=== PATIENT | female | born 1995 | race Caucasian/White ===

== ENCOUNTER → 2016-12-19 | Outpatient (CLI) | payer MEDICAID ==
[~2016-12-19] MED LIST: ADIPEX-P37.5 M2 PO; ESCITALOPRAM10 M1 PO; ROBAXIN-750750 MG PO; TORADOL10 MG PO
[2016-12-22 14:39] LABS: Neisseria gonorrhoeae, NAA Negative (Negative)
== END ==
LOC: LAB 16:54
PROVIDERS: Nurse Practitioner Obstetrics & Gynecology
DX: Z34.80 Encounter for supervision of other normal pregnancy, unspecified trimester (principal)

== ENCOUNTER 2017-04-23 21:09 | Emergency (ER) | payer MEDICAID ==
[~2017-04-23] VITALS: Ht 170.2 cm; Wt 138.8 kg
--- NOTE | 2017-04-23 21:24 | Emergency Room Report ---
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 N Clinical Suspician of Infection? Y Mental Status: 1 - Regular (Normal Baseline) Sepsis Risk:Low Sepsis Risk Have you (or family members/close friends) recently traveled outside the [place]? N If Yes, where/when: Have you had exposure to infectious disease within the past month? TB? Other? Specify: Source patient, RN notes reviewed, family, old records Exam Limitations no limitations Comment 36 weeks with nausea and back pain with no fever or vag bleeding or labor crampy pain - has not felt well for a few days Cardiac Chest Pain Chest pain indicative of cardiac No Timing/Duration this evening Severity moderate ALLERGIES Coded Allergies: No Known Allergies (03/15/17) History Medical History General CAD? No Angina: No HI: No Hypertension? No Hyperlipidemia? No CHF? No DVT? No PE? No COPD? No Asthma? No Anemia? No GERD? No Gastric ulcers? No GI Bleed? No Hernia? No Thyroid Problems? No Hypothyroidism? No CVA? No Seizures? No Diabetes? No Renal Insuffiency? No End Stage Renal Disease? No UTI? No Stones? No BPH? No GB Disease: No Nephritic Syndrome? No Asplenia? No Hepatitis? No Sickle Cell Disease? No Arthritis? No Migraines? No Cataracts? No Glaucoma? No MRSA? No HIV? No TB? No Anxiety? No Depression? No Cancer? No More? 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 Respiratory denies cough, denies shortness of breath, denies wheezing Cardiovascular denies chest pain, denies palpitations Gastrointestinal see HPI, denies abdominal pain, diarrhea, nausea, denies vomiting Genitourinary denies: abnormal vaginal bleeding, dysuria, frequency, hesitancy, hematuria. Musculoskeletal denies back pain, denies joint pain, denies joint swelling, denies neck pain Skin denies rash Psychiatric/Neurological see HPI, headache, denies seizure Physical Exam Vital Signs Vital Signs Date Time Temp Pulse Resp B/P Pulse O2 O2 Flow FiO2 Ox Delivery Rate 04/23 2250 82 18 112/61 97 04/23 215 91 18 129/68 97 04/23 2114 98.0 86 14 120/70 97 - WBC >12,000 or <4,000 or 10% bands? 2 or more SIRS Criteria Met? B/P:112/ MAP:86 Creatinine >2.0? UA output<0.5ml/kg/hr for 2 hrs? Platelet count >100,000? Lactate >2.0mmol/1? INR >1.2 or PTT > than 60 sec? Evidence of Organ Dysfunction? Provider documented clinical suspician of infection? Y Sepsis Criteria Count: 1 Sepsis Risk: Low Sepsis Risk General Appearance no apparent distress Eye Exam - bilateral eye PERRL, bilateral eye EOMI Ear, Nose, Throat normal ENT inspection Neck non-tender Respiratory Status No: respiratory distress. 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 No Results/Orders Laboratory Tests 04/23/172157: Urine Color YELLOW, Urine Appearance CLEAR, Urine pH 6.5, Ur Specific [place] 1.020, Urine Protein NEGATIVE, Urine Ketones NEGATIVE, Urine Blood NEGATIVE, Urine Nitrate NEGATIVE, Urine Bilirubin NEGATIVE, Urine Urobilinogen 0.2, Ur Leukocyte Esterase 2+ H, Urine RBC 3-5, Urine WBC 20-50, Ur Squamous Epith Cells TNTC, Amorphous Sediment 3+, Urine Bacteria 3+, Urine Glucose NEGATIVE 04/23/172139: Sodium 137, Potassium 3.7, Chloride 104, Carbon Dioxide 24, BUN 6 L, Creatinine 0.7, Estimated Creat Clear 279 H, Estimated GFR (MDRD) 106, Glucose 93, Calcium 9.1, Total Bilirubin 0.2, AST 9 L, ALT 14, Alkaline Phosphatase 147 H, Total Protein 6.6, Albumin 2.4 L, Globulin 4.2 H, Albumin/Globulin Ratio 0.6 L, Amylase 27, Lipase 86, WBC 11.1 H, RBC 3.80 L, Hgb 11.0 L, Hct 33.0 L, MCV 86.9, RDW 14.2, Plt Count 215, MPV 8.8, Gran % 69.7, Gran # 7.7, Lymphocytes % 21.7, Monocytes % 6.2, Eosinophils % 2.2, Basophils % 0.2, Lymphocytes # 2.4, Monocytes # 0.7, Eosinophils # 0.2, Basophils # 0.0, PUBS MCHC 33.5, MCH 29.1 Current Medication Orders Sig/Ck Start time Last Medication Dose Route Stop Time Status Admin Ampicillin Sodium 2 GM ONCE ONE 04/230 AC Sodium Chloride 50 ML IV 04/23 2314 Ampicillin Sodium 0 .STK-MED ONE 04/23 2259 DC IV Sodium Chloride 250 ML .STK-MED ONE 04/23 2259 DC IV Sodium Chloride 1,000 ML .STK-MED ONE 04/23 2144 DC IV Sodium Chloride 1,000 ML .Q1H1M 04/23 2130 DC 04/23 IV 04/23 Sodium Chloride 10 ML PRN PRN 04/23 2130 AC IV 04/24 2123 Sodium Chloride 10 ML PRN PRN 04/23 2130 AC IV 04/24 2124 Sodium Chloride 1,000 ML .Q1H1M 04/23 2130 DC 04/23 IV 04/23 Sodium Chloride 10 ML PRN PRN 04/23 2130 AC IV 04/24 2129 Orders Procedure Date/time Status CULTURE, URINE 04/23 2158 Active IV SALINE LOCK 04/23 2126 Active URINALYSIS/COMPLETE 04/23 2123 Complete LIPASE 04/23 2123 Complete CBC WITH AUTO DIFF 04/23 2123 Complete CHEM 12 PROFILE 04/23 2123 Complete AMYLASE 04/23 2123 Complete Departure Departure Time of Disposition 2248 Disposition DC Home or Self Care(routine) Clinical Impression Primary Impression: UTI (urinary tract infection) Qualifiers: Urinary tract infection type: acute cystitis Hematuria presence: without hematuria Qualified Code: N30.00 - Acute cystitis without hematuria Secondary Impressions: Qualifiers: Weeks of gestation: 36 weeks Qualified Code: Z3A.36 - 36 weeks gestation of Condition STABLE Referrals AHMET MOSS (Family) discussed with dr rojas Patient Instructions DI for Vomiting -- Adult Additional Instructions will go to ob for nst and call ob for follow up Discharge Counseling Counseled pt/family regarding diagnosis, test results, follow up needs ED Critical Care Critical Care No at 2301
[2017-04-23 21:55] LABS: LYMPH # 2.4 K/mm3 (0.7-4.5); LYMPH % 21.7 % (10-50.0)
[2017-04-23 22:09] LABS: URINE BILIRUBIN - DIPSTICK NEGATIVE (NEG); URINE BLOOD NEGATIVE (NEG)
[2017-04-23 22:31] LABS: URINE SQUAMOUS CELLS TNTC #/hpf (0-5)
[2017-04-24 00:04] VITALS: BP 112/61
== END 2017-04-23 23:52 | disposition home or self-care (01) ==
LOC: ER 21:09
PROVIDERS: Emergency Medicine
DX: O23.13 Infections of bladder in pregnancy, third trimester (principal); Z3A.36 36 weeks gestation of pregnancy; Z87.891 Personal history of nicotine dependence

== ENCOUNTER 2017-04-23 23:00 | Outpatient (CLI) | payer MEDICAID ==
[~2017-04-23] VITALS: Ht 170.2 cm; Wt 140.2 kg
[2017-04-23 23:59] VITALS: BP 139/78
== END 2017-04-24 00:40 | disposition home or self-care (01) ==
LOC: OB 23:00 → OBOUT 23:00 → OB 23:01 → OBOUT 04-24 00:40
DX: O26.93 Pregnancy related conditions, unspecified, third trimester (principal); Z3A.36 36 weeks gestation of pregnancy; R51 Headache; R53.1 Weakness; R11.0 Nausea

== ENCOUNTER 2017-05-06 21:50 | Outpatient (CLI) | payer MEDICAID ==
[~2017-05-06] VITALS: Ht 170.2 cm; Wt 138.8 kg
[2017-05-06 22:25] VITALS: BP 138/80
[2017-05-06 22:46] LABS: AMPHETAMINES/METAMPHETAMINES NEGATIVE ng/mL (<1000)
== END 2017-05-06 23:20 | disposition home or self-care (01) ==
LOC: OBOUT 21:50 → OB 21:53 → OBOUT 23:20
PROVIDERS: Nurse Practitioner Obstetrics & Gynecology
DX: O36.8130 Decreased fetal movements, third trimester, not applicable or unspecified (principal); Z3A.38 38 weeks gestation of pregnancy; R10.2 Pelvic and perineal pain

== ENCOUNTER 2017-05-15 01:55 | Inpatient (IN) | payer MEDICAID ==
[~2017-05-15] VITALS: Ht 170.2 cm; Wt 137.4 kg
[2017-05-15 05:48] LABS: HEMOGLOBIN 11.6 g/dL (12.2-16.2); LYMPH # 2.2 K/mm3 (0.7-4.5); LYMPH % 20.8 % (10-50.0)
[2017-05-15 05:50] VITALS: BP 114/55
[2017-05-15] MEDS ORDERED: PRENATAL PLUS1 TA1 PO (05:55)
[2017-05-15] MEDS ORDERED: PHENERGAN25 M3 PO (05:56)
[2017-05-15 06:09] LABS: ABO BLOOD TYPE O
[2017-05-15 06:10] LABS: RH BLOOD TYPE POSITIVE
[2017-05-15 07:15] VITALS: BP 103/68
--- NOTE | 2017-05-15 07:48 | LABOR NOTE ---
Laboring Subjective Subjective Date 05/15/17 Time 0746 Subjective: Pt is having regular contractions Laboring Objective Objective NST: Reactive Contractions: q 2-3 minutes Cervical dilation: 2 Effacement: 75% Station: -2 Membranes are: Artificially ruptured (with clear fluid) Fetus monitoring? Yes Type: Internal Comment: I inserted an IUPC and clip Laboring Assessment Assessment Progressing? Yes Cephalopelvic disproportion? No Problem List: 1. Normal delivery Laboring Plan Plan Anethesia for epidural? No Continue to labor down? Yes Plan for ? No Continue to monitor? Yes Start pushing? No at 0747
[2017-05-15 10:39] LABS: URINE BILIRUBIN - DIPSTICK NEGATIVE (NEG); URINE BLOOD NEGATIVE (NEG)
[2017-05-15 10:56] LABS: AMPHETAMINES/METAMPHETAMINES NEGATIVE ng/mL (<1000)
--- NOTE | 2017-05-15 11:16 | LABOR NOTE ---
Laboring Subjective Subjective Date 05/15/17 Time 1114 Subjective: Pt is having regular contractions Laboring Objective Objective NST: Reactive Contractions: q 2-3 minutes Cervical dilation: 3-4 Effacement: 90% Station: -1 Membranes are: Artificially ruptured Fetus monitoring? Yes Type: Internal Laboring Assessment Assessment Progressing? Yes Cephalopelvic disproportion? No Problem List: 1. Normal delivery Laboring Plan Plan Anethesia for epidural? Yes Continue to labor down? Yes Plan for ? No Continue to monitor? Yes Start pushing? No at 1115
--- NOTE | 2017-05-15 13:39 | LABOR NOTE ---
Laboring Subjective Subjective Date 05/15/17 Time 1338 Subjective: Pt is having regular contractions Laboring Objective Objective NST: Reactive Contractions: q 2-3 minutes Cervical dilation: 4 Effacement: 90% Station: -1 Membranes are: Artificially ruptured Fetus monitoring? Yes Type: Internal Laboring Assessment Assessment Progressing? Yes Cephalopelvic disproportion? No Problem List: 1. Normal delivery Laboring Plan Plan Anethesia for epidural? Yes Continue to labor down? Yes Plan for ? No Continue to monitor? Yes Start pushing? No at 1336
--- NOTE | 2017-05-15 15:14 | LABOR NOTE ---
Laboring Subjective Subjective Date 05/15/17 Time 1513 Subjective: Pt is having urge to push, Pt is having regular contractions Laboring Objective Objective NST: Reactive Contractions: q 2-3 minutes Cervical dilation: 4 Effacement: 100% Station: -1 Membranes are: Artificially ruptured Fetus monitoring? Yes Type: Internal Laboring Assessment Assessment Progressing? Yes Cephalopelvic disproportion? No Problem List: 1. Normal delivery Laboring Plan Plan Anethesia for epidural? Yes Continue to labor down? Yes Plan for ? No Continue to monitor? Yes Start pushing? No at 1514
--- NOTE | 2017-05-15 17:22 | ACUTE CARE PROGRESS NOTE (QUA) ---
Progress Notes Subjective Date 05/15/17 Time 1719 Note She has had regular contractions all day and really has not progressed beyond 4 cm. The head has significant molding but is still high. The cervix is 90 percent effaced. Given this lack of progression we will go ahead with a . I discussed the risks of surgery that includes bleeding, infection, injuries to the bowel and bladder. We discussed the rare risk of DVT. All questions were answered and consents were signed. Patient/family reports: no complaints Objective Findings Last VS-Temp:98.2 B/P:103/68 Pulse:70 Resp:17 SaO2: Last weight lbs:303 oz:0 K.440 Method:Stated Exam General appearance: normal appearance, alert, awake, no acute distress Reviewed: vital signs, lab results Assessment/Plan Problem List 1. pelvic disproportion antepartum 2. delivery delivered Patient condition Stable Plan: continue current care, section This inpt stay is expected to cross 2 MNs from start of care Yes Comments: Given the fact that she has not progressed all day despite regular contractions we will go ahead with a section. Since her last baby she has gained a significant amount of weight. I think that her pelvis is obstructed by her additional weight gain. at 1727
--- NOTE | 2017-05-15 18:47 | Operative Note ---
Procedure/Operative Record Procedure Date of procedure: 05/15/17 Pre-Op Dx: Term , mild -induced hypertension, pelvic disproportion, maternal obesity Post-Op Dx: Term , mild induce hypertension, fetopelvic disproportion, maternal obesity Procedure performed: Primary lower segment transverse section Surgeon: Dr. Lars Frank Accounts Receivable Clerk(s): Dr. La Anesthesia: Will Finley, epidural EBL (ml): 600 Clinical note: She is a 22-year-old 2 para 1 who was 39 weeks gestational age. She had a slight increase in her blood pressure in my office in the 140s over 90s range and as result of that we elected to bring her in at term for induction of labor. She's had a previous 7 lbs. 10 oz. baby. She has however gained over 100 pounds since her last baby was born 3 years ago. She was started on IV oxytocin had her membranes ruptured. She really failed to progress beyond 4 cm. She had been at 4 cm for about 5 or 6 hours. After having discussed the risks and benefits we elected to go ahead with a primary lower segment transverse section. Operative findings: She delivered a live-born female child at 6:15 PM in the evening of May 15, 2017. The baby had Apgars of 9 at 1 minute and 9 at 5 minutes. PH was 7.25. The baby's head was not really engaged in the pelvis at all. Operative note: She was taken to the operating room where epidural anesthesia was found be adequate. She was prepped and draped in normal sterile fashion in the supine position with a leftward tilt. A Crockett catheter was in the bladder. A Pfannenstiel skin incision was made with knife then carried through to the underlying layer of fascia with cautery. The fascia was opened in the midline with cautery and extended laterally using Hart scissors. [place] clamps were applied to the superior aspect of the fascial incision which was tented up and the underlying rectus muscles dissected off using cautery. The Trent clamps were then applied to the inferior aspect of the fascial incision which in a similar fashion was tented up and the underlying rectus muscles dissected off using cautery. The rectus muscles were then in the midline, the peritoneum identified, and entered sharply with Metzenbaum scissors. This incision was then extended superiorly and inferiorly with cautery. We had good visualization of the bladder inferiorly. The bladder peritoneum was then opened in the midline and extended laterally using Metzenbaum scissors. A bladder flap was created digitally. The lower blade of the Digna was inserted so as to push the bladder out of the way. Transverse incision was made through the uterine muscle to the amnion. This incision was then extended laterally using fingers traction. The amnion was entered sharply with knife. The infant's head was then delivered atraumatically. This was followed by the anterior shoulder and the rest of the 's body atraumatically. The oropharynx and nasopharynx were bulb suctioned. The infant was then handed off to Dr. Grimaldo who assigned Apgars of 9 at 1 minute and 9 at 5 minutes. We then obtained cord blood as well as cord pH. Using gentle traction on the cord and countertraction on the fundus I was able to easily deliver the placenta intact. It had a normal three-vessel cord. The uterus was then cleared of clots and debris and exteriorized from the abdominal cavity. The uterine incision was then closed using running 0 Vicryl suture in a locked fashion. A second layer of the same suture was used to imbricate the first layer. The bladder peritoneum was then closed using running 2-0 Vicryl suture in a locked fashion. The gutters and cul-de-sac were then cleared of clots and debris and the uterus was returned the abdominal cavity. Once again hemostasis was assured. The peritoneum was grasped with Jie clamps and closed using running 2-0 Vicryl suture. The rectus muscles were then reapproximated using running 0 Vicryl suture. The fascia was closed using running #1 Vicryl suture. The subcutaneous tissues were then irrigated with warm water followed by closure Sia's fascia using running 2-0 Monocryl suture. The skin was closed with jono. The skin was then doubly cleansed with Hibiclens. Sterile dressings were applied. She tolerated the procedure well and was taken to the recovery room in excellent condition. All sponges minute and needle counts were correct. Estimate a blood loss was approximately 600 mL. Conplications: None Specimens: Products of conception at 1846
--- NOTE | 2017-05-15 18:55 | Anesthesia Record ---
Anesthesia Record Part I Total IV fluids: 1200 EBL (ml): 600 Urine Output: 500 B/P: 119/57 % SaO2: 98 Pulse: 77 Resps: 18 Temp: 97.6 Patient is: Awake, Stable Stable to PACU at: 1854 at 1856
--- NOTE | 2017-05-15 18:57 | Anesthesia Record ---
Anesthesia Record Part II Discharge time: 1953 Destination: OB PACU nurse assessment review? Yes Patient is: Awake, Stable Anesthesia complications? No at 4305
[2017-05-15 22:00] VITALS: BP 141/64
[2017-05-16 06:26] LABS: HEMOGLOBIN 10.7 g/dL (12.2-16.2)
--- NOTE | 2017-05-16 08:41 | ACUTE CARE PROGRESS NOTE (QUA) ---
Progress Notes Subjective Date 05/16/17 Time 0839 Note She continues to do very well. She is eating and drinking and ambulating. She is breast-feeding. Her lochia is normal. Her pain is well controlled. Patient/family reports: feeling better, no complaints Objective Findings Last VS-Temp:97.8 B/P:141/64 Pulse:85 Resp:18 SaO2:100 ROOM AIR Last weight lbs:303 oz:0 K.440 Method:Stated Laboratory Tests 05/16/17 0600: Hgb 10.7 L, Hct 32.9 L 05/15/17 1827: Cord Blood pH 7.25 L 05/15/17 0940: Opiates Screen NEGATIVE, Urine Methadone Screen NEGATIVE, Barbiturates NEGATIVE, Phencyclidine Screen NEGATIVE, Amphetamines Screen NEGATIVE, Benzodiazepines Screen NEGATIVE, Cocaine Screen NEGATIVE, Marijuana (THC) Screen NEGATIVE, Urine Color YELLOW, Urine Appearance CLEAR, Urine pH 6.5, Ur Specific [place] 1.010, Urine Protein NEGATIVE, Urine Ketones NEGATIVE, Urine Blood NEGATIVE, Urine Nitrate NEGATIVE, Urine Bilirubin NEGATIVE, Urine Urobilinogen 0.2, Ur Leukocyte Esterase NEGATIVE, Urine RBC NONE, Urine WBC 3-5, Ur Squamous Epith Cells NONE, Urine Bacteria TRACE, Hyaline Casts OCC, Urine Glucose NEGATIVE Exam General appearance: normal appearance, alert, awake, no acute distress Reviewed: vital signs, lab results Assessment/Plan Problem List 1. pelvic disproportion antepartum 2. delivery delivered Patient condition Improving, Stable Plan: continue current care This inpt stay is expected to cross 2 MNs from start of care Yes Comments: She continues to do very well. We will plan to send her home in 48 hours. at 0840
--- NOTE | 2017-05-16 08:45 | Discharge Summary ---
Discharge Summary Admission date: 05/15/17 Discharge date: 05/18/17 Discharge diagnoses: Term , fetopelvic disproportion, maternal obesity, mild - induced hypertension Clinical note: She is a 22-year-old 2 para 2 who was 39 weeks gestational age. She seen in my office and had increased blood pressure. As result of that we brought her in for induction of labor. Course in hospital: She was started on IV oxytocin and had her membranes ruptured. She really did not progress beyond 4 cm and as result of that we elected to perform a primary lower segment transverse section. She has gained over 100 pounds since her last delivery. On May 15, 2017 she underwent a primary lower segment transverse section and delivered a live-born female child. She weighed 7 lbs. 10 oz. and was 19 inches long. She had Apgars of 9 at 1 minute and 9 at 5 minutes. She has done well and has remained afebrile throughout her hospitalization. She is eating and drinking and ambulating. She is breast- feeding. She has O+ blood, she is rubella immune and was group B Streptococcus negative. Her final assembly inspector is Dr. Medrano. Laboratory Tests 05/16/17 0600: Hgb 10.7 L, Hct 32.9 L 05/15/17 1827: Cord Blood pH 7.25 L 05/15/17 0940: Opiates Screen NEGATIVE, Urine Methadone Screen NEGATIVE, Barbiturates NEGATIVE, Phencyclidine Screen NEGATIVE, Amphetamines Screen NEGATIVE, Benzodiazepines Screen NEGATIVE, Cocaine Screen NEGATIVE, Marijuana (THC) Screen NEGATIVE, Urine Color YELLOW, Urine Appearance CLEAR, Urine pH 6.5, Ur Specific [place] 1.010, Urine Protein NEGATIVE, Urine Ketones NEGATIVE, Urine Blood NEGATIVE, Urine Nitrate NEGATIVE, Urine Bilirubin NEGATIVE, Urine Urobilinogen 0.2, Ur Leukocyte Esterase NEGATIVE, Urine RBC NONE, Urine WBC 3-5, Ur Squamous Epith Cells NONE, Urine Bacteria TRACE, Hyaline Casts OCC, Urine Glucose NEGATIVE Plans for ongoing care: She is discharged home to follow-up with me in approximately 2 weeks time per Discharge medications She will continue with her vitamins and iron. She is given a prescription for Percocet 5/325 #30 tablets. DC/follow-up instructions She was given the usual instructions with respect to limiting her activity, driving and sexual activity. She was given instructions with respect to wound care. Condition at discharge Stable and improved at 0844
[2017-05-16] MEDS ORDERED: PERCOCET 5/3251 EACH PO (08:54)
[2017-05-16 22:00] VITALS: BP 142/72
--- NOTE | 2017-05-17 06:52 | ACUTE CARE PROGRESS NOTE (QUA) ---
Progress Notes Subjective Date 05/17/17 Time 0651 Note This is and postop day number 2. The patient is afebrile. Vital signs stable. Wound clean. Abdomen soft. Uterine fundus involuting well. Lochia normal. Hemoglobin 10.7 g, but clinically stable. Breast-feeding well. Impression: Stable. Assessment/Plan Problem List 1. pelvic disproportion antepartum 2. delivery delivered This inpt stay is expected to cross 2 MNs from start of care Yes at 0651
--- NOTE | 2017-05-17 08:15 | PHARMACY CLINIC NOTE ---
Patient Demographics Patient Demographics Admission date: 05/15/17 Date: 05/17/17 Time: 08 Allergies Coded Allergies: No Known Drug Allergies (-- 05/15/17) HEIGHT- FT: 5 IN: 7.00 K.440 VTE General Information Disclaimer The following section includes nursing documentation that has been pulled in for pharmacy review. VTE prophylaxis NQF [id number] VTE prophylaxis ordered? Yes Type of prophylaxis/treatment: ICD at 0814
[2017-05-17 19:30] VITALS: BP 132/71
--- OUTSIDE RECORDS SUMMARY | 2017-05-18 07:50 | External Medical Summary Rpt | CCD ---
Author Author , JOANN Organization NAJMANITA Address Unknown Phone [email or web address] Team Providers Care Voice Systems Engineer Name Role Phone [facility], [facility] CORTEZ DURGA, CORTEZ DURGA Unavailable Unavailable CORTEZ DURGA, CORTEZ DURGA Unavailable Unavailable MARSHAL MCCORMACK YESIKA, Unavailable Unavailable MARSHAL ARAYA MD YESIKA, Unavailable Unavailable MARSHAL MCCORMACK YESIKA JONI KRI, Unavailable Unavailable JONI WALDRON BERNJOE DURGA, Unavailable Unavailable BERNJOE DURGA LAKE, LAKE Unavailable Unavailable PELON SUZIE, PELON SUZIE Unavailable Unavailable [facility] Unavailable Unavailable RISK O, [facility] RISK O TOMASZ TOLBERT Unavailable Unavailable [facility] Unavailable Unavailable OR[facility]EDIC CTR, [facility] Unavailable Unavailable PHYSICIANS, [facility] Unavailable Unavailable MEDICAL CE, [facility] JAYCEE CLEMENTS Unavailable Unavailable KAYLEEN DIAL VINAYAK, DIAL VINAYAK Unavailable Unavailable DIAL VINAYAK, DIAL VINAYAK Unavailable Unavailable LIZZY RUSSELL, Unavailable Unavailable LIZZY RUSSELL [facility], [facility] Unavailable [facility] Unavailable Unavailable ASSOCIATES, [facility] Unavailable Unavailable MEDICAL, [facility] GALEN NAPIER, Unavailable Unavailable GALEN NAPIER [facility] Unavailable Unavailable INC, [facility] COSTA AMA, CO[facility] AMA Unavailable Unavailable [facility], Unavailable Unavailable [facility] HORN MARIBEL, HORN MARIBEL Unavailable Unavailable JEROME DORIE, JEROME DORIE Unavailable Unavailable JEROME DURGA, JEROME DURGA Unavailable Unavailable MALVIN CHR, MALVIN Unavailable Unavailable CHR MALVIN LAR, MALVIN Unavailable Unavailable [facility] Unavailable Unavailable [facility], [facility]available Unavailable HOLDINGS, [facility], Unavailable Unavailable [facility] [employer] [employer] [facility] Un[facility], [facility] Unavailable [facility]available [facility], [facility] CARSON SUZIE, CARSON Unavailable Unavailable SUZIE CARSON SUZIE, CARSON Unavailable Unavailable SUZIE [facility] MARIA ALEJANDRA, Unavailable Unavailable [facility] MARIA ALEJANDRA [facility] MARIA ALEJANDRA, Unavailable Unavailable [facility] MARIA ALEJANDRA MULBERRY CAROLA, Unavailable Unavailable MULBERRY CAROLA [facility] Unavailable Unavailable PRACTICE, [facility], Unavailable Unavailable [facility] Unavailable Unavailable CARE CL, [facility] CARE CL DEYANIRA R H, Unavailable Unavailable DEYANIRA R Ly BOYD, Unavailable Unavailable DEYANIRA R ALBINO ORDMAN STA, ORDMAN Unavailable Unavailable STA ORDMAN STA, ORDMAN Unavailable Unavailable ST[facility] Unavailable Unavailable CENTER, [facility] Unavailable Unavailable CENTER, [facility] Unavailable Unavailable SQUAD, [facility] Unavailable Unavailable SQUAD, [facility] MERYL II KAYLEEN, MERYL Unavailable Unavailable II KAYLEEN BROWN YESIKA, Unavailable Unavailable BROWN YESIKA SADEK MOH, SADEK MOH Unavailable Unavailable EVAN ANG, EVAN Unavailable Unavailable ANG EVAN ANG, EVAN Unavailable Unavailable ANG [facility], Unavailable Unavailable [facility] SHEWMAKER ASTON, Unavailable Unavailable SHEWMAKER ASTON SMALARA BERNICE, SMALARA Unavailable Unavailable BERNICE SPENDAL, SPENDAL Unavailable Unavailable [facility] Unavailable Unavailable [facility] Unavailable Unavailable CENTER, [facility] Unavailable Unavailable PHYSICIANS, [facility] Unavailable Unavailable JOEY, [facility] CHRISTINE, JESSI Unavailable Unavailable EMMETT VERN LIS, Unavailable Unavailable VERN LIS TABELING JR GABE, Unavailable Unavailable TABELING JR GABE [facility] Unavailable Unavailable #5, [facility] Un[facility] Un[facility] -[facility], [facility], Unavailable Unavailable [facility], Unavailable Unavailable [facility] CARLITOS ANASTASIA, Unavailable Unavailable CARLITOS ANASTASIA CARLITOS ANASTASIA, Unavailable Unavailable CARLITOS ANASTASIA Purpose Continuity of Care Document - 08-15-2008 through 2016 Problems Code Diagnosis DOS Provider Status [id number] ENC 04-12-2017 [facility] SUPERVISION [facility] OTH NORMAL INC PREG UNS TRIMESTER [id number] DECREASED 03-15-2017 [facility] THIRD TRIMESTER NA/UNS Z3A30 30 WEEKS 03-15-2017 [facility] GESTATION [facility] OF INC S29182 OTHER SPEC 01-03-2017 [place] [facility] COND 3RD TRIMESTER Z36 ENCOUNTER 01-03-2017 [facility] FOR [facility] INC SCREENING OF MOTHER Z3A20 20 WEEKS 01-03-2017 [place] [facility]ICAL OF IMAGING ASS C22019 UTERINE 11-23-2016 [facility] SIZE-DATE [facility] DISCREPANCY INC FIRST TRIMESTER Z3492 ENC 11-23-2016 [facility] MEDICAL NORMAL IMAGING ASS UNS 2 TRIMESTER Z3A15 15 WEEKS 11-23-2016 [facility] MEDICAL OF IMAGING ASS E6601 MORBID 11-08-2016 [facility] SE[facility]ERE PHYSICIANS OBESITY DUE GROUP TO EXCESS CALORIES Z3201 ENCOUNTER 11-08-2016 [facility] FOR [facility]ANS GROUP TEST RESULT POSITIVE O209 HEMORRHAGE 10-24-2016 ST. IN EARLY JOVITA JOEY UNSPECIFIED O210 MILD 10-24-2016 ST. HYPEREMESIS JOVITA GRAVIDARUM JOEY Z3A09 9 WEEKS 10-24-2016 ST. GESTATION JOVITA OF JOEY [id number] PERSONAL 10-24-2016 ST. HISTORY OF JOVITA NICOTINE JOEY DEPENDENCE [id number] STRAIN 03-12-2016 [facility] H & TENDON ORTHOPAEDIC NECK LEVL CTR INIT ENC [id number] STRAIN 03-12-2016 [facility] MUSCLE H FASCIA & ORTHOPAEDIC TENDON LOW CTR BACK INITIAL [id number] SPRAIN OTH 03-08-2016 [facility] LUMBAR INC SPINE & PELVIS INIT ENC Z720 TOBACCO USE 03-08-2016 [facility] Z31374 OTHER LONG 02-21-2016 ST TERM JOVITA CURRENT MED CTR CMV DRIVER DRUG ST THERAPY H5203 HYPERMETROP 05-11-2015 [facility] IA AUBU[facility]ON BILATERAL MARIA ALEJANDRA H5213 MYOPIA 05-11-2015 CORTEZ DURGA BILATERAL 5920 CALCULUS OF 01-04-[address]A KIDNEY 7880 RENAL COLIC 01-03-2015 [facility] 06044 UNSPECIFIED 12-09-2014 NEW INFECTIVE [facility] OTITIS FAMILY EXTERNA PRACTICE 66363 OBESITY, 11-22-2014 NEW UNSPECIFIED [facility] FAMILY PRACTICE 06780 UNSPECIFIED 11-22-2014 [facility] VULVOVAGINI TIS V7231 ROUTINE 11-22-2014 [facility] FAM[facility] AL MEDICAL CE EXAMINATION 462 ACUTE 10-31-2014 NEW PHARYNGITIS [facility] 7862 COUGH 10-31-2014 [facility] 7867 ABNORMAL 10-31-2014 NEW CHEST [facility] SOUNDS MED CTR 63155 ACUTE 10-26-2014 NEW LARYNGITIS, [facility] WITHOUT FAMILY MENTION OF PRACTICE OBSTRUCTIO 4659 ACUTE URIS 10-26-2014 NEW OF [facility] UNSPECIFIED FAMILY SITE PRACTICE 15478 VOMITING 10-16-2014 [facility] 93700 DIARRHEA 10-16-2014 [facility] 74982 NAUSEA WITH 10-02-2014 [facility] 85174 DYSHIDROSIS 08-12-2014 NEW [facility] FAMILY PRACTICE 06582 NAUSEA 06-10-2014 [facility] ALONE RADI[facility] PC 61407 ABDOMINAL 06-10-2014 F&S PAIN RIGHT RADIOLOGY UPPER PC QUADRANT 60079 ABDOMINAL 06-10-2014 NEW PAIN OTHER [facility] SPECIFIED MED CTR SITE 5990 URINARY 06-08-2014 NEW TRACT [facility] INFECTION FAMILY SITE NOT PRACTICE SPECIFIED 7048 OTHER 05-06-2014 NEW SPECIFIED [facility] DISEASE OF FAMILY HAIR&HAIR PRACTICE FOLLICLES V2689 OTHER 05-04-2014 [facility] MANAGEMENT V7241 05-04-2014 [facility] OR TEST CENTER NEGATIVE RESULT 1179 OTHER AND 04-02-2014 NEW UNSPECIFIED [facility] MYCOSES FAMILY PRACTICE 35670 OTHER 02-15-2014 NEW MALAISE AND [facility] FATIGUE MED CTR 7831 ABNORMAL 02-15-2014 NEW WEIGHT GAIN [facility] MED [facility] 6989 UNSPECIFIED 02-02-2014 NEW [place]IT[place] [facility] [place] [address] UNSPECIFIED 10-12-2013 NEW SITE OF [facility] ANKLE PRIMARY SPRAIN AND CARE CL STRAIN 49036 MATERNAL 10-06-2013 CARL[facility]OS MENTAL D/O ANASTASIA COND/COMPLI CATION 3670 HYPERMETROP 09-21-2013 [place] SUZIE [place] 4556 UNSPEC 08-26-2013 DIAL VINAYAK HEMORRHOIDS WITHOUT MENTION COMPLICATIO N 6235 LEUKORRHEA 08-26-2013 DIAL V[facility]AK NOT SPECIFIED INFECTIVE V242 ROUTINE 08-26-2013 DIAL VINAYAK FOLLOW-UP V2501 GENERAL 08-26-2013 DIAL VINAYAK COUNSELING PRESCRIPTIO N ORAL CONTRACEPTS 650 NORMAL 08-18-2013 [facility] DELIVERY MAR V270 OUTCOME OF 08-18-2013 [facility] DELIVERY MAR SINGLE LIVEBORN 2859 UNSPECIFIED 08-16-2013 [facility] MEDICAL 54921 POST TERM 08-16-2013 [facility] PG DELIV REGIONAL W/WO MEDICAL MENTION ANTPRTM COND 53129 MATERNAL 08-16-2013 [facility]ICAL [facility]IV[facility] 09943 TOBACCO USE 08-16-2013 [facility] D/O COMP REGIONAL PG MEDICAL CHILDBIRTH/ PP DELIVERED 24044 SECOND-DEGR 08-16-2013 [facility] EE PERINEAL REGIONAL LACERATION MEDICAL WITH DELIVERY 50078 POST TERM 08-14-2013 EVAN ANG ANTEPARTUM COND/COMPLI CATION V220 SUPERVISION 08-11-2013 [facility] OF NORMAL MAR FIRST 2449 UNSPECIFIED 07-17-2013 [facility] HYPOTHYROID PRIMARY ISM CARE CL 4619 ACUTE 07-17-2013 NEW SINUSITIS, [facility] [place] [address] OTHER 07-06-2013 ACUTE CARE SPECIFED [place]ILLING [place] [facility] N ANTEPARTUM V222 07-06-2013 [facility] INCIDENTAL MED CTR 27309 TOB USE D/O 06-11-2013 [facility] COMP PG [place] /PP HIGH RISK O ANTEPARTM COND/COMP 46862 OBES COMP 06-11-2013 [facility] PG [place] /THE HIGH RISK O PP ANTEPARTUM COND/COMP 82164 UNS 06-11-2013 [facility] ABNORM MGMT [place] MOTH HIGH RISK O ANTPRTM COND/COMP V283 ENCOUNTER 06-11-2013 [facility] ROUTINE [place] SCREEN HIGH RISK O MALFORMATIO N ULTRASONIC 17656 THREATENED 02-12-2013 [facility] , MATERNAL ANTEPARTUM -MED 06768 UNSPEC 02-12-2013 [facility] MEDICAL [facility]ENTER ANTEPARTUM 01969 OTH SPEC 01-14-2013 [facility] CARE/INTRVN PHYSICIANS REL L&D UNS EOC 1330 SCABIES 12-17-2012 [facility] ([facility] PRIMARY CARE CL V7242 12-16-2012 [facility] OR TEST CENTER POSITIVE RESULT 1101 DERMATOPHYT 04-17-2012 NEW [facility] NAIL PRIMARY CARE CL V5869 LONG-TERM 04-17-2012 NEW (CURRENT) [facility] USE OF MED CTR OTHER MEDICATIONS V5883 ENCOUNTER 04-17-2012 NEW FOR [facility] THERAPEUTIC MED CTR DRUG MONITORING 7881 DYSURIA 01-21-2012 NEW [facility] [place] [address] HEMATURIA 01-07-2012 NEW UNSPECIFIED [facility] PRIMARY CARE CL 8820 OPEN WOUND 12-07-2011 NEW HAND NO [facility] FINGER MED CTR ALONE W/O MENTION COMP 8821 OPEN WOUND 12-07-2011 [facility] HAND EXCEPT LIFE SQUAD FINGER ALONE COMPLICATED 8910 OPEN WOUND 12-07-2011 [facility] KNEE LIFE SQUAD LEG&ANK WITHOUT MENTION COMP 9160 HIP THI 12-07-2011 NEW LEG&ANK [facility] ABRASION/FR MED CTR ICION BURN W/O INF 25808 MORBID 09-17-2011 NEW OBESITY [facility] PRIMARY CARE CL 6264 IRREGULAR 09-01-2011 NEW MENSTRUAL [facility] CYCLE MED CTR 4660 ACUTE 08-31-2011 MARSHAL MCCORMACK BRONCHITIS YESIKA 91197 OVERWEIGHT 03-26-2011 [facility] 460 ACUTE 03-26-2011 [facility]OPHARY[facility] ITIS 6269 UNS D/O 03-26-2011 [facility] MENSTRUATIO [facility] N&OTH ABN BLEED FE GNT TRACT 6929 CONTACT 11-08-2010 [facility] DERMATITIS[facility] OTHER ECZ[place] DUE UNSPEC CAUSE 7245 UNSPECIFIED 11-08-2010 [facility] BACKACHE [facility] 9165 HIP THIGH 03-02-2010 [facility] LEG&ANK [facility] INSECT BITE NONVENOMOUS INF 9199 OTH&UNSPEC 12-12-2009 [facility] SUP INJURY MIDDLE OT SCHOOL MX&UNSPEC SITES INF 9194 OTH MX&UNS 12-08-2009 [facility] SITE INSECT MIDDLE BITE SCHOOL NONVENOMOUS W/O INF 62804 UNSPECIFIED 12-07-2009 [facility] CELLULITIS [facility] AND ABSCESS OF FINGER 7295 PAIN IN 12-07-2009 [facility] SOFT MIDDLE TISSUES OF SCHOOL LIMB V8289 SPECIAL 10-24-2009 [facility] SCREENING [facility] FOR OTHER SCHOOL SPECIFIED CONDITIONS 5368 DYSPEPSIA&O 08-25-2009 [facility] THER SPEC MIDDLE DISORDERS SCHOOL FUNCTION STOMACH 7840 HEADACHE 08-25-2009 [facility] 8900 OPEN WOUND 08-15-2008 [facility] HIP&THIGH NATIONAL WITHOUT CORPORATION MENTION COMP 9596 INJURY 08-15-2008 [facility] OTHER AND NATIONAL UNSPECIFIED CORPORATION HIP AND THIGH O46.91 Antepartum hemorrhage, unspecified , first trimester R10.2 Pelvic and perineal pain Z3A.38 38 weeks gestation of Medications Na ND Rx Da Fi Fi Am Da Di Ph RX Ph St me C No te ll ll ou ys ag ar # ys at rm s nt no ma ic us Or Da si cy ia de te s n re d TE 51 08 09 20 3 00 TO Ac RC 67 -1 -0 .0 00 TA ti ON 21 1- 8- 00 00 L ve AZ 30 20 20 95 CA OL 20 17 17 86 RE E 0 98 0. PH 8% AR MA CR CY EA M #5 ON 00 03 04 10 3 00 TO Ac DA 78 -2 -2 .0 00 TA ti NS 15 4- 1- 00 00 L ve ET 23 20 20 94 CA RO 86 17 17 56 RE N 4 71 OD PH T AR 4 MA MG CY TA #5 BL ET 00 08 08 3 28 28 77 KE Ac 06 -2 -2 .0 17 AG ti 21 2- 2- 00 85 LE ve 25 20 20 11 11 11 RI 5 TA K AZ 00 08 08 0 6. 5 77 KE Ac IT 78 -2 -2 00 17 AG ti HR 11 2- 2- 0 88 LE ve OM 49 20 20 YC 66 11 11 RI IN 8 TA K 25 0 MG TA BL ET TR 51 04 04 0 60 15 76 MU Ac IA 67 -0 -0 .0 06 LB ti MC 21 6- 6- 00 25 ER ve IN 28 20 20 RY OL 20 11 11 ON 2 BR E IA 0. N 1% T CR EA M 00 01 01 0 21 6 75 NO Ac 55 -0 -0 .0 23 RF ti 50 6- 6- 00 04 LE ve 30 20 20 ET 13 11 11 R 8 HE NR Y TR 45 01 01 1 60 10 75 NO Ac IA 80 -0 -0 .0 23 RF ti MC 20 6- 6- 00 05 LE ve IN 06 20 20 ET OL 43 11 11 R ON 5 E HE 0. NR 1% Y CR EA M DO 00 07 07 0 14 7 73 NO Ac XY 14 -2 -2 .0 87 RF ti CY 32 9- 9- 00 56 LE ve CL 11 20 20 ET IN 20 10 10 R E 5 HY HE CL NR AT Y E 10 0 MG TA B MONTEJO 50 05 05 0 40 10 73 NO Ac LF 38 -0 -0 0. 19 RF ti AM 30 5- 5- 00 54 LE ve ET 82 20 20 0 ET HO 31 10 10 R XA 6 ZO HE LE NR -T Y MP MONTEJO SP 00 02 02 00 21 6 TO 72 NO Ac 55 -1 -2 .0 TA 53 RF ti 50 8- 6- 00 L 77 LE ve 30 20 20 CA ET 13 10 10 RE R 8 PH HE AR NR MA Y CY #5 Results Labs Lab Lab Date Result Refere Interp Status Commen Order Detail nces retati t Range on Drugs identified in Urine by Screen method (05-06-2017 22:20) Ampheta NEGATIV <1000 complet mine 017 E ed [Presen 22:20 ce] in Urine by Screen method 11-Hydr NEGATIV <50 complet oxy 017 E ed delta-9 22:20 tetrahy drocann abinol [Presen ce] in Unspeci fied specime n Urinalysis dipstick W Reflex Microscopic panel in Urine (04-23-2017 21:58) Amorpho 3+ NONE complet us 017 ed sedimen 21:58 t [Presen ce] in Urine sedimen t by Light microsc opy Bacteri 3+ O complet a 017 ed [Presen 21:58 ce] in Urine sedimen t by Light microsc opy Erythro 3-5 0 complet cytes 017 ed [Presen 21:58 ce] in Urine sedimen t by Light microsc opy Epithel TNTC 0#/hp complet ial 017 f - ed cells.s 21:58 5#/hp quamous f [Presen ce] in Urine sedimen t by Microsc opy high power field Leukocy 20-50 O complet karen 017 wbc/hpf ed [#/volu 21:58 me] in Urine Urinalysis dipstick W Reflex Microscopic panel in Urine (04-23-2017 21:58) Appeara CLEAR CLEAR complet nce of 017 ed Urine 21:58 Bilirub NEGATIV NEG complet in 017 E ed [Presen 21:58 ce] in Urine by Test strip Erythro NEGATIV NEG complet cytes 017 E ed [Presen 21:58 ce] in Urine Color YELLOW YELLOW complet of 017 ed Urine 21:58 Ketones NEGATIV NEG complet 017 E ed [Presen 21:58 ce] in Urine by Automat ed test strip Mucus 2+ NEG Abnorma complet [Presen 017 l ed ce] in 21:58 Urine sedimen t by Light microsc opy Nitrite NEGATIV NEG complet 017 E ed [Presen 21:58 ce] in Urine by Test strip Urobili 0.2 NEG complet nogen 017 ed [Presen 21:58 ce] in Urine by Test strip Procedures Procedure DOS Code Location Performer Comment PARTICLE 44513 [facility] AGGLUTINA 7 [facility] TION INC INC SCREEN EACH ANTIBODY 22564 [facility] MEDICAL AL IMAGING PROFILE [place] [address] [facility] 7 [facility] UTERUS INC INC LIMITED 1/> FETUSES CULTURE 54464 [facility] BACTERIAL 7 [facility] INC INC QUANTTATI VE COLONY COUNT URINE URNLS DIP 96450 [facility] 7 [facility] STICK/TAB INC INC LET REAGENT AUTO MICROSCOP Y DOPPLER 61508 [facility] 7 [place]ICAL [place] [address] [facility] HU[facility]RE[facility] INFUSION 7 [facility]OS[facility] HYDRATION INC INC INITIAL 31 MIN-1 HOUR US PREG 35434 PETR PETR UTERUS 7 [facility]OS[facility] W/DETAIL INC INC SURY 1ST [place] 36501 [place] ALEKSANDRA UTERUS 7 MEDICAL AFTER 1ST IMAGING TRIMEST ASS 1 [place] P[place] 82932 [facility] MERCADOON UTERUS 7 [facility] HOS[facility]OS[facility] AFTER 1ST INC [place] TRIMEST 1/ [place] [address] [place] ALEKSANDRA 7 MEDICAL UTERUS IMAGING LIMITED ASS 1/> FETUSES DRUG TEST 40357 [facility] TOLBERT PRSMV 7 PHYSICIAN QUAL DIR S GROUP OPTICAL OBS PER DAY URINE 04967 [facility] TOMASZ 7 PHYSICIAN TEST S GROUP VISUAL COLOR CMPRSN METHS IADNA [address] NEISSERIA 7 [facility] COOK GONORRHOE AE AMPLIFIED PROBE TQ IADNA [address] CHLAMYDIA 7 [facility] JOEY COOK TRACHOMAT IS AMPLIFIED PROBE TQ RADEX 72673 [facility] SPINE 6 LTH LTH CERVICAL ORTHOPAED ORTHOPAED 2 OR 3 IC CTR IC CTR VIEWS RADEX 78919 [facility] SPINE 6 LTH LTH LUMBOSACR ORTHOPAED ORTHOPAED AL 2/3 IC CTR IC CTR VIEWS THERAPEUT 32313 [facility] HU[facility]REYS IC 6 [facility] PROPHYLAC INC INC TIC/DX INJECTION SUBQ/IM DRUG TEST G0480 [facility] ST DEFINITV [address] ID MED CTR MED CTR METH P CMV DRIVER ST CMV DRIVER ST DAY 1-7 DRUG CL DRUG TEST G0479 ST ST 6 JOVITA HUSSEIN PRESUMP;I MED CTR MED CTR NSTRUMENT CMV DRIVER [facility] CMV [facility]IVER ST ED CHEMISTRY ANLYZER FITTING 00032 Spot formerly PlacePopGER SPECTACLE 5 AUBU[facility]ON AUBUCHON S XCPT Feb APHAKIA MONOFOCAL SPHERE V2100 [employer] DURGA SINGLE 5 VISION PLANO +/- 4.00 PER LENS FRAMES V2020 [employer] DURGA PURCHASES 5 SCRATCH V2760 [employer] DURGA RESISTANT 5 COATING PER LENS LENS V2784 [employer] DURGA POLYCARBO 5 FALLON OR EQUAL ANY INDEX PER LENS OPHTH 21292 TABELING TABELING MEDICAL 5 JR GABE JR GABE XM&EVAL COMPRE NEW PT 1/> [place] [address] [place] [facility] ABDOMEN & 5 STA STA PELVIS W/CONTRAS T MATERIAL URINALYSI 41456 NEW NEW S 5 [facility] MICROSCOP MED CTR MED CTR IC ONLY GONADOTRO 82571 NEW NEW PIN 5 [facility] CHORIONIC MED CTR MED CTR QUALITATI VE THERAPEUT 46895 NEW NEW IC 5 [facility] INJECTION MED CTR MED CTR IV PUSH EACH NEW DRUG BLOOD 47599 NEW NEW COUNT 5 [facility] COMPLETE MED CTR MED CTR AUTO&AUTO DIFRNTL WBC CULTURE 90473 NEW NEW BACTERIAL 5 [facility] MED CTR MED CTR QUANTTATI VE COLONY COUNT URINE BASIC 68687 NEW NEW METABOLIC 5 [facility] PANEL MED CTR MED CTR CALCIUM TOTAL UNCLASSIF J3490 NEW NEW IED DRUGS 5 [facility] MED CTR MED CTR THER 90516 NEW NEW PROPH/DX 5 [facility] NJX IV MED CTR MED CTR PUSH SINGLE/1S T SBST/DRUG COLLECTIO 93570 NEW NEW N VENOUS 5 [facility] BLOOD MED CTR MED CTR VENIPUNCT URE URNLS DIP 93405 NEW NEW 5 [facility] STICK/TAB MED CTR MED CTR LET RGNT AUTO W/O MICROSCOP Y INJECTION J2405 NEW NEW 5 [facility]IZONS ONDANSETR MED CTR MED CTR ON HCL PER 1 MG IADNA NOS 77673 MEDICAL MEDICAL 5 DIAGNOSTI DIAGNOSTI AMPLIFIED C [facility] C LAB LLC PROBE TQ EACH ORGANISM IADNA 73737 MEDICAL MEDICAL CHLAMYDIA 5 [facility]AGNOSTI DIAGNOSTI [facility] LAB LLC TRACHOMAT IS AMPLIFIED PROBE TQ IADNA 96420 MEDICAL MEDICAL TRICHOMON 5 [facility] DIAGNOSTI [facility] VAGINALIS AMPLIFIED PROBE TECH IADNA 88129 MEDICAL MEDICAL NEISSERIA 5 DIAGNOSTI DIAGNOSTI C [facility] C LAB LLC GONORRHOE AE AMPLIFIED PROBE TQ IADNA 00980 MEDICAL MEDICAL JAZMINE 5 DIAGNOSTI DIAGNOSTI SPECIES C LAB LLC C LAB LLC AMPLIFIED PROBE TQ IADNA 51815 MEDICAL MEDICAL GARDNEREL 5 DIAGNOSTI DIAGNOSTI LA C LAB LLC C LAB LLC VAGINALIS AMPLIFIED PROBE TQ THERAPEUT 92641 NEW NEW IC 5 [facility] PROPHYLAC MED CTR MED CTR TIC/[place] INJECTION SUBQ/[place] [address] NEW NEW ABDOMINAL 4 [facility] REAL MED CTR MED CTR TIME W/IMAGE LIMITED URNLS DIP 56757 NEW MALVIN 4 [facility] LAR STICK/TAB FAMILY LET RGNT PRACTICE NON-AUTO W/O MICRSCP URINE 42163 TONNY DONATOEN [address] [place] [address] [place] [address] NEW NEW THYROXINE 4 [facility] TOTAL MED CTR MED CTR COMPREHEN 24092 NEW NEW SIVE 4 [facility] METABOLIC MED CTR MED CTR PANEL BLOOD 31214 NEW NEW COUNT 4 [facility] COMPLETE MED CTR MED CTR AUTO&[place] [address] NEW NEW INSULIN 4 [facility] TOTAL MED CTR MED CTR COLLECTIO 91958 NEW NEW N VENOUS 4 [facility]ONS BLOOD [place] [address] NEW NEW THYROID 4 [facility] HOR[facility] STIMULATI MED CTR MED CTR NG HORMONE TSH OPHTH 19656 [facility] 4 SUZIE SUZIE XM&EVAL COMPRE NEW PT 1/> [place] [address] LAB MANDY LAB MANDY THYROID 4 [facility] STIMULATI HOLDINGS HOLDINGS NG HORMONE TSH BLOOD 24016 LAB MANDY LAB MANDY COUNT 4 [facility] COMPLETE HOLDINGS HOLDINGS AUTO&AUTO DIFRNTL [facility] 77543 HORN MARIBEL HORN MARIBEL DISCHARGE 4 DAY MANAGEMEN T 30 MIN/< SBSQ [id number] [facility] 4 T MAR T MAR CARE/DAY 15 MINUTES NEURAXIAL 87423 [facility] JAYCEE LABOR 4 KAYLEEN ANALG/ANE ANESTHESI S PLND ASERVICES VAGINAL DELIVERY VAGINAL 06876 HORN MARIBEL HORN MARIBEL DELIVERY 4 ONLY W/POSTPAR [facility] IN[facility] 4 [facility] ARTIFICIA MEDICAL MEDICAL L RUPTURE MEMBRANES OTHER 7[facility] 4 [facility]AL [facility]IONAL ASSISTED MEDICAL MEDICAL DELIVERY MEDICAL 734 [facility] INDUCTION 4 REGIONAL REGIONAL OF LABOR MEDICAL MEDICAL REPAIR OF [address] [facility] OTHER 4 REGIONAL REGIONAL CURRENT [place]ICAL [place] [address] [facility] 4 ANG ANG AL PROFILE W/O NON-STRES S TESTING CUL 07587 LAB MANDY LAB MANDY PRSMPTV 3 KAR KAR PTHGNC [facility] ORGANISM SCRN W/COLONY ESTIMJ CULTURE 34217 LAB MANDY LAB MANDY TYPING 3 K[facility] KAR NUCLEIC [facility] ACID PROBE DIR EA ORGANSM US PREG 11847 [facility] VERN UTERUS 3 [place] LIS W/DETAIL HIGH RISK O SURY 1ST GESTATION URINE 69274 AMY COSTA AMA 3 D FAMILY TEST MEDICAL V[place] [address] [facility] SUZIE 3 MATERNAL UTERUS 14 WK -MED [place]ANSABDL [place] [address] UTERUS 3 [facility] AFTER 1ST [facility] [place] [place] [address] UTERUS 3 [facility] REAL TIME [facility] MEDICAL W/IMAGE CENTER CENTER DCMTN TRANSVAG IADNA [address] GARDNEREL 3 [facility] VAGINALIS CENTER CENTER DIRECT PROBE TQ IADNA [address] CHLAMYDIA 3 [facility] TRACHOMAT CENTER CENTER IS AMPLIFIED PROBE TQ IADNA [address] NEISSERIA 3 [facility] GONORRHOE CENTER CENTER AE AMPLIFIED PROBE TQ IADNA [address] JAZMINE 3 [facility] SPECIES MEDICAL MEDICAL DIRECT CENTER CENTER PROBE TQ IADNA [address] TRICHOMON 3 [facility] VAG[facility]ALIS CENTER CENTER DIRECT PROBE TQ URINE 88724 TONNY DONATOEN 3 [facility] VISUAL CENTER CENTER COLOR CMPRSN METHS TRANSFERA 75467 NEW NEW SE 2 [facility] ASPARTATE MED CTR MED CTR AMINO AST SGOT TRANSFERA 05477 NEW NEW SE 2 [facility] HORIZONS ALANINE MED CTR MED CTR AMINO ALT SGPT COLLECTIO 66026 NEW NEW N VENOUS 2 [facility]IZONS BLOOD MED CTR MED CTR VENIPUNCT URE OPHTH 24899 JEROME CALIXTO JEROME DURGA MEDICAL 2 XM&EVAL COMPRE NEW PT 1/> VST FRAMES V2020 VISION SHEWMAKER PURCHASES 2 ONE ASTON LENS V2784 VISION SHEWMAKER POLYCARBO 2 ONE ASTON FALLON OR EQUAL ANY INDEX PER LENS FITTING 03479 VISION SHEWMAKER SPECTACLE 2 ONE ASTON S XCPT APHAKIA MONOFOCAL SPHERE V2100 VISION SHEWMAKER SINGLE 2 ONE ASTON VISION PLANO +/- 4.00 PER LENS DETERMINA 60084 JEROME DURGA JEROME DURGA TION 2 REFRACTIV E STATE GROUND A0425 TONNY LANCASTER MILEAGE [address] [place] [address] PER LIFE LIFE STATUTE SQUAD SQUAD MILE AMB A0427 TONNY LANCASTER SERVICE [address] [place] [address] ALS LIFE LIFE EMERGENCY SQUAD SQUAD TRANSPORT LEVEL 1 GONADOTRO 86248 NEW NEW PIN 2 [facility]IZONS FOLLICLE MED CTR MED CTR STIMULATI NG HORMONE COMPREHEN 56857 NEW NEW SIVE 2 [facility]IZONS METABOLIC MED CTR MED CTR PANEL LIPID 37874 NEW NEW PANEL 2 [facility] [place] [address] NEW NEW THYROID 2 [facility] HORIZONS STIMULATI MED CTR MED CTR NG HORMONE TSH GONADOTRO 73875 NEW NEW PIN 2 [facility] HORIZONS LUTEINIZI [place] [address] NEW NEW INSULIN 2 [facility] HORIZONS TOTAL MED CTR MED CTR COLLECTIO 45511 NEW NEW N VENOUS 2 [facility] HORIZONS BLOOD MED CTR MED CTR VENIPUNCT URE BLOOD 78885 FAMILY FAMILY COUNT 1 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 AUTO&AUTO S S DIFRNTL WBC DETERMINA 82989 YVONNE RUSSELL, TION 0 LIZZY Aaron REFRACTIV E STATE SPHERE V2100 YVONNE RUSSELL, SINGLE 0 LIZZY Aaron VISION PLANO +/- 4.00 PER LENS FITTING 01071 YVONNE RUSSELL, SPECTACLE 0 LIZZY Aaron S XCPT APHAKIA MONOFOCAL OPHTH 12893 YVONNE RUSSELL, MEDICAL 0 LIZZY M LIZZY M XM&EVAL COMPRHNSV ESTAB PT 1/> FRAMES V2020 YVONNE RUSSELL, PURCHASES 0 LIZZY Aaron SMR PRIM 55820 [facility] 0 [employer] GRAM/GIEM SA STAIN BCT FUNGI/ANASTASIA L CUL BACT 72001 [facility] XCPT 0 [place] [employer] [facility] [employer] URINE BLOOD/STO OL AEROBIC ISOL CULTURE 22702 [facility] BACTERIAL 0 [employer] ANY SOURCE ANAEROBIC ISO&ID DETERMINA 63351 YVONNE RUSSELL, TION 9 LIZZY Aaron REFRACTIV E STATE FITTING 23770 YVONNE RUSSELL, SPECTACLE 9 LIZZY Aaron S XCPT APHAKIA MONOFOCAL SPHERE V2100 YVONNE RUSSELL, SINGLE 9 LIZZY Aaron VISION PLANO +/- 4.00 PER LENS FRAMES V2020 YVONNE RUSSELL, PURCHASES 9 LIZZY Aaron OPHTH 67983 YVONNE RUSSELL, MEDICAL 9 LIZZY Aaron XM&EVAL COMPRE NEW PT 1/> VST SMPL 02240 DAMIAN KARTHIKEYAN, REPAIR 9 [facility] CORPORATI K/AX/MADDIE ON T/TRUNK 2.6-7.5CM CLOSURE 8659 PETR HUMPHREYS SKIN&SUBC 9 [facility] UTANEOUS INC INC TISSUE OTHER SITES Encounters Encounter Start End Date Code Location Performer Type Date [facility] PETR - 7 7 [facility]R Saavedra 7 [facility] T OFFICE 19123 [facility] KIMEN 7 7 PHYSICIAN T VISIT S GROUP 15 MINUTES HOSPITAL PETR Saavedra 7 [facility] INC T OFFICE 08892 [facility] T[facility] BARROSPATIEN 7 7 PHYSICIAN T VISIT S GROUP 15 MINUTES HOSPITAL PETR Saavedra 7 [facility] OUTPATIEN INC T OFFICE 89680 [facility] [place] OUTPATIEN 7 7 PHYSICIAN T NEW 45 S GROUP MINUTES EMERGENCY 68126 [facility] SPENDAL 7 7 EMERGENCY DEPARTMEN T VISIT PHYSICIAN HIGH/URGE S NT SEVERITY EMERGENCY [address]7076 ST. 7 7 [facility] DEPARTMEN JOEY T VISIT MODERATE SEVERITY [facility]PITAL ST[facility] - 7 7 [facility] OUTPATIEN JOEY T OFFICE 92546 [facility] OUT[facility] 6 6 LTH T NEW 30 ORTHOPAED MINUTES IC CTR HOSPITAL PETR - 6 6 [facility] OUTPATIEN INC T EMERGENCY 56993 [facility] 6 6 PHYSICIAN DEPARTMEN S, PLLC T VISIT MODERATE SEVERITY HOSPITAL ST - OTHER 6 6 [facility] EMERGENCY 89101 NEW 5 5 [facility] DEPARTMEN MED CTR T VISIT HIGH/URGE NT SEVERITY HOSPITAL NEW - 5 5 [facility] OUTPATIEN MED CTR T OFFICE 52578 [facility] COOMBS OUTPATIEN 5 5 [facility] LAR T VISIT FAMILY 10 PRACTICE MINUTES OFFICE 68838 NEW MALVIN OUTPATIEN 5 5 [facility] LAR T VISIT FAMILY 10 PRACTICE MINUTES PERIODIC 19180 [facility] DIAL V[facility]AY[facility] PREVENTIV 5 5 D FAMILY E MED EST MEDICAL PATIENT CE 18-39 YRS HOSPITAL NEW - 5 5 [facility] OUTPAT[facility] MED CTR T OFFICE 30452 NEW MALVIN OUTPATIEN 5 5 [facility] LAR T VISIT FAMILY 10 PRACTICE MINUTES EMERGENCY 22887 MICHAEL DEL CASTILLOARDON 5 5 EMERGENCY DURGA DEPARTMEN T VISIT PHYSICIAN HIGH/URGE S NT SEVERITY OFFICE 56335 NEW MALVIN OUTPATIEN 5 5 [facility] LAR T VISIT FAMILY 10 PRACTICE MINUTES EMERGENCY 53590 [facility] RICHARDSO 5 5 EMERGENCY N YEISKA DEPARTMEN T VISIT PHYSICIAN HIGH/URGE S NT SEVERITY OFFICE 98730 NEW SMALARA OUTPATIEN 5 5 [facility] BERNICE T VISIT FAMILY 10 PRACTICE MINUTES HOSPITAL NEW - 4 4 [facility] OUT[facility]EN MED CTR T OFFICE 41781 NEW MALVIN OUTPATIEN 4 4 [facility] LAR T VISIT FAMILY 15 PRACTICE MINUTES OFFICE 27196 NEW MARSHAL OUTPATIEN 4 4 H[facility]IZONS MD YESIKA T VISIT FAMILY 15 PRACTICE MINUTES OFFICE 92217 TONNY LANCASTER OUTPATIEN 4 4 [facility] T VISIT [address] CENTER MINUTES OFFICE 42919 NEW SMALARA OUTPATIEN 4 4 [facility] BERNICE T VISIT FAMILY 10 PRACTICE MINUTES HOSPITAL NEW - 4 4 [facility] OUTPAT[facility]EN MED CTR T OFFICE 05075 NEW SMALARA OUTPATIEN 4 4 [facility] BERNICE T VISIT PRIMARY 15 CARE CL MINUTES OFFICE 05413 NEW SMALARA OUTPATIEN 4 4 [facility] BERNICE T VISIT PRIMARY 10 CARE CL MINUTES OFFICE 06129 CARLITOS URBINA OUTPATIEN 4 4 ANASTASIA ANASTAISA T VISIT 10 MINUTES OFFICE 47088 CARLITOS URBINA OUTPATIEN 4 4 ANASTASIA ANASTASIA T VISIT 15 MINUTES OFFICE 74914 DIAL VINAYAK DIAL VINAYAK OUTPATIEN 4 4 T VISIT 15 MINUTES OFFICE 19819 DIAL VINAYAK DIAL VINAYAK OUTPATIEN 4 4 T VISIT 15 MINUTES HOSPITAL [facility]ORT - 4 4 [facility] INPATIENT MEDICAL OFFICE 49000 EVAN EVAN OUTPATIEN 4 4 ANG ANG T VISIT 15 MINUTES OFFICE 84101 WAINWRIGH WAINWRIGH OUTPATIEN 4 4 T MAR T MAR T VISIT 15 MINUTES OFFICE 46350 CUMBERLAN COSTA AMA OUTPATIEN 3 3 D FAMILY T VISIT MEDICAL 15 CE MINUTES OFFICE 72756 AMY LEE OUTPATIEN 3 3 D FAMILY T MAR T VISIT MEDICAL 15 CE MINUTES OFFICE 90195 AMY LEE OUTPATIEN 3 3 D FAMILY T MAR T VISIT MEDICAL 15 CE MINUTES OFFICE 89098 NEW [place] OUTPATIEN 3 3 [facility]IZONS BERNICE T VISIT PRIMARY 15 CARE CL MINUTES OFFICE 11886 AMY LEE OUTPATIEN 3 3 D FAMILY T MAR T VISIT MEDICAL 15 CE MINUTES OFFICE 89477 AMY NELSON OUTPATIEN 3 3 D FAMILY T VISIT MEDICAL 15 CE MINUTES EMERGENCY 20255 NEW 3 3 [facility] DEPARTMEN MED CTR T VISIT LOW/MODER SEVERITY EMERGENCY 81655 ACUTE MALVIN 3 3 [facility] MODERATE SEVERITY HOSPITAL NEW - 3 3 [facility] OUTPATIEN MED CTR T OFFICE 29659 AMY OSHEA OUTPATIEN 3 3 D FAMILY T VISIT MEDICAL 15 CE MINUTES OFFICE 71245 AMY GORDON OUTPATIEN 3 3 D FAMILY ANG T VISIT MEDICAL 15 CE MINUTES OFFICE 26634 AMY NELSON OUTPATIEN 3 3 D FAMILY T NEW 45 MEDICAL MINUTES CE OFFICE [address] ST MERYL II OUTPATIEN 3 3 JOVITA KAYLEEN T VISIT 15 PHYSICIAN MINUTES [facility] ST - 3 3 JOVITA OUTPATIEN MEDICAL T CENTER EMERGENCY 98088 ST JONI 3 3 JOVITA KRI DEPARTMEN MED CTR T VISIT HIGH/URGE NT SEVERITY HOSPITAL ST - 3 3 JOVITA OUTPATIEN MEDICAL T CENTER OFFICE [address] ST MERYL II OUTPATIEN 3 3 JOVIAT BEYER T VISIT 25 PHYSICIAN MINUTES S OFFICE 10186 [place] OUTPATIEN 3 3 [facility]IZ[facility] BERNICE T VISIT PRIMARY 15 CARE CL MINUTES OFFICE 45389 TONNY LANCASTER OUTPATIEN 3 3 [facility] T [address] MINUTES CENTER CENTER OFFICE 91101 [place] OUTPATIEN 2 2 [facility] BERNICE T VISIT PRIMARY 15 CARE CL MINUTES HOSPITAL NEW - 2 2 [facility] OUTPATIEN MED CTR T OFFICE 80250 NEW JESSI OUTPATIEN 2 2 H[facility]IZONS EMMETT T VISIT PRIMARY 25 CARE CL MINUTES OFFICE 02922 NEW JESSI OUTPATIEN 2 2 [facility] EMMETT T VISIT PRIMARY 15 CARE CL MINUTES HOSPITAL NEW - 2 2 [facility] OUTPATIEN MED CTR T EMERGENCY 42453 NEW 2 2 [facility] DEPARTMEN MED CTR T VISIT LOW/MODER SEVERITY OFFICE 40548 FORREST ARAYA OUTPATIEN 2 2 CARMEN MCCORMACK YESIKA T VISIT PRIMARY 15 CARE CL MINUTES HOSPITAL NEW - 2 2 [facility] OUTPATIEN MED CTR T OFFICE 68764 MARSHAL ARAYA OUTPATIEN 2 2 YESIKANelia MCCORMACK YESIKA T VISIT 15 MINUTES OFFICE 68623 FAMILY DEYANIRA OUTPATIEN 1 1 CARE R H T VISIT ASSOCIATE 25 S MINUTES OFFICE 23858 FAMILY MULBERRY OUTPATIEN 1 1 CARE CAROLA T VISIT ASSOCIATE 15 S MINUTES OFFICE 73930 FAMILY DEYANIRA OUTPATIEN 1 1 CARE R H T VISIT ASSOCIATE 15 S MINUTES OFFICE 07502 FAMILY DEYANIRA, OUTPATIEN 0 0 CARE R ALBINO T VISIT ASSOCIATE 15 S MINUTES OFFICE 92867 [facility] 0 0 MIDDLE MIDDLE T VISIT [facility] OFF[facility] 64743 [facility] OUT[facility] 0 0 MIDDLE MIDDLE T VISIT 5 [facility] MIN[facility] OFFICE 53810 FAMILY DEYANIRA, OUTPATIEN 0 0 CARE R ALBINO T VISIT ASSOCIATE 15 S MINUTES OFFICE 35761 [facility] 0 0 MIDDLE MIDDLE T VISIT 5 [facility] OFFICE 27606 [facility] OUTPATIEN 0 0 MIDDLE MIDDLE T VISIT 5 [facility]ES OFFICE 05631 [facility] OUTPATIEN 0 0 MIDDLE MIDDLE T VISIT 5 [facility] OFFICE 12746 [facility] OUTPATIEN 0 0 MIDDLE MIDDLE T VISIT 5 [facility] MINUT[facility] OFFICE 98356 FAMILY DEYANIRA, OUTPATIEN 0 0 CARE R ALBINO T VISIT ASSOCIATE 25 S MINUTES OFFICE 16833 [facility] 0 0 MIDDLE MIDDLE T VISIT 5 [facility] MIN[facility] OFFICE 45468 [facility] OUTPATI[facility] 9 9 MIDDLE MIDDLE T VISIT 5 [facility] MIN[facility]ES OFFICE 36542 [facility] OUTPATI[facility] 9 9 MIDDLE MIDDLE T VISIT 5 [facility] MIN[facility]ES OFFICE 01996 [facility] 9 9 MIDDLE MIDDLE T NEW 10 [facility] MINUTES HOSPITAL PETR - 9 9 [facility] OUTPATIEN INC T EMERGENCY 35167 DAMIAN NAPIER [address] [facility] CORPOR[facility] T VISIT ON LOW/MODER SEVERITY EMERGENCY 59605 PETR 9 9 [facility] DEPARTMEN INC T VISIT MODERATE SEVERITY
--- OUTSIDE RECORDS SUMMARY | 2017-05-18 07:50 | External Medical Summary Rpt | CCD ---
Author Author , JOANN Organization NAJMANITA Address Unknown Phone [email or web address] Providers Care Hand Loom Weaver Name Role Phone [facility] Unavailable [facility], [facility] CORTEZ DURGA, CORTEZ DURGA Unavailable Unavailable CORTEZ DURGA, CORTEZ DURGA Unavailable Unavailable MARSHAL MCCORMACK YESIKA, Unavailable Unavailable MARSHAL ARAYA MD YESIKA, Unavailable Unavailable MARSHAL MCCORMACK YESIKA JONI KRI, Unavailable Unavailable JONI WALDRON BERNJOE DURGA, Unavailable Unavailable BERNJOE DURGA LAKE, LAKE Unavailable Unavailable PELON SUZIE, PELON SUZIE Unavailable Unavailable [facility] Unavailable Unavailable RISK O, [facility] R[facility]K [facility] TOMASZ TOLBERT Unavailable Unavailable [facility] Unavailable Unavailable [facility], [facility] Unavailable Unavailable PHYSICIANS, [facility] Unavailable Unavailable MEDICAL CE, [facility] JAYCEE CLEMENTS Unavailable Unavailable KAYLEEN DIAL VINAYAK, DIAL VINAYAK Unavailable Unavailable DIAL VINAYAK, DIAL VINAYAK Unavailable Unavailable LIZZY RUSSELL, Unavailable Unavailable LIZZY RUSSELL [facility], [facility] Un[facility]available [facility] Unavailable Unavailable ASSOCIATES, [facility] Unavailable Unavailable MEDICAL, [facility] GALEN NAPIER, Unavailable Unavailable GALEN NAPIER [facility] Unavailable Unavailable INC, [facility] COSTA AMA, COSTA AMA Unavailable Unavailable [facility], Unavailable Unavailable [facility] HORN MARIBEL, HORN MARIBEL Unavailable Unavailable JEROME DORIE, JEROME DORIE Unavailable Unavailable JEROME DURGA, JEROME DURGA Unavailable Unavailable MALVIN CHR, MALVIN Unavailable Unavailable CHR MALVIN LAR, MALVIN Unavailable Unavailable LAR [facility] Unavailable Unavailable IMAGING [facility], [facility] Unavailable Unavailable HOLDINGS, [facility], Unavailable [facility]available [facility] Unavailable [facility]available [facility], [facility] Unavailable [facility]available [facility], [facility] CARSON SUZIE, CARSON Unavailable Unavailable SUZIE CRASON SUZIE, CARSON Unavailable Unavailable SUZIE CARSON AUBUCHON MARIA ALEJANDRA, Unavailable Unavailable CARSON [facility] MARIA ALEJANDRA [facility]SON [facility] MARIA ALEJANDRA, Unavailable Unavailable CARSON [facility] MARIA ALEJANDRA MULBERRY CAROLA, Unavailable Unavailable MULBERRY CAROLA [facility] Unavailable Unavailable PRACTICE, [facility], Unavailable Unavailable [facility] Unavailable Unavailable CARE CL, [facility] CARE CL DEYANIRA R H, Unavailable Unavailable DEYANIRA R Ly BOYD, Unavailable Unavailable DEYANIRA R ALBINO ORDMAN STA, ORDMAN Unavailable Unavailable STA ORDMAN STA, ORDMAN Unavailable Unavailable STA [facility] Unavailable Unavailable CENTER, [facility] Unavailable Unavailable CENTER, [facility] Unavailable Unavailable SQUAD, [facility] Unavailable Unavailable SQUAD, [facility] MERYL II KAYLEEN, MERYL Unavailable Unavailable II KAYLEEN BROWN YESIKA, Unavailable Unavailable BROWN EYSIKA SADEK MOH, SADEK MOH Unavailable Unavailable EVAN ANG, EVAN Unavailable Unavailable ANG EVAN ANG, EVAN Unavailable Unavailable ANG [facility], Unavailable Unavailable [facility] SHEWMAKER ASTON, Unavailable Unavailable SHEWMAKER ASTON SMALARA BERNICE, SMALARA Unavailable Unavailable BERNICE SPENDAL, SPENDAL Unavailable Unavailable [facility] Unavailable Unavailable [facility], [facility] Unavailable Unavailable CENTER, [facility] Unavailable Unavailable PHYSICIANS, [facility] Unavailable Unavailable JOEY, [facility] JOEY CHRISTINE, JESSI Unavailable Unavailable EMMETT VERN LIS, Unavailable Unavailable VERN LIS TABELING JR GABE, Unavailable Unavailable TABELING JR GABE [facility] Unavailable Unavailable #5, [facility] Unavailable Unavailable -[facility], [facility] NATIVE MAR, Unavailable Unavailable NATIVE MAR NATIVE MAR, Unavailable Unavailable NATIVE MAR CARLITOS ANASTASIA, Unavailable Unavailable CARLITOS ANASTASIA CARLITOS ANASTASIA, Unavailable Unavailable CRALITOS ANASTASIA Purpose Continuity of Care Document - 08-15-2008 through 2016 Problems Code Diagnosis DOS Provider Status [id number] ENC 04-12-2017 [facility] OTH NORMAL INC PREG UNS TRIMESTER [id number] DECREASED 03-15-2017 [facility] THIRD TRIMESTER NA/UNS Z3A30 30 WEEKS 03-15-2017 [facility]ATION [facility] [id number] OTHER SPEC 01-03-2017 [facility] COND 3RD TRIMESTER Z36 ENCOUNTER 01-03-2017 [facility] FOR [facility] SCREENING OF MOTHER Z3A20 20 WEEKS 01-03-2017 [facility] OF IMAGING ASS X39037 UTERINE 11-23-2016 [facility] SIZE-DATE [facility] DISCREPANCY INC FIRST TRIMESTER Z3492 ENC 11-23-2016 [facility] MEDICAL NORMAL IMAGING ASS UNS 2 TRIMESTER Z3A15 15 WEEKS 11-23-2016 [facility] MEDICAL OF IMAGING ASS E6601 MORBID 11-08-2016 [facility] OBESITY DUE GROUP TO EXCESS CALORIES Z3201 ENCOUNTER 11-08-2016 [facility] GROUP TEST RESULT POSITIVE O209 HEMORRHAGE 10-24-2016 ST. IN EARLY JOVTIA JOEY UNSPECIFIED O210 MILD 10-24-2016 ST. HYPEREMESIS JOVITA GRAVIDARUM JOEY Z3A09 9 WEEKS 10-24-2016 ST. 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 [id number] STRAIN 03-12-2016 [facility] & TENDON [facility]TH[facility] NECK LEVL CTR INIT ENC [id number] STRAIN 03-12-2016 [facility] MUSCLE H FASCIA & ORTHOPAEDIC TENDON LOW CTR BACK INITIAL [id number] SPRAIN OTH 03-08-2016 [facility] LUMBAR INC SPINE & PELVIS INIT ENC Z720 TOBACCO USE 03-08-2016 [facility] F05312 OTHER LONG 02-21-2016 ST TERM JOVITA CURRENT MED CTR PLEATER HAND DRUG ST THERAPY H5203 HYPERMETROP 05-11-2015 CARSON [place] AUBUCHON BILATERAL MARIA ALEJANDRA H5213 MYOPIA 05-11-2015 CORTEZ DURGA BILATERAL 5920 CALCULUS OF 01-04-[address]A KIDNEY 7880 RENAL COLIC 01-03-2015 [facility] 03893 UNSPECIFIED 12-09-2014 NEW INFECTIVE [facility] OTITIS FAMILY EXTERNA PRACTICE 52090 OBESITY, 11-22-2014 NEW UNSPECIFIED [facility] FAMILY PRACTICE 68590 UNSPECIFIED 11-22-2014 [facility] VULVOVAGINI TIS V7231 ROUTINE 11-22-2014 [facility] MEDICAL CE EXAMINATION 462 ACUTE 10-31-2014 NEW PHARYNGITIS [facility] 7862 COUGH 10-31-2014 [facility] 7867 ABNORMAL 10-31-2014 NEW CHEST [facility] SOUNDS MED CTR 13499 ACUTE 10-26-2014 NEW LARYNGITIS, [facility] WITHOUT FAMILY MENTION OF PRACTICE OBSTRUCTIO 4659 ACUTE URIS 10-26-2014 NEW OF [facility] UNSPECIFIED FAMILY SITE PRACTICE 54090 VOMITING 10-16-2014 [facility] 43768 DIARRHEA 10-16-2014 [facility] 30500 NAUSEA WITH 10-02-2014 [facility] 12768 DYSHIDROSIS 08-12-2014 NEW [facility] FAMILY PRACTICE 10475 NAUSEA 06-10-2014 [facility]ONE [facility] PC 29741 ABDOMINAL 06-10-2014 F&[facility] PAIN RIGHT RADIOLOGY UPPER PC QUADRANT 77620 ABDOMINAL 06-10-2014 NEW PAIN OTHER [facility] SPECIFIED MED CTR SITE 5990 URINARY 06-08-2014 NEW TRACT [facility] INFECTION FAMILY SITE NOT PRACTICE SPECIFIED 7048 OTHER 05-06-2014 NEW SPECIFIED [facility] DISEASE OF FAMILY HAIR&HAIR PRACTICE FOLLICLES V2689 OTHER 05-04-2014 [facility] MANA[facility]EMENT V7241 05-04-2014 [facility] OR TEST CENTER NEGATIVE RESULT 1179 OTHER AND 04-02-2014 NEW UNSPECIFIED [facility] MYCOSES FAMILY PRACTICE 18684 OTHER 02-15-2014 NEW MALAISE AND [facility] FATIGUE MED CTR 7831 ABNORMAL 02-15-2014 NEW WEIGHT GAIN [facility] MED [facility] 6989 UNSPECIFIED 02-02-2014 NEW PRURITIC [facility] DISORDER PRIMARY CARE CL 43013 UNSPECIFIED 10-12-2013 NEW SITE OF [facility] ANKLE PRIMARY SPRAIN AND CARE CL STRAIN 95659 MATERNAL 10-06-2013 CARLITOS MENTAL D/O ANASTASIA COND/COMPLI CATION 3670 HYPERMETROP 09-21-2013 CARSON SUZIE [place] 4556 UNSPEC 08-26-2013 DIAL VINAYAK HEMORRHOIDS WITHOUT MENTION COMPLICATIO N 6235 LEUKORRHEA 08-26-2013 DIAL VINAYAK NOT SPECIFIED INFECTIVE V242 ROUTINE 08-26-2013 DIAL VINAYAK FOLLOW-UP V2501 GENERAL 08-26-2013 DIAL VINAYAK COUNSELING PRESCRIPTIO N ORAL CONTRACEPTS 650 NORMAL 08-18-2013 NATIVE DELIVERY MAR V270 OUTCOME OF 08-18-2013 NATIVE DELIVERY MAR SINGLE LIVEBORN 2859 UNSPECIFIED 08-16-2013 [place] [facility] MEDICAL 18694 POST TERM 08-16-2013 [place] PG DELIV REGIONAL W/WO MEDICAL MENTION ANTPRTM COND 90407 MATERNAL 08-16-2013 [facility] WITH MEDICAL DELIVERY 60332 TOBACCO USE 08-16-2013 [place] D/O COMP REGIONAL PG MEDICAL CHILDBIRTH/ PP DELIVERED 37183 SECOND-DEGR 08-16-2013 [place] EE PERINEAL REGIONAL LACERATION MEDICAL WITH DELIVERY 37856 POST TERM 08-14-2013 EVAN ANG ANTEPARTUM COND/COMPLI CATION V220 SUPERVISION 08-11-2013 NATIVE OF NORMAL MAR FIRST 2449 UNSPECIFIED 07-17-2013 NEW [facility] HYPOTHYROID PRIMARY ISM CARE CL 4619 ACUTE 07-17-2013 NEW SINUSITIS, [facility] UNSPECIFIED [place] 91333 OTHER 07-06-2013 ACUTE CARE SPECIFED [facility]ILLING [place] [facility] N ANTEPARTUM V222 07-06-2013 [facility], [facility] INCIDENTAL MED CTR 27635 TOB USE D/O 06-11-2013 [facility] COMP PG [facility] /PP HIGH RISK O ANTEPARTM COND/COMP 91567 OBES COMP 06-11-2013 [facility] PG [place] /THE HIGH RISK O PP ANTEPARTUM COND/COMP 21088 UNS 06-11-2013 [facility] ABNORM MGMT [facility] MOTH HIGH RISK O ANTPRTM COND/COMP V283 ENCOUNTER 06-11-2013 [facility] ROUTINE [facility] SCREEN HIGH RISK O MALFORMATIO N ULTRASONIC 19871 THREATENED 02-12-2013 [facility] , MATERNAL ANTEPARTUM -MED 90332 UNSPEC 02-12-2013 [facility]LY MEDICAL CENTER ANTEPARTUM 80425 OTH SPEC 01-14-2013 [facility] CARE[facility]INTR[facility] PHYSICIANS REL L&D UNS EOC 1330 SCABIES 12-17-2012 [facility] PRIMARY CARE CL V7242 12-16-2012 [facility] OR TEST CENTER POSITIVE RESULT 1101 DERMATOPHYT 04-17-2012 NEW [facility] NAIL PRIMARY CARE CL V5869 LONG-TERM 04-17-2012 NEW (CURRENT) [facility] USE OF MED CTR OTHER MEDICATIONS V5883 ENCOUNTER 04-17-2012 NEW FOR [facility] THERAPEUTIC MED CTR DRUG MONITORING 7881 DYSURIA 01-21-2012 [place] [facility] [place] 33229 HEMATURIA 01-07-2012 NEW UNSPECIFIED [facility] PRIMARY CARE CL 8820 OPEN WOUND 12-07-2011 NEW HAND NO [facility] FINGER MED CTR ALONE W/O MENTION COMP 8821 OPEN WOUND 12-07-2011 [facility] HAND EXCEPT LIFE [facility]QU[facility] FINGER ALONE COMPLICATED 8910 OPEN WOUND 12-07-2011 [facility] KNEE LIFE SQUAD LEG&ANK WITHOUT MENTION COMP 9160 HIP THI 12-07-2011 NEW LEG&ANK [facility] ABRASION/FR MED CTR ICION BURN W/O INF 57902 MORBID 09-17-2011 NEW OBESITY [facility] PRIMARY CARE CL 6264 IRREGULAR 09-01-2011 NEW MENSTRUAL [facility] CYCLE MED CTR 4660 ACUTE 08-31-2011 MARSHAL MCCORMACK BRONCHITIS YESIKA 94544 OVERWEIGHT 03-26-2011 [facility] 460 ACUTE [...] INSECT [employer] NONVENOMOUS W/O INF 66417 UNSPECIFIED 12-07-2009 [facility] AND ABSCESS OF FINGER 7295 PAIN IN 12-07-2009 [facility] SO[facility] MIDDLE TISSUES OF SCHOOL LIMB V8289 SPECIAL 10-24-2009 [facility]CRE[facility] OTHER S[facility] SPECIFIED CONDITIONS 5368 DYSPEPSIA&O 08-25-2009 [facility] THER SPEC MIDDLE DISORDERS SCHOOL FUNCTION STOMACH 7840 HEADACHE 08-25-2009 [facility] 8900 OPEN WOUND 08-15-2008 SALGADO [...] Procedure DOS Code Location Performer Comment PARTICLE 33975 [facility] AGGLUTINA 7 MEM H[facility]OS[facility] TION INC INC SCREEN EACH ANTIBODY 59876 [facility] MEDICAL AL IMAGING PROFILE [place] [address] [facility] 7 MEM HOS[facility] MEM HOSP UTERUS INC INC LIMITED 1/> FETUSES CULTURE 62821 [facility] BACTERIAL 7 MEM HOSP MEM HOS[facility] INC INC QUANTTATI VE COLONY COUNT URINE URNLS DIP 46908 [facility] 7 [facility]OS[facility] MEM HOSP STICK/TAB INC INC LET REAGENT AUTO MICROSCOP Y DOPPLER 40429 [facility] 7 [place]ICAL [place] [address] [facility] INFUSION 7 MEM HOSP MEM HOSP HYDRATION INC INC INITIAL 31 MIN-1 HOUR US PREG 57339 PETR [facility]R UTERUS 7 MEM HOSP MEM HOSP W/DETAIL INC INC SUR[place] 1[place] P[place] 22297 [facility] ALEKSANDRA UTERUS 7 MEDICAL AFTER 1ST IMAGING TRIMEST ASS 1 [place] PREG 52887 [facility] MERCADOON UTERUS 7 MEM HOSP MEM HOSP AFTER 1ST INC INC TRIMEST 1/ [place] [address] [facility] ALEKSANDRA 7 MEDICAL UTERUS IMAGING LIMITED ASS 1/> FETUSES DRUG TEST 30085 [facility] TOLBERT PRSMV 7 PHYSICIAN QUAL DIR S GROUP OPTICAL OBS PER DAY URINE 56977 [facility] TOMASZ 7 PHYSICIAN TEST S GROUP VISUAL COLOR CMPRSN METHS IADNA [address] NEISSERIA 7 J[facility] COOK GONORRHOE AE AMPLIFIED PROBE TQ IADNA [address] CHLAMYDIA 7 [facility] JOEY COOK TRACHOMAT IS AMPLIFIED PROBE TQ RADEX 43848 [facility] SPINE 6 LTH LTH CERVICAL ORTHOPAED ORTHOPAED 2 OR 3 IC CTR IC CTR VIEWS RADEX 97629 [facility] SPINE 6 LTH LTH LUMBOSACR ORTHOPAED ORTHOPAED AL 2/3 IC CTR IC CTR VIEWS THERAPEUT 60802 [facility] IC 6 MEM HOSP MEM HOSP PROPHYLAC INC INC TIC/DX INJECTION SUBQ/IM DRUG TEST G0480 ST ST DEFINITV [address] ID MED CTR MED CTR METH P PLEATER HAND ST PLEATER HAND ST DAY 1-7 DRUG CL DRUG TEST G0479 ST ST 6 [facility] HUSSEIN PRESUMP;I MED CTR MED CTR NSTRUMENT PLEATER HAND ST PLEATER HAND ST ED CHEMISTRY ANLYZER FITTING 99510 HairdressrGER SPECTACLE 5 AUBUCHON AUBUCHON S XCPT Feb APHAKIA MONOFOCAL SPHERE V2100 Tencent DURGA SINGLE 5 VISION PLANO +/- 4.00 PER LENS FRAMES V2020 Tencent DURGA PURCHASES 5 SCRATCH V2760 Tencent DURGA RESISTANT 5 COATING PER LENS LENS V2784 Tencent DURGA POLYCARBO 5 [place] OR EQUAL ANY INDEX PER LENS OPHTH 96799 TABELING TABELING MEDICAL 5 JR GABE JR GABE XM&EVAL COMPRE NEW PT 1/> [place] [address] ORDKIM ORDKIM ABDOMEN & 5 STA STA PELVIS W/CONTRAS T MATERIAL URINALYSI 84799 NEW NEW S 5 [facility] MICROSCOP MED CTR MED CTR IC ONLY GONADOTRO 57084 NEW NEW PIN 5 [facility] CHORIONIC MED CTR MED CTR QUALITATI VE THERAPEUT 20493 NEW NEW IC 5 [facility] INJECTION MED CTR MED CTR IV PUSH EACH NEW DRUG BLOOD 70639 NEW NEW COUNT 5 [facility] COMPLETE MED CTR MED CTR AUTO&AUTO DIFRNTL WBC CULTURE 42417 NEW NEW BACTERIAL 5 [facility]OR[facility]ONS MED CTR MED CTR QUANTTATI VE COLONY COUNT URINE BASIC 23408 NEW NEW METABOLIC 5 [facility] PANEL MED CTR MED CTR CALCIUM TOTAL UNCLASSIF J3490 NEW NEW IED DRUGS 5 [facility] MED CTR MED CTR THER 72800 NEW NEW PROPH/DX 5 [facility] NJX IV MED CTR MED CTR PUSH SINGLE/1S T SBST/DRUG COLLECTIO 10391 NEW NEW N VENOUS 5 [facility] HORIZONS BLOOD MED CTR MED CTR VENIPUNCT URE URNLS DIP 98831 NEW NEW 5 [facility] STICK/TAB MED CTR MED CTR LET RGNT AUTO W/O MICROSCOP Y INJECTION J2405 NEW NEW 5 [facility] HORIZONS ONDANSETR MED CTR MED CTR ON HCL PER 1 MG IADNA NOS 24278 MEDICAL MEDICAL 5 DIAGNOSTI DIAGNOSTI AMPLIFIED C LAB LLC C LAB LLC PROBE TQ EACH ORGANISM IADNA 67268 MEDICAL MEDICAL CHLAMYDIA 5 DIAGNOSTI DIAGNOSTI C LAB LLC C LAB LLC TRACHOMAT IS AMPLIFIED PROBE TQ IADNA 77846 MEDICAL MEDICAL TRICHOMON 5 DIAGNOSTI DIAGNOSTI C LAB LLC C LAB LLC VAGINALIS AMPLIFIED PROBE TECH IADNA 74549 MEDICAL MEDICAL NEISSERIA 5 DIAGNOSTI DIAGNOSTI C LAB LLC C LAB LLC GONORRHOE AE AMPLIFIED PROBE TQ IADNA 35426 MEDICAL MEDICAL JAZMINE 5 DIAGNOSTI DIAGNOSTI SPECIES C LAB LLC C LAB LLC AMPLIFIED PROBE TQ IADNA 70404 MEDICAL MEDICAL GARDNEREL 5 DIAGNOSTI DIAGNOSTI LA C LAB LLC C LAB LLC VAGINALIS AMPLIFIED PROBE TQ THERAPEUT 68740 NEW NEW IC 5 [facility] PROPHYLAC MED CTR MED CTR TIC/[place] INJECTION SUBQ/[place] [address] NEW NEW ABDOMINAL 4 [facility] REAL MED CTR MED CTR TIME W/IMAGE LIMITED URNLS DIP 94111 NEW MALVIN 4 [facility] LAR STICK/TAB FAMILY LET RGNT PRACTICE NON-AUTO W/O MICRSCP URINE 37648 TONNY DONATOEN [address] [place] [address] [place] [address] NEW NEW THYROXINE 4 [facility] TOTAL MED CTR MED CTR COMPREHEN 62563 NEW NEW SIVE 4 [facility] METABOLIC MED CTR MED CTR PANEL BLOOD 71264 NEW NEW COUNT 4 [facility] COMPLETE MED CTR MED CTR AUTO&[place] [address] NEW NEW INSULIN 4 [facility] TOTAL MED CTR MED CTR COLLECTIO 15435 NEW NEW N VENOUS 4 [facility]ONS BLOOD [place] [address] NEW NEW THYROID 4 [facility] H[facility]ONS STIMULATI MED CTR MED CTR NG HORMONE TSH OPHTH 72261 [facility] 4 SUZIE SUZIE XM&EVAL COMPRE NEW PT 1/> [place] [address] LAB MANDY LAB MANDY THYROID 4 [facility] STIMULATI HOLDINGS HOLDINGS NG HORMONE TSH BLOOD 81881 LAB MANDY LAB MANDY COUNT 4 [facility] COMPLETE HOLDINGS HOLDINGS AUTO&AUTO DIFRNTL [facility] 67253 HORN MARIBEL HORN MARIBEL DISCHARGE 4 DAY MANAGEMEN T 30 MIN/< SBSQ 71843 LOCATED WITHIN [facility] 4 T MAR T MAR CARE/DAY 15 MINUTES NEURAXIAL 71169 [facility] JAYCEE LABOR 4 KAYLEEN ANALG/ANE ANESTHESI S PLND ASERVICES VAGINAL DELIVERY VAGINAL 27875 HORN MARIBEL HORN MARIBEL DELIVERY 4 ONLY W/POSTPAR SHANELLE CARE INDUCTION 7301 [facility] 4 REGIONAL REGIONAL ARTIFICIA MEDICAL MEDICAL L RUPTURE MEMBRANES OTHER 7359 [facility] MANUALLY 4 REGIONAL REGIONAL ASSISTED MEDICAL MEDICAL DELIVERY MEDICAL 734 [facility] INDUCTION 4 REGIONAL REGIONAL OF LABOR MEDICAL MEDICAL REPAIR OF 7569 [facility] OTHER 4 REGIONAL REGIONAL CURRENT MEDICAL MEDICAL OBSTETRIC LACERATIO N 53470 [facility] 4 ANG ANG AL PROFILE W/O NON-STRES S TESTING CUL 83114 LAB MANDY LAB MANDY PRSMPTV 3 KAR KAR PTHGNC HOLDINGS HOLDINGS ORGANISM SCRN W/COLONY ESTIMJ CULTURE 87190 LAB MANDY LAB MANDY TYPING 3 KAR KAR NUCLEIC HOLDINGS HOLDINGS ACID PROBE DIR [place]GANSM [place] PREG 03176 [facility] VERN UTERUS 3 [place] LIS W/DETAIL HIGH RISK O SURY 1ST GESTATION URINE 24192 AMY COSTA AMA 3 D FAMILY TEST MEDICAL [place] [address] [facility] PELON SUZIE 3 MATERNAL UTERUS 14 WK -MED TRANSABDL [place] [address] UTERUS 3 [facility] [place] [address] UTERUS 3 [facility] REAL TIME [facility] W/IMAGE CENTER CENTER DCMTN TRANSVAG IADNA [address] GARDNEREL 3 [facility] VAGINALIS CENTER CENTER DIRECT PROBE TQ IADNA [address] CHLAMYDIA 3 [facility] TRACHOMAT CENTER CENTER IS AMPLIFIED PROBE TQ IADNA [address] NEISSERIA 3 [facility] GONORRHOE CENTER CENTER AE AMPLIFIED PROBE TQ IADNA [address] JAZMINE 3 [facility] SPECIES MEDICAL MEDICAL DIRECT CENTER CENTER PROBE TQ IADNA [address] TRICHOMON 3 [facility] VAGINALIS CENTER CENTER DIRECT PROBE TQ URINE 75272 TONNY DONATOEN 3 [facility] VISUAL CENTER CENTER COLOR CMPRSN METHS TRANSFERA 69280 NEW NEW SE 2 [facility] ASPARTATE MED CTR MED CTR AMINO AST SGOT TRANSFERA 04091 NEW NEW SE 2 [facility]IZ[facility] ALANINE MED CTR MED CTR AMINO ALT SGPT COLLECTIO 94784 NEW NEW N VENOUS 2 [facility] BLOOD MED CTR MED CTR VENIPUNCT URE OPHTH 93770 JEROME CALIXTO JEROME DURGA MEDICAL 2 XM&EVAL COMPRE NEW PT 1/> VST FRAMES V2020 VISION SHEWMAKER PURCHASES 2 ONE ASTON LENS V2784 VISION SHEWMAKER POLYCARBO 2 ONE ASTON [place]ALLON OR EQUAL ANY INDEX PER LENS FITTING 05190 VISION SHEWMAKER SPECTACLE 2 ONE ASTON S XCPT APHAKIA MONOFOCAL SPHERE V2100 VISION SHEWMAKER SINGLE 2 ONE ASTON VISION PLANO +/- 4.00 PER LENS DETERMINA 42780 JEROME DURGA JEROME DURGA TION 2 REFRACTIV E STATE GROUND A0425 TONNY LANCASTER MILEAGE [address] [place] [address] PER LIFE LIFE STATUTE SQUAD SQUAD MILE AMB A0427 TONNY LANCASTER SERVICE [address] [place] [address] ALS LIFE LIFE EMERGENCY SQUAD SQUAD TRANSPORT LEVEL 1 GONADOTRO 33772 NEW NEW PIN 2 [facility] FOLLICLE MED CTR MED CTR STIMULATI NG HORMONE COMPREHEN 49160 NEW NEW SIVE 2 [facility] METABOLIC MED CTR MED CTR PANEL LIPID 06518 NEW NEW PANEL 2 [facility] [place] [address] NEW NEW THYROID 2 [facility]IZONS STIMULATI MED CTR MED CTR NG HORMONE TSH GONADOTRO 50509 NEW NEW PIN 2 HOR[facility] HORIZONS LUTEINIZI [place] [address] NEW NEW INSULIN 2 [facility] TOTAL MED CTR MED CTR COLLECTIO 51697 NEW NEW N VENOUS 2 [facility]IZONS BLOOD MED CTR MED CTR VENIPUNCT URE BLOOD 05862 FAMILY FAMILY COUNT 1 CARE 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 AUTO&AUTO S S DIFRNTL WBC DETERMINA 29148 YVONNE RUSSELL, TION 0 LIZZY Aaron REFRACTIV E STATE SPHERE V2100 YVONNE RUSSELL, SINGLE 0 LIZZY Aaron VISION PLANO +/- 4.00 PER LENS FITTING 00994 YVONNE RUSSELL, SPECTACLE 0 LIZZY Aaron S XCPT APHAKIA MONOFOCAL OPHTH 22567 YVONNE RUSSELL, MEDICAL 0 LIZZY M LIZZY M XM&EVAL COMPRHNSV ESTAB PT 1/> FRAMES V2020 YVONNE RUSSELL, PURCHASES 0 LIZZY Aaron SMR PRIM 55901 [facility] [place] [facility] GRAM/GIEM SA STAIN BCT FUNGI/ANASTASIA L CUL BACT 91853 [facility] XCPT [facility] URINE BLOOD/STO OL AEROBIC ISOL CULTURE 19318 [facility] BACTERIAL 0 [place] [facility] ANY SOURCE ANAEROBIC ISO&ID DETERMINA 29601 YVONNE RUSSELL, TION 9 LIZZY Aaron REFRACTIV E STATE FITTING 05593 YVONNE RUSSELL, SPECTACLE 9 LIZZY Aaron S XCPT APHAKIA MONOFOCAL SPHERE V2100 YVONNE RUSSELL, SINGLE 9 LIZZY Aaron VISION PLANO +/- 4.00 PER LENS FRAMES V2020 YVONNE RUSSELL, PURCHASES 9 LIZZY Aaron OPHTH 56717 YVONNE RUSSELL, MEDICAL 9 LIZZY Aaron XM&EVAL COMPRE NEW PT 1/> VST SMPL 89398 DAMIAN KARTHIKEYAN, REPAIR 9 [place] SCALP/NEC CORPORATI K/AX/MADDIE ON T/TRUNK 2.6-7.5CM CLOSURE 8659 [facility]R [facility] SKIN&SUBC 9 [facility] UT[facility] INC TISSUE OTHER SITES Encounters Encounter Start End Date Code [facility] T OFFICE 49090 [facility] KIMEN 7 7 PHYSICIAN T VISIT S GROUP 15 MINUTES [facility]OSPITAL PETR [facility] T OFFICE 30870 [facility] BARROSPATIEN 7 7 PHYSICIAN T VISIT S GROUP 15 MINUTES HOSPITAL PETR [facility] 7 [facility] INC T OFFICE 48940 [facility] [place] OUTPATIEN 7 7 PHYSICIAN T NEW 45 S GROUP MINUTES EMERGENCY 26448 [facility] 7 7 EMERGENCY DEPARTMEN T VISIT PHYSICIAN HIGH/URGE S NT SEVERITY EMERGENCY [address] ST[address] 7 7 [facility] DEPARTMEN JOEY T VISIT MODERATE SEVERITY [facility]PITAL [facility] - 7 7 [facility] OUTPATIEN JOEY T OFFICE 12564 [facility] 6 6 LTH T NEW 30 ORTHOPAED MINUTES IC [facility] PETR - 6 6 [facility] INC T EMERGENCY 37285 [facility] 6 PHYSICIAN DEPARTMEN S, PLLC T VISIT MODERATE SEVERITY HOSPITAL ST - OTHER 6 6 [facility] EMERGENCY [id number] NEW 5 5 [facility] T VISIT HIGH/URGE NT SEVERITY [facility] NEW - 5 [facility] T OFFICE 38552 FORREST COOMBS OUTPATIEN 5 5 [facility] LAR T VISIT FAMILY 10 PRACTICE MINUTES OFFICE 97408 NEW MALVIN OUTPATIEN 5 5 [facility] LAR T VISIT FAMILY 10 PRACTICE MINUTES PERIODIC 62648 [place] DIAL VINAYAK PREVENTIV 5 5 D FAMILY E MED EST MEDICAL PATIENT CE 18-39 YRS HOSPITAL NEW - 5 5 [facility] T OFFICE 02891 NEW MAL[facility] OUTPATIEN 5 5 [facility] LAR T VISIT FAMILY 10 PRACTICE MINUTES EMERGENCY 48913 MICHAEL DEL CASTILLOARDON 5 5 EMERGENCY DURGA DEPARTMEN T VISIT PHYSICIAN HIGH/URGE S NT SEVERITY OFFICE 85863 NEW MALVIN OUTPATIEN 5 5 [facility] LAR T VISIT FAMILY 10 PRACTICE MINUTES EMERGENCY 46207 COMPASS RICHARDSO 5 5 EMERGENCY N YESIKA DEPARTMEN T VISIT PHYSICIAN HIGH/URGE S NT SEVERITY OFFICE 24869 NEW SMALARA OUTPATIEN 5 5 [facility] BERNICE T VISIT FAMILY 10 PRACTICE MINUTES HOSPITAL NEW - 4 4 [facility] T OFFICE 11725 NEW MALVIN OUTPATIEN 4 4 [facility] LAR T VISIT FAMILY 15 PRACTICE MINUTES OFFICE 78051 NEW MARSHAL OUTPATIEN 4 4 [facility] MD YESIKA T VISIT FAMILY 15 PRACTICE MINUTES OFFICE 84100 T[place]NY LANCASTER OUTPATIEN 4 4 [facility] T VISIT [address] CENTER MINUTES OFFICE 08923 NEW SMALARA OUTPATIEN 4 4 [facility] BERNICE T VISIT FAMILY 10 PRACTICE MINUTES [facility]OSPITAL NEW - 4 [facility] T OFFICE 41036 NEW SMALARA OUTPATIEN 4 4 [facility] B[facility] T VISIT PRIMARY 15 CARE CL MINUTES OFFICE 71493 NEW SMALARA OUTPATIEN 4 4 [facility] BERNICE T VISIT PRIMARY 10 CARE CL MINUTES OFFICE 58965 CARLITOS URBINA OUTPATIEN 4 4 ANASTASIA ANASTASIA T VISIT 10 MINUTES OFFICE 26734 CARLITOS URBINA OUTPATIEN 4 4 ANASTASIA ANASTASIA T VISIT 15 MINUTES OFFICE 67643 DIAL VINAYAK DIAL VINAYAK OUTPATIEN 4 4 T VISIT 15 MINUTES OFFICE 62036 DIAL VINAYAK DIAL VINAYAK OUTPATIEN 4 4 T VISIT 15 MINUTES HOSPITAL [facility]ORT - 4 4 [facility] INPATIENT MEDICAL OFFICE 17481 EVAN EVAN OUTPATIEN 4 4 ANG ANG T VISIT 15 MINUTES OFFICE 94297 [facility] WAINWRIGH OUTPATIEN 4 4 T MAR T MAR T VISIT 15 MINUTES OFFICE 88619 CUMBERLAN COSTA AMA OUTPATIEN 3 3 D FAMILY T VISIT MEDICAL 15 CE MINUTES OFFICE 88035 AMY LEE OUTPATIEN 3 3 D FAMILY T MAR T VISIT MEDICAL 15 CE MINUTES OFFICE 95094 AMY LEE OUTPATIEN 3 3 D FAMILY T MAR T VISIT MEDICAL 15 CE MINUTES OFFICE 04018 NEW [place]OU OUTPATIEN 3 3 [facility] BERNICE T VISIT PRIMARY 15 CARE CL MINUTES OFFICE 07471 AMY LEE OUTPATIEN 3 3 D FAMILY T MAR T VISIT MEDICAL 15 CE MINUTES OFFICE 21845 AMY NELSON OUTPATIEN 3 3 D FAMILY T VISIT MEDICAL 15 CE MINUTES EMERGENCY 12885 NEW 3 3 [facility] T VISIT LOW/MODER SEVERITY EMERGENCY 75752 ACUTE MALVIN 3 3 [facility] MODERATE SEVERITY [facility] NEW - 3 3 [facility] T OFFICE 35654 AYM OSHEA OUTPATIEN 3 3 D FAMILY T VISIT MEDICAL 15 CE MINUTES OFFICE 14809 AMY GORDON OUTPATIEN 3 3 D FAMILY ANG T VISIT MEDICAL 15 CE MINUTES OFFICE 04318 AMY NELSON OUTPATIEN 3 3 D FAMILY T NEW 45 MEDICAL MINUTES CE OFFICE 649[address] ST MERYL II OUTPATIEN 3 3 JOVITA KAYLEEN T VISIT 15 PHYSICIAN MINUTES [facility] - 3 3 [facility] EMERGENCY [address] ST JONI 3 3 [facility] KRI DEPARTMEN MED CTR T VISIT HIGH/URGE NT SEVERITY [facility] ST - 3 3 [facility] OFFICE [address] ST MERYL II OUTPATIEN 3 3 JOVITA BEYER T VISIT 25 PHYSICIAN MINUTES S OFFICE 82520 [place] OUTPATIEN 3 3 [facility] BERN[facility] T VISIT PRIMARY 15 CARE CL MINUTES OFFICE 73978 [facility] LANCASTER OUTPATIEN 3 3 [facility] T [address] MINUTES CENTER CENTER OFFICE 43118 [place] OUTPATIEN 2 2 [facility] BERN[facility] T VISIT PRIMARY 15 CARE CL MINUTES HOSPITAL NEW - 2 2 [facility] T OFFICE 47977 NEW JESSI OUTPATIEN 2 2 [facility] EMMETT T VISIT PRIMARY 25 CARE CL MINUTES OFFICE 58030 NEW JESSI OUTPATIEN 2 2 [facility] EMMETT T VISIT PRIMARY 15 CARE CL MINUTES HOSPITAL NEW - 2 2 [facility] T EMERGENCY 26275 NEW 2 2 [facility] T VISIT LOW/MODER SEVERITY OFFICE 56373 FORREST ARAYA OUTPATIEN 2 2 CARMEN MCCORMACK YESIKA T VISIT PRIMARY 15 CARE CL MINUTES HOSPITAL NEW - 2 2 [facility] T OFFICE 44557 MARSHAL ARAYA OUTPATIEN 2 2 YESIKANelia MCCORMACK YESIKA T VISIT 15 MINUTES OFFICE 20078 FAMILY DEYANIRA OUTPATIEN 1 1 CARE R H T VISIT ASSOCIATE 25 S MINUTES OFFICE 42759 FAMILY MULBERRY OUTPATIEN 1 1 CARE CAROLA T VISIT ASSOCIATE 15 S MINUTES OFFICE 37313 FAMILY DEYANIRA OUTPATIEN 1 1 CARE R H T VISIT ASSOCIATE 15 S MINUTES OFFICE 31000 FAMILY DEYANIRA, OUTPATIEN 0 0 CARE R ALBINO T VISIT ASSOCIATE 15 S MINUTES OFFICE 04079 [facility] 0 [facility] T [facility] 54139 [facility] 0 0 [facility] V[facility] MIN[facility] OFFICE 19025 FAMILY DEYANIRA, OUTPATIEN 0 0 CARE R ALBINO T VISIT ASSOCIATE 15 S MINUTES OFFICE 72205 [facility] 0 0 [facility]LE [facility] T VISIT [facility] OFFICE 91778 [facility] 0 0 [facility]LE MIDDLE T VISIT [facility]ES OFFICE 24887 [facility] 0 0 [facility]LE MID[facility]LE T VISIT [facility]ES OFFICE 34271 [facility] OUTPATI[facility] 0 0 MIDDLE MIDDLE T VISIT 5 [facility] MINUT[facility] OFFICE 77052 FAMILY EDYANIRA, OUTPATIEN 0 0 CARE R ALBINO T VISIT ASSOCIATE 25 S MINUTES OFFICE 89010 [facility] 0 0 [facility]DLE MID[facility] T VISIT 5 [facility] OFFICE 13696 [facility] OUT[facility] 9 9 [facility]LE [facility]LE T VISIT 5 [facility]ES OFFICE 17600 [facility] 9 9 [facility] T VISIT 5 [facility]ES OFFICE 87777 [facility] 9 9 [facility] T NEW 10 [facility] MINUTES [facility] - 9 9 [facility] T EMERGENCY 31126 DAMIAN NAPIER 9 9 [facility] T VISIT ON LOW/MODER SEVERITY EMERGENCY 09588 PETR 9 9 [facility] DEPARTMEN INC T VISIT MODERATE SEVERITY
--- OUTSIDE RECORDS SUMMARY | 2017-05-18 07:54 | External Medical Summary Rpt | CCD ---
Author Author , NAJMANITA Organization JOANN Address Unknown Phone Care Team Providers Care Government Program Manager Name Role Phone [facility] Un[facility] Unavailable [facility], [facility] CORTEZ DURGA, CORTEZ DURGA Unavailable Unavailable CORTEZ DURGA, CORTEZ DURGA Unavailable Unavailable MARSHAL MCCORMACK YESIKA, Unavailable Unavailable MARSHAL MCCORMACK YESIKA MARSHAL MCCORMACK YESIKA, Unavailable Unavailable MARSHAL MCCORMACK YESIKA JONI KRI, Unavailable Unavailable JONI KRI BERNJOE DURGA, Unavailable Unavailable BERNARDON DURGA LAKE, LAKE Unavailable Unavailable PELON SUZIE, PELON SUZIE Unavailable Unavailable [facility] Unavailable Unavailable RISK O, [facility] RISK O TOMASZ TOLBERT [facility]available Unavailable [facility]available [facility] Unavailable Unavailable PHYSICIANS, [facility] Unavailable Unavailable MEDICAL CE, [facility] JAYCEE CLEMENTS Unavailable Unavailable KAYLEEN DIAL VINAYAK, DIAL VINAYAK Unavailable Unavailable DIAL VINAYAK, DIAL VINAYAK Unavailable Unavailable LIZZY RUSSELL, Unavailable Unavailable LIZZY RUSSELL [facility], [facility] Un[facility] Unavailable Unavailable ASSOCIATES, [facility] Unavailable Unavailable MEDICAL, [facility] GALEN NAPIER, Unavailable Unavailable [facility] Un[facility], [facility] COSTA AMA, COSTA AMA Unavailable Unavailable [facility], Unavailable Unavailable [facility] HORN MARIBEL, HORN MARIBEL Unavailable Unavailable JEROME DORIE, JEROME DORIE Unavailable Unavailable JEROME DURGA, JEROME DURGA Unavailable Unavailable MALVIN CHR, MALVIN Unavailable Unavailable CHR MALVIN LAR, MALVIN Unavailable Unavailable [facility], [facility] Unavailable Unavailable HOLDINGS, [facility], Unavailable Unavailable [facility] Unavailable [facility]available [facility], [facility] Unavailable [facility]available [facility], [facility] CARSON SUZIE, CARSON Unavailable Unavailable SUZIE CARSON SUZIE, CARSON Unavailable Unavailable SUZIE CARSON AUBUCHON MARIA ALEJANDRA, Unavailable Unavailable CARSON AUBUCHON MARIA ALEJANDRA CARSON AUBUCHON MARIA ALEJANDRA, Unavailable Unavailable CARSON LOPEZCHON MARIA ALEJANDRA MULBERRY CAROLA, Unavailable Unavailable MULBERRY CAROLA [facility] Unavailable Unavailable PRACTICE, [facility], Unavailable Unavailable [facility] Unavailable Unavailable CARE CL, [facility] DEYANIRA R H, Unavailable Unavailable DEYANIRA R Ly BOYD, Unavailable Unavailable DEYANIRA R ALBINO ORDMAN STA, ORDMAN Unavailable Unavailable STA ORDMAN STA, ORDMAN Unavailable Unavailable STA [facility] Unavailable Unavailable CENTER, [facility] Unavailable Unavailable CENTER, [facility] Unavailable Unavailable SQUAD, [facility] Unavailable Unavailable SQUAD, [facility] MERYL II KAYLEEN, MERYL Unavailable Unavailable II KAYLEEN BROWN YESIKA, Unavailable Unavailable BROWN YESIKA SADEK MOH, SADEK MOH Unavailable Unavailable EVAN ANG, EVAN Unavailable Unavailable ANG EVAN ANG, EVAN Unavailable Unavailable ANG [facility], Unavailable Unavailable [facility] SHEWMAKER ASTON, Unavailable Unavailable SHEWMAKER ASTON SMALARA BERNICE, SMALARA Unavailable Unavailable BERNICE SPENDAL, SPENDAL Unavailable Unavailable [facility] Unavailable Unavailable [facility], [facility] Unavailable Unavailable [place] Unavailable Unavailable PHYSICIANS, [facility] PHYSICIANS [facility] Unavailable Unavailable JOEY, [facility] CHRISTINE, JESSI Unavailable Unavailable EMMETT VERN LIS, Unavailable Unavailable VERN LIS TABELING JR GABE, Unavailable Unavailable TABELING JR GABE [facility] Unavailable Unavailable #5, [facility] Unavailable Unavailable -[facility], [facility] SELAWIK MAR, Unavailable Unavailable SELAWIK MAR SELAWIK MAR, Unavailable Unavailable SELAWIK MAR CARLITOS ANASTASIA, Unavailable Unavailable CARLITOS ANASTASIA CARLITOS ANASTASIA, Unavailable Unavailable CARLITOS ANASTASIA JR SUZIE GRAHAM, Unavailable Unavailable JR SUZIE GRAHAM Purpose Continuity of Care Document - 08-15-2008 through 2016 Problems Code Diagnosis DOS Provider Status Z3480 ENC 04-12-2017 [facility] NORMAL INC PREG UNS TRIMESTER [id number] DECREASED 03-15-2017 [facility] THIRD TRIMESTER NA/UNS Z3A30 30 WEEKS 03-15-2017 [facility]ATION [facility] OF INC [id number] OTHER SPEC 01-03-2017 [facility] COND 3RD TRIMESTER Z36 ENCOUNTER 01-03-2017 [facility] FOR [facility] SCREENING OF MOTHER Z3A20 20 WEEKS 01-03-2017 [facility]ICAL OF IMAGING ASS U19821 UTERINE 11-23-2016 [facility] SIZE-DATE [facility] DISCREPANCY INC FIRST TRIMESTER Z3492 ENC 11-23-2016 [facility] MEDICAL NORMAL IMAGING ASS UNS 2 TRIMESTER Z3A15 15 WEEKS 11-23-2016 [facility] GEST[facility]ICAL OF IMAGING ASS E6601 MORBID 11-08-2016 [facility] OBESITY DUE GROUP TO EXCESS CALORIES Z3201 ENCOUNTER 11-08-2016 [facility] TEST RESULT POSITIVE O209 HEMORRHAGE 10-24-2016 ST. IN EARLY JOVITA JOEY UNSPECIFIED O210 MILD 10-24-2016 ST. HYPEREMESIS JOVITA GRAVIDARUM JOEY Z3A09 9 WEEKS 10-24-2016 ST. GESTATION JOVITA OF JOEY T51587 PERSONAL 10-24-2016 ST. HISTORY OF [facility] NICOTINE JOEY DEPENDENCE [id number] STRAIN 03-12-2016 [facility] & TENDON [facility] NECK LEVL CTR INIT ENC [id number] STRAIN 03-12-2016 [facility] MUSCLE H FASCIA & ORTHOPAEDIC TENDON LOW CTR BACK INITIAL [id number] SPRAIN OTH 03-08-2016 [facility] LUMBAR INC SPINE & PELVIS INIT ENC Z720 TOBACCO USE 03-08-2016 [facility] H77392 OTHER LONG 02-21-2016 ST TERM [facility] CURRENT MED CTR DIORAMIST DRUG ST THERAPY H5203 HYPERMETROP 05-11-2015 CARSON IA AUBUCHON BILATERAL MARIA ALEJANDRA H5213 MYOPIA 05-11-2015 CORTEZ DURGA BILATERAL 5920 CALCULUS OF 01-04-[address] ORDMAN STA KIDNEY 7880 RENAL COLIC 01-03-2015 [facility] 95774 UNSPECIFIED 12-09-2014 NEW INFECTIVE [facility] OTITIS FAMILY EXTERNA PRACTICE 65814 OBESITY, 11-22-2014 NEW UNSPECIFIED [facility] FAMILY PRACTICE 14972 UNSPECIFIED 11-22-2014 [facility] VULVOVAGINI TIS V7231 ROUTINE 11-22-2014 [facility] AL MEDICAL CE EXAMINATION 462 ACUTE 10-31-2014 NEW PHARYNGITIS [facility] MED CTR 7862 COUGH 10-31-2014 NEW [facility] MED [facility] 7867 ABNORMAL 10-31-2014 NEW CHEST [facility] SOUNDS MED CTR 50103 ACUTE 10-26-2014 NEW LARYNGITIS, [facility] WITHOUT FAMILY MENTION OF PRACTICE OBSTRUCTIO 4659 ACUTE URIS 10-26-2014 NEW OF [facility] UNSPECIFIED FAMILY SITE PRACTICE 68537 VOMITING 10-16-2014 [facility] 43678 DIARRHEA 10-16-2014 [facility] 40455 NAUSEA WITH 10-02-2014 [facility] 84031 DYSHIDROSIS 08-12-2014 NEW [facility] FAMILY PRACTICE 61815 NAUSEA 06-10-2014 [facility] PC 81389 ABDOMINAL 06-10-2014 F&[facility] PAIN RIGHT RADIOLOGY UPPER PC QUADRANT 01439 ABDOMINAL 06-10-2014 NEW PAIN OTHER [facility] SPECIFIED MED CTR SITE 5990 URINARY 06-08-2014 NEW TRACT [facility] INFECTION FAMILY SITE NOT PRACTICE SPECIFIED 7048 OTHER 05-06-2014 NEW SPECIFIED [facility] DISEASE OF FAMILY HAIR&HAIR PRACTICE FOLLICLES V2689 OTHER 05-04-2014 [facility] MANAGEMENT V7241 05-04-2014 [facility] OR TEST CENTER NEGATIVE RESULT 1179 OTHER AND 04-02-2014 NEW UNSPECIFIED [facility] MYCOSES FAMILY PRACTICE 11540 OTHER 02-15-2014 NEW MALAISE AND [facility] FATIGUE MED CTR 7831 ABNORMAL 02-15-2014 NEW WEIGHT GAIN [facility] MED CTR 6989 UNSPECIFIED 02-02-2014 NEW PRURITIC [facility] [place] 80273 UNSPECIFIED 10-12-2013 NEW SITE OF [facility] ANKLE PRIMARY SPRAIN AND CARE CL STRAIN 01702 MATERNAL 10-06-2013 CARLITOS MENTAL D/O ANASTASIA COND/COMPLI CATION 3670 HYPERMETROP 09-21-2013 CARSON SUZIE [place] 4556 UNSPEC 08-26-2013 DIAL VINAYAK HEMORRHOIDS WITHOUT MENTION COMPLICATIO N 6235 LEUKORRHEA 08-26-2013 DIAL VINAYAK NOT SPECIFIED INFECTIVE V242 ROUTINE 08-26-2013 DIAL V[facility]AYAK FOLLOW-UP V2501 GENERAL 08-26-2013 DIAL VINAYAK COUNSELING PRESCRIPTIO N ORAL CONTRACEPTS 650 NORMAL 08-18-2013 [facility] DELIVERY MAR V270 OUTCOME OF 08-18-2013 [facility] DELIVERY MAR SINGLE LIVEBORN 2859 UNSPECIFIED 08-16-2013 [place] MEDICAL 87997 POST TERM 08-16-2013 [place] PG DELIV REGIONAL W/WO MEDICAL MENTION ANTPRTM COND 59403 MATERNAL 08-16-2013 [place] [facility], REGIONAL WITH MEDICAL DELIVERY 82255 TOBACCO USE 08-16-2013 [place] D/O COMP REGIONAL PG MEDICAL CHILDBIRTH/ PP DELIVERED 71419 SECOND-DEGR 08-16-2013 [place] EE PERINEAL REGIONAL LACERATION MEDICAL WITH DELIVERY 41815 POST TERM 08-14-2013 EVAN ANG ANTEPARTUM COND/COMPLI CATION V220 SUPERVISION 08-11-2013 [place] OF NORMAL MAR FIRST 2449 UNSPECIFIED 07-17-2013 [facility] HYPOTHYROID PRIMARY ISM CARE CL 4619 ACUTE 07-17-2013 NEW SINUSITIS, [facility] UNSPECIFIED PRIMARY CARE CL 40050 OTHER 07-06-2013 ACUTE CARE SPECIFED [facility]ILLING [place] [facility] N ANTEPARTUM V222 07-06-2013 [facility] INCIDENTAL MED CTR 21765 TOB USE D/O 06-11-2013 [facility] COMP PG [place] /PP HIGH RISK O ANTEPARTM COND/COMP 88983 OBES COMP 06-11-2013 [facility] PG [place] /THE HIGH RISK O PP ANTEPARTUM COND/COMP 59835 UNS 06-11-2013 [facility] ABNORM MGMT [place] MOTH HIGH RISK O ANTPRTM COND/COMP V283 ENCOUNTER 06-11-2013 [facility] ROUTINE [place] SCREEN HIGH RISK O MALFORMATIO N ULTRASONIC 42243 THREATENED 02-12-2013 [facility] , MATERNAL ANTEPARTUM -MED 31915 UNSPEC 02-12-2013 [facility] MEDICAL CENTER ANTEPARTUM 68450 OTH SPEC 01-14-2013 [facility] CARE/INTRVN PHYSICIANS REL L&D UNS EOC 1330 SCABIES 12-17-2012 [facility] PRIMARY CARE CL V7242 12-16-2012 [facility] OR TEST CENTER POSITIVE RESULT 1101 DERMATOPHYT 04-17-2012 [facility] NAIL PRIMARY CARE CL V5869 LONG-TERM 04-17-2012 NEW (CURRENT) [facility] USE OF MED CTR OTHER MEDICATIONS V5883 ENCOUNTER 04-17-2012 [facility] THERAPEUTIC MED CTR DRUG MONITORING 7881 DYSURIA 01-21-2012 [facility] PRIMARY CARE CL 47655 HEMATURIA 01-07-2012 NEW UNSPECIFIED [facility] PRIMARY CARE CL 8820 OPEN WOUND 12-07-2011 NEW HAND NO [facility] FINGER MED CTR ALONE W/O MENTION COMP 8821 OPEN WOUND 12-07-2011 [facility] HAND EXCEPT LIFE SQUAD FINGER ALONE COMPLICATED 8910 OPEN WOUND 12-07-2011 [facility] KNEE LIFE SQUAD LEG&ANK WITHOUT MENTION COMP 9160 HIP THI 12-07-2011 NEW LEG&ANK [facility] ABRASION/FR MED CTR ICION BURN W/O INF 96898 MORBID 09-17-2011 NEW OBESITY [facility] PRIMARY CARE CL 6264 IRREGULAR 09-01-2011 NEW MENSTRUAL [facility] CYCLE MED CTR 4660 ACUTE 08-31-2011 MARSHAL MCCORMACK BRONCHITIS YESIKA 04965 OVERWEIGHT 03-26-2011 [facility] 460 ACUTE [...] INSECT [employer] NONVENOMOUS W/O INF 68239 UNSPECIFIED 12-07-2009 [facility] ABSCESS OF FINGER 7295 PAIN IN 12-07-2009 [facility]LE [employer]IS[employer] [facility] S[employer]OL LIMB V8289 SPECIAL 10-24-2009 [facility] SPECIFIED CONDITIONS 5368 DYSPEPSIA&O 08-25-2009 [facility] THER SPEC [employer]DLE DISORDERS SCHOOL FUNCTION STOMACH 7840 HEADACHE 08-25-2009 [facility] 8900 OPEN WOUND 08-15-2008 [facility] HIP&THIGH NATIONAL WITHOUT CORPORATION MENTION COMP 9596 INJURY 08-15-2008 [place] OTHER AND NATIONAL UNSPECIFIED CORPORATION HIP AND THIGH Medications Na ND Rx Da Fi Fi [...] HE AR NR MA Y CY #5 Procedures Procedure DOS Code Location Performer Comment PARTICLE 92167 [facility] AGGLUTINA 7 [facility] TION INC INC SCREEN EACH ANTIBODY DOPPLER 90300 [facility] [place] VELOCIMET 7 MEDICAL RY IMAGING UMBILICAL ASS ARTERY CULTURE 16026 [facility] BACTERIAL 7 [facility]OS[facility] INC [place] [address] [facility] 7 [facility]OS[facility] UTERUS INC INC LIMITED 1/> FETUSES URNLS DIP 29199 [facility] 7 [facility]OS[facility] STICK/TAB INC INC LET REAGENT AUTO MICROSCOP Y 57270 [facility] 7 MEDICAL AL IMAGING PROFILE ASS W/[place] [address] [facility] INFUSION 7 [facility]OS[facility]OS[facility] HYDRATION INC INC INITIAL 31 MIN-1 HOUR US PREG 67225 [facility] UTERUS 7 [facility] HOS[facility] HOS[facility] W/DETAIL INC INC SURY 1ST [place]ST[place] PREG 86695 [facility] [place] UTERUS 7 MEDICAL AFTER 1ST IMAGING TRIMEST ASS 1/ [place] 41741 [facility] UTERUS 7 [facility] HOS[facility]OS[facility] AFTER 1ST INC INC TRIMEST 1/ [place] [address] [facility] [place] 7 MEDICAL UTERUS IMAGING LIMITED ASS 1/> FETUSES URINE 59813 [facility] TOM[facility]Z 7 PHYSICIAN TEST S GROUP VISUAL COLOR CMPRSN METHS DRUG TEST 57064 [facility] T[facility] PRSMV 7 PHYSICIAN QUAL DIR S GROUP OPTICAL OBS PER DAY IADNA [address] CHLAMYDIA 7 [place] [facility] TRACHOMAT IS AMPLIFIED PROBE TQ IADNA [address] NEISSERIA 7 JOVITA [facility]ITA [facility] GONORRHOE AE AMPLIFIED PROBE TQ RADEX 47694 [facility] SPINE 6 LTH LTH LUMBOSACR ORTHOPAED ORTHOPAED AL 2/3 IC CTR IC CTR VIEWS RADEX 30987 [facility] SPINE 6 LTH LTH CERVICAL ORTHOPAED ORTHOPAED 2 OR 3 IC CTR IC CTR VIEWS THERAPEUT 01502 [facility] IC 6 MEM HOS[facility] HOS[facility] PROPHYLAC INC INC TIC/DX INJECTION SUBQ/IM DRUG TEST G0479 ST ST 6 JOVITA HUSSEIN PRESUMP;I MED CTR MED CTR NSTRUMENT DIORAMIST ST DIORAMIST ST ED CHEMISTRY ANLYZER DRUG TEST G0480 [address] DEFINITV [address] ID MED CTR MED CTR METH P DIORAMIST ST DIORAMIST ST DAY 1-7 DRUG CL FRAMES V2020 Restorando DURGA CORTEZ DURGA PURCHASES 5 SCRATCH V2760 Restorando DURGA CORTEZ DURGA RESISTANT 5 COATING PER LENS SPHERE V2100 Restorando DURGA CORTEZ DURGA SINGLE 5 VISION PLANO +/- 4.00 PER LENS FITTING 03171 SurplexZGER SPECTACLE 5 AUBUCHON AUBUCHON S XCPT Feb APHAKIA MONOFOCAL LENS V2784 [employer] DURGA POLYCARBO 5 [place] OR EQUAL ANY INDEX PER LENS OPHTH 97738 TABELING TABELING MEDICAL 5 JR GABE JR GABE XM&EVAL COMPRE NEW PT 1/> [place] [address] ORDMAN ORDMAN ABDOMEN & 5 STA STA PELVIS W/CONTRAS T MATERIAL THER 00784 NEW NEW PROPH/DX 5 [facility] NJX IV MED CTR MED CTR PUSH SINGLE/1S T SBST/DRUG BASIC 11701 NEW NEW METABOLIC 5 [facility] PANEL MED CTR MED CTR CALCIUM TOTAL COLLECTIO 38461 NEW NEW N VENOUS 5 [facility]ORIZONS BLOOD MED CTR MED CTR VENIPUNCT URE THERAPEUT 57755 NEW NEW IC 5 [facility]IZONS INJECTION MED CTR MED CTR IV PUSH EACH NEW DRUG BLOOD 85979 NEW NEW COUNT 5 [facility] COMPLETE MED CTR MED CTR AUTO&AUTO DIFRNTL WBC URINALYSI 07659 NEW NEW S 5 [facility]IZONS MICROSCOP MED CTR MED CTR IC ONLY GONADOTRO 31352 NEW NEW PIN 5 [facility] CHORIONIC MED CTR MED CTR QUALITATI VE INJECTION J2405 NEW NEW 5 [facility] HORIZONS ONDANSETR MED CTR MED CTR ON HCL PER 1 MG UNCLASSIF J3490 NEW NEW IED DRUGS 5 [facility]OR[facility]ONS MED CTR MED CTR CULTURE 71279 NEW NEW BACTERIAL 5 [facility]ORIZONS MED CTR MED CTR QUANTTATI VE COLONY COUNT URINE URNLS DIP 76626 NEW NEW 5 [facility] STICK/TAB MED CTR MED CTR LET RGNT AUTO W/O MICROSCOP Y IADNA 41644 MEDICAL MEDICAL CHLAMYDIA 5 DIAGNOSTI DIAGNOSTI C LAB LLC C LAB LLC TRACHOMAT IS AMPLIFIED PROBE TQ IADNA NOS 64152 MEDICAL MEDICAL 5 DIAGNOSTI DIAGNOSTI AMPLIFIED C LAB [facility] C LAB [facility] PROBE TQ EACH ORGANISM IADNA 88533 MEDICAL MEDICAL JAZMINE 5 DIAGNOSTI DIAGNOSTI SPECIES C LAB LLC C LAB LLC AMPLIFIED PROBE TQ IADNA 28042 MEDICAL MEDICAL GARDNEREL 5 DIAGNOSTI DIAGNOSTI LA C LAB LLC C LAB LLC VAGINALIS AMPLIFIED PROBE TQ IADNA 11485 MEDICAL MEDICAL NEISSERIA 5 DIAGNOSTI DIAGNOSTI C LAB LLC C LAB LLC GONORRHOE AE AMPLIFIED PROBE TQ IADNA 49219 MEDICAL MEDICAL TRICHOMON 5 DIAGNOSTI DIAGNOSTI C [facility] C [facility] VAGINALIS AMPLIFIED PROBE TECH THERAPEUT 92855 NEW NEW IC 5 [facility] H[facility]ONS PROPHYLAC MED CTR MED CTR TIC/DX INJECTION SUBQ/[place] [address] F&S GRAHAM, ABDOMINAL 4 RADIOLOGY [facility] REAL PC TIME W/IMAGE LIMITED URNLS DIP 03818 NEW MALVIN 4 [facility] LAR STICK/TAB FAMILY LET RGNT PRACTICE NON-AUTO W/O MICRSCP URINE 91052 TONNY DONATOEN [address] [place] [address] [place] [address] NEW NEW THYROXINE 4 [facility] TOTAL MED CTR MED CTR BLOOD 92121 NEW NEW COUNT 4 [facility] COMPLETE MED CTR MED CTR AUTO&[place] [address] NEW NEW INSULIN 4 [facility]IZONS [place] [address] NEW NEW THYROID 4 HORIZONS HORIZONS STIMULATI MED CTR MED CTR NG HORMONE TSH COMPREHEN 40685 NEW NEW SIVE 4 [facility] METABOLIC MED CTR MED CTR PANEL COLLECTIO 44899 NEW NEW N VENOUS 4 HORIZONS HORIZONS BLOOD MED CTR MED CTR VENIPUNCT URE OPHTH 57088 [facility] 4 SUZIE SUZIE XM&EVAL COMPRE NEW PT 1/> [place] [address] LAB MANDY LAB MANDY THYROID 4 [facility] STIMULATI HOLDINGS HOLDINGS NG HORMONE TSH BLOOD 14204 LAB MANDY LAB MANDY COUNT 4 [facility] COMPLETE HOLDINGS HOLDINGS AUTO&AUTO DIFRNTL [facility] 03349 HORN MARIBEL HORN MARIBEL DISCHARGE 4 DAY MANAGEMEN T 30 MIN/< SBSQ [address] [facility] 4 T MAR T MAR CARE/DAY 15 MINUTES VAGINAL 39834 HORN MARIBEL HORN MARIBEL DELIVERY 4 ONLY W/POSTPAR SHANELLE CARE NEURAXIAL 30369 [facility] JAYCEE LABOR 4 KAYLEEN ANALG/ANE ANESTHESI S PLND ASERVICES VAGINAL DELIVERY INDUCTION 7301 [facility] LABOR 4 REGIONAL REGIONAL ARTIFICIA MEDICAL MEDICAL L RUPTURE MEMBRANES MEDICAL 734 [facility] [facility] INDUCTION 4 REGIONAL REGIONAL OF LABOR MEDICAL MEDICAL REPAIR OF 7569 [facility] [facility] OTHER 4 REGIONAL REGIONAL CURRENT MEDICAL MEDICAL OBSTETRIC LACERATIO N OTHER 7359 [facility] [facility] MANUALLY 4 REGIONAL REGIONAL ASSISTED MEDICAL MEDICAL DELIVERY 26232 EVAN EVAN BIOPHYSIC 4 ANG ANG AL PROFILE W/O NON-STRES S TESTING CULTURE 37455 LAB MANDY LAB MANDY TYPING 3 KAR KAR NUCLEIC HOLDINGS HOLDINGS ACID PROBE DIR EA ORGANSM CUL 18127 LAB MANDY LAB MANDY PRSMPTV 3 KAR KAR PTHGNC HOLDINGS HOLDINGS ORGANISM SCRN W/[place] PREG 61699 [facility] VERN UTERUS 3 [place] LIS W/DETAIL HIGH RISK O SURY 1ST GESTATION URINE 93690 [facility] AMA 3 D FAMILY TEST MEDICAL VISUAL [place] P[place] 50362 [facility] PEL[facility] SUZIE UTERUS 3 MATERNAL REAL TIME W/[place] [address] [facility] PELON SUZIE 3 MATERNAL UTERUS 14 WK -[place] P[place] [address] UTERUS 3 [facility] AFTER [address] [place] [address] TRIMEST CENTER CENTER GESTATION IADNA [address] GARDNEREL 3 [facility] VAGINALIS CENTER CENTER DIRECT PROBE TQ IADNA [address] TRICHOMON 3 [facility]ENTER CENTER DIRECT PROBE TQ IADNA [address] JAZMINE 3 [facility] SPECIES [facility]ENTER CENTER PROBE TQ IADNA [address] ST NEISSERIA 3 [facility] GONORRHOE CENTER CENTER AE AMPLIFIED PROBE TQ IADNA 22941 [facility] CHLAMYDIA 3 [facility] TRACHOMAT CENTER CENTER IS AMPLIFIED PROBE T[place] URINE 59295 TON[facility] LANCASTER [address] [facility] VISUAL CENTER CENTER COLOR CMPRSN METHS TRANSFERA 11141 NEW NEW SE 2 [facility] H[facility]IZONS ASPARTATE MED CTR MED CTR AMINO AST SGOT TRANSFERA 50954 NEW NEW SE 2 [facility] HORIZONS ALANINE MED CTR MED CTR AMINO ALT SGPT COLLECTIO 49569 NEW NEW N VENOUS 2 [facility]IZONS BLOOD MED CTR MED CTR VENIPUNCT URE FITTING 94002 VISION SHEWMAKER SPECTACLE 2 ONE ASTON S XCPT APHAKIA MONOFOCAL OPHTH 89819 JEROME BASILIO DURGA MEDICAL 2 XM&EVAL COMPRE NEW PT 1/> VST DETERMINA 41144 JEROME BASILIO DURGA TION 2 REFRACTIV E STATE FRAMES V2020 VISION SHEWMAKER PURCHASES 2 ONE ASTON SPHERE V2100 VISION SHEWMAKER SINGLE 2 ONE ASTON VISION PLANO +/- 4.00 PER LENS LENS V2784 VISION SHEWMAKER POLYCARBO 2 ONE ASTON [place] OR EQUAL ANY INDEX PER LENS AMB A0427 [facility] SERVICE [address] [place] [address] ALS LIFE LIFE EMERGENCY SQUAD SQUAD TRANSPORT LEVEL 1 GROUND A0425 TONNY LANCASTER MILEAGE [address] [place] [address] PER LIFE LIFE STATUTE SQUAD SQUAD MILE GONADOTRO 66727 NEW NEW PIN 2 [facility] HORIZONS LUTEINIZI MED CTR MED CTR NG HORMONE GONADOTRO 84670 NEW NEW PIN 2 [facility] HORIZONS FOLLICLE MED CTR [place] [address] NEW NEW THYROID 2 [facility] HORIZONS STIMULATI [place] [address] NEW NEW INSULIN 2 [facility]ORIZONS TOTAL MED CTR MED CTR COLLECTIO 57350 NEW NEW N VENOUS 2 [facility] HORIZONS BLOOD MED CTR MED CTR VENIPUNCT URE LIPID 13589 NEW NEW PANEL 2 [facility] HORIZONS MED CTR MED CTR COMPREHEN 39639 NEW NEW SIVE 2 [facility] METABOLIC [facility] MED [facility] PANEL BLOOD 43614 FAMILY FAMILY COUNT 1 CARE 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 AUTO&AUTO S S DIFRNTL WBC SPHERE V2100 YVONNE RUSSELL, SINGLE 0 LIZZY Aaron VISION PLANO +/- 4.00 PER LENS FRAMES V2020 YVONNE RUSSELL, PURCHASES 0 LIZZY Aaron OPHTH 12109 YVONNE RUSSELL, MEDICAL 0 LIZZY Aaron XM&EVAL COMPRHNSV ESTAB PT 1/> FITTING 79416 YVONNE RUSSELL, SPECTACLE 0 LIZZY Aaron S XCPT APHAKIA MONOFOCAL DETERMINA 17989 YVONNE RUSSELL, TION 0 LIZZY Aaron REFRACTIV E STATE SMR PRIM 49894 [facility] SRC 0 [place] [employer] GRAM/GIEM SA STAIN BCT FUNGI/ANASTASIA L CUL BACT 09276 [facility] XCPT 0 [email or web address] URINE BLOOD/STO OL AEROBIC ISOL CULTURE 12067 [facility] BACTERIAL 0 [place] [facility] [employer] ANY SOURCE ANAEROBIC ISO&ID FRAMES V2020 YVONNE RUSSELL, PURCHASES 9 LIZZY Aaron SPHERE V2100 YVONNE RUSSELL, SINGLE 9 LIZZY Aaron VISION PLANO +/- 4.00 PER LENS OPHTH 17583 YVONNE RUSSELL, MEDICAL 9 LIZZY Aaron XM&EVAL COMPRE NEW PT 1/> VST DETERMINA 87190 YVONNE RUSSELL, TION 9 LIZZY Aaron REFRACTIV E STATE FITTING 77525 YVONNE RUSSELL, SPECTACLE 9 LIZZY Aaron S XCPT APHAKIA MONOFOCAL CLOSURE 8659 PETR [facility] SKIN&SUBC 9 [facility] UTANEOUS INC INC TISSUE OTHER SITES SMPL 47675 [place] KARTHIKEYAN, REPAIR 9 NATIONAL GALEN S SCALP/NEC CORPORATI K/AX/MADDIE ON T/TRUNK 2.6-7.5CM Encounters Encounter Start End Date Code Location Performer Type Date [facility]OSPITAL PETR - 7 7 [facility] PETR - 7 [facility] T OFFICE 54091 [facility] 7 7 PHYSICIAN T VISIT S GROUP 15 MINUTES [facility] PET[facility] - 7 7 [facility] T OFFICE 50523 [facility] 7 7 PHYSICIAN T VISIT S GROUP 15 MINUTES [facility]OSPITAL PETR - 7 7 [facility] T OFFICE 65079 [facility] 7 7 PHYSICIAN T NEW 45 S GROUP MINUTES EMERGENCY [address] [facility] 89874 [facility] 7 7 EMERGENCY DEPARTMEN T VISIT PHYSICIAN HIGH/URGE S NT SEVERITY OFFICE 23047 [facility] 6 6 LTH T NEW 30 ORTHOPAED MINUTES IC CTR EMERGENCY 49426 [facility] [place] [facility]PART[facility] S[facility] T VISIT MODERATE SEVERITY [facility] PETR - 6 6 [facility] OUTPATIEN [facility] 6 6 [facility]AMIST [facility] NEW - 5 5 [facility] T EMERGENCY 52415 NEW 5 5 [facility] DEPARTMEN [facility] T VISIT HIGH/URGE NT SEVERITY OFFICE 29537 FORREST BARROSPATIEN 5 5 [facility] LAR T VISIT FAMILY 10 PRACTICE MINUTES OFFICE 62247 FORREST BARROSPATIEN 5 5 [facility] LAR T VISIT FAMILY 10 PRACTICE MINUTES PERIODIC 84967 RICARDOBERLAN DIAL VINAYAK PREVENTIV 5 5 D FAMILY E MED EST MEDICAL PATIENT CE 18-39 YRS HOSPITAL NEW - 5 5 [facility] T OFFICE 68985 FORREST BARROSPATIEN 5 5 [facility] LAR T VISIT FAMILY 10 PRACTICE MINUTES EMERGENCY 07469 COMPASS BERNARDON 5 5 EMERGENCY DURGA DEPARTMEN T VISIT PHYSICIAN HIGH/URGE S NT SEVERITY OFFICE 94647 FORREST COOBMS OUTPATIEN 5 5 [facility] LAR T VISIT FAMILY 10 PRACTICE MINUTES EMERGENCY 76855 COMPASS RICHARDSO 5 5 EMERGENCY N YESIKA DEPARTMEN T VISIT PHYSICIAN HIGH/URGE S NT SEVERITY OFFICE 78655 FORREST BARROSPATIEN 5 5 [facility] BERNICE T VISIT FAMILY 10 PRACTICE MINUTES HOSPITAL NEW - 4 4 [facility] T OFFICE 99412 FORREST BARROSPATIEN 4 4 [facility] LAR T VISIT FAMILY 15 PRACTICE MINUTES OFFICE 26127 FORREST ARAYA OUTPATIEN 4 4 CARMEN MCCORMACK YESIKA T VISIT FAMILY 15 PRACTICE MINUTES OFFICE 85543 TONNY TONNY OUTPATIEN 4 4 [facility] T VISIT [address] CENTER MINUTES OFFICE 27020 [place] OUTPATIEN 4 4 [facility] BERNICE T VISIT FAMILY 10 PRACTICE MINUTES HOSPITAL NEW - 4 4 [facility] T OFFICE 12290 NEW SMALARA OUTPATIEN 4 4 [facility] BERNICE T VISIT PRIMARY 15 CARE CL MINUTES OFFICE 91560 NEW JOSE RRA OUTPATIEN 4 4 [facility] BERNICE T VISIT PRIMARY 10 CARE CL MINUTES OFFICE 87312 CARLITOS URBINA OUTPATIEN 4 4 ANASTASIA ANASTASIA T VISIT 15 MINUTES OFFICE 00992 CARLITOS URBINA OUTPATIEN 4 4 ANASTASIA ANASTASIA T VISIT 10 MINUTES OFFICE 38862 DIAL VINAYAK DIAL VINAYAK OUTPATIEN 4 4 T VISIT 15 MINUTES OFFICE 21852 DIAL VINAYAK DIAL VINAYAK OUTPATIEN 4 4 T VISIT 15 MINUTES HOSPITAL [facility] - 4 4 [facility] INPATIENT MEDICAL OFFICE 05969 [place] OUTPATIEN 4 4 ANG ANG T VISIT 15 MINUTES OFFICE 37426 ROSA LEE OUTPATIEN 4 4 T MAR T MAR T VISIT 15 MINUTES OFFICE 15268 AMY NELSON OUTPATIEN 3 3 D FAMILY T VISIT MEDICAL 15 CE MINUTES OFFICE 18493 AMY LEE OUTPATIEN 3 3 D FAMILY T MAR T VISIT MEDICAL 15 CE MINUTES OFFICE 96641 AMY LEE OUTPATIEN 3 3 D FAMILY T MAR T VISIT MEDICAL 15 CE MINUTES OFFICE 70466 NEW SMALARA OUTPATIEN 3 3 [facility] BERNICE T VISIT PRIMARY 15 CARE CL MINUTES OFFICE 67425 AMY LEE OUTPATIEN 3 3 D FAMILY T MAR T VISIT MEDICAL 15 CE MINUTES OFFICE 73728 AMY COSTA AMA OUTPATIEN 3 3 D FAMILY T VISIT MEDICAL 15 CE MINUTES EMERGENCY 73183 NEW 3 3 [facility] DEPARTMEN [facility] CTR T VISIT LOW/MODER SEVERITY EMERGENCY 37747 ACUTE MALVIN 3 3 CARE CHR DEPARTMEN BILLING T VISIT [facility] MODERATE SEVERITY HOSPITAL NEW - 3 3 [facility] T OFFICE 81080 AMY OSHEA OUTPATIEN 3 3 D FAMILY T VISIT MEDICAL 15 CE MINUTES OFFICE 29191 AMY GORDON OUTPATIEN 3 3 D FAMILY ANG T VISIT MEDICAL 15 CE MINUTES OFFICE 07909 AMY COSTA AMA OUTPATIEN 3 3 D FAMILY T NEW 45 MEDICAL MINUTES CE OFFICE [address]14 ST MERYL II OUTPATIEN 3 3 JOVITA KAYLEEN T VISIT [address] [facility] - 3 3 [facility]ENC[facility] [address] ST JONI 3 3 JOVITA KRI DEPARTMEN MED CTR T VISIT HIGH/URGE NT SEVERITY OFFICE [address] ST MERYL II OUTPATIEN 3 3 JOVITA KAYLEEN T VISIT [address] [facility] [address] - 3 3 [facility] OUTPATIEN MEDICAL T CENTER OFFICE 43774 NEW SMALARA OUTPATIEN 3 3 [facility] BERNICE T VISIT PRIMARY 15 CARE CL MINUTES OFFICE 46503 TONNY LANCASTER OUTPATIEN 3 3 [facility] T NEW [facility] CENTER OFFICE 68145 NEW [place]OU OUTPATIEN 2 2 [facility] BERNICE T VISIT PRIMARY 15 CARE CL MINUTES HOSPITAL NEW - 2 2 [facility] T OFFICE 40378 NEW JESSI OUTPATIEN 2 2 [facility] EMMETT T VISIT PRIMARY 25 CARE CL MINUTES OFFICE 02999 NEW JESSI OUTPATIEN 2 2 [facility] EMMETT T VISIT PRIMARY 15 CARE CL MINUTES HOSPITAL NEW - 2 2 [facility] T EMERGENCY 89189 NEW 2 2 [facility] DEPARTMEN MED CTR T VISIT LOW/MODER SEVERITY OFFICE 00899 FORREST ARAYA OUTPATIEN 2 2 HORIZONDiana MCCORMACK YESIKA T VISIT PRIMARY 15 CARE CL MINUTES HOSPITAL NEW - 2 2 [facility] T OFFICE 28720 MARSHAL ARAYA OUTPATIEN 2 2 YESIKA YESIKA T VISIT 15 MINUTES OFFICE 26107 FAMILY DEYANIRA OUTPATIEN 1 1 CARE R H T VISIT ASSOCIATE 25 S MINUTES OFFICE 88247 FAMILY MULBERRY OUTPATIEN 1 1 CARE CAROLA T VISIT ASSOCIATE 15 S MINUTES OFFICE 04944 FAMILY DEYANIRA OUTPATIEN 1 1 CARE R H T VISIT ASSOCIATE 15 S MINUTES OFFICE 95017 FAMILY DEYANIRA, OUTPATIEN 0 0 CARE R ALBINO T VISIT ASSOCIATE 15 S MINUTES OFFICE 74216 [facility] 0 0 MIDDLE [facility] T VISIT [facility] 62125 [facility] 0 0 MIDDLE MIDDLE T VISIT [facility] OFFICE 21660 FAMILY DEYANIRA, OUTPATIEN 0 0 CARE R ALBINO T VISIT ASSOCIATE 15 S MINUTES OFFICE 08260 [facility] 0 0 MIDDLE MIDDLE T VISIT [facility] OFFICE 84885 [facility] 0 0 MIDDLE MIDDLE T VISIT [facility]ES OFFICE 63802 [facility] 0 0 MIDDLE MIDDLE T VISIT 5 [facility]ES OFFICE 61534 [facility] 0 0 MIDDLE MIDDLE T VISIT 5 [facility] MIN[facility] OFFICE 55228 FAMILY DEYANIRA, OUTPATIEN 0 0 CARE R ALBINO T VISIT ASSOCIATE 25 S MINUTES OFFICE 99365 [facility] 0 0 MIDDLE MIDDLE T VISIT 5 [facility] OFFICE 06415 [facility] 9 9 MIDDLE MIDDLE T VISIT 5 [facility]ES OFFICE 26541 [facility] 9 9 MIDDLE MIDDLE T VISIT 5 [facility]ES OFFICE 39761 [facility] 9 9 MIDDLE MIDDLE T NEW 10 [facility] MINUTES [facility]OSP[facility] PETR - 9 9 [facility] OUT[facility] T EMERGENCY 44447 PETR 9 9 [facility] DEPARTMEN INC T VISIT MODERATE SEVERITY EMERGENCY 13771 DAMIAN NAPIER, 9 9 [facility] VISIT ON LOW/MODER SEVERITY
--- OUTSIDE RECORDS SUMMARY | 2017-05-18 07:54 | External Medical Summary Rpt | CCD ---
Author Author , NAJMANITA Organization JOANN Address Unknown Phone Care Team Providers Care Enterprise Account Executive Name Role Phone [facility] [place] Unavailable Unavailable LLC, [facility] CORTEZ DURGA, CORTEZ DURGA Unavailable Unavailable CORTEZ DURGA, CORTEZ DURGA Unavailable Unavailable MARSHAL MCCORMACK YESIKA, Unavailable Unavailable MARSHAL MCCORMACK YESIKA MARSHAL MCCORMACK YESIKA, Unavailable Unavailable MARSHAL MCCORMACK YESIKA JONI KRI, Unavailable Unavailable JONI KRI BERNJOE DURGA, Unavailable Unavailable BERNARDON DURGA LAKE, LAKE Unavailable Unavailable PELON SUZIE, PELON SUZIE Unavailable Unavailable [facility] Unavailable Unavailable RISK O, [facility] RISK O TOMASZ TOLBERT Unavailable Un[facility], [facility] Unavailable Unavailable PHYSICIANS, [facility] Unavailable Unavailable MEDICAL CE, [facility] JAYCEE CLEMENTS Unavailable Unavailable KAYLEEN DIAL VINAYAK, DIAL VINAYAK Unavailable Unavailable DIAL VINAYAK, DIAL VINAYAK Unavailable Unavailable LIZZY RUSSELL, Unavailable Unavailable LIZZY RUSSELL [facility], [facility] Un[facility] Unavailable Unavailable [facility]OC[facility]ATES[facility] Unavailable Unavailable MEDICAL, [facility] MEDICAL GALEN NAPIER, Unavailable Unavailable [facility] Unavailable Un[facility], [facility] COSTA AMA, COSTA AMA Unavailable Unavailable [facility], Unavailable Unavailable [facility] HORN MARIBEL, HORN MARIBEL Unavailable Unavailable JEROME DORIE, JEROME DORIE Unavailable Unavailable JEROME DURGA, JEROME DURGA Unavailable Unavailable MALVIN CHR, MALVIN Unavailable Unavailable CHR MALVIN LAR, MALVIN Unavailable Unavailable [facility], [facility] Unavailable Unavailable HOLDINGS, [facility], Unavailable Unavailable [facility] Un[facility], [facility] Unavailable [facility]available [facility], [facility] CARSON SUZIE, CARSON Unavailable Unavailable SUZIE CARSON SUZIE, CARSON Unavailable Unavailable SUZIE CARSON AUBUCHON MARIA ALEJANDRA, Unavailable Unavailable [facility]SON AUBUCHON MARIA ALEJANDRA [facility] AUBUCHON MARIA ALEJANDRA, Unavailable Unavailable CARSON LOPEZCHON MARIA ALEJANDRA MULBERRY CAROLA, Unavailable Unavailable MULBERRY CAROLA [facility] Unavailable Unavailable PRACTICE, [facility], [facility]available Unavailable [facility] PRIMARY Unavailable Unavailable CARE CL, [facility] CL DEYANIRA R H, Unavailable Unavailable DEYANIRA R Ly BOYD, Unavailable Unavailable DEYANIRA R ALBINO ORDMAN STA, ORDMAN Unavailable Unavailable STA ORDMAN STA, ORDMAN Unavailable Unavailable STA [facility] Unavailable Unavailable CENTER, [facility] Unavailable Unavailable CENTER, [facility] Unavailable Unavailable [facility], [facility] Unavailable Unavailable [facility], [facility] MERYL II KAYLEEN, MERYL Unavailable Unavailable II KAYLEEN BROWN YESIKA, Unavailable Unavailable BROWN YESIKA SADEK MOH, SADEK MOH Unavailable Unavailable EVAN ANG, EVAN Unavailable Unavailable ANG EVAN ANG, EVAN Unavailable Unavailable ANG [facility], Unavailable Unavailable [facility] SHEWMAKER ASTON, Unavailable Unavailable SHEWMAKER ASTON SMALARA BERNICE, SMALARA Unavailable Unavailable BERNICE SPENDAL, SPENDAL Unavailable Unavailable [facility] Unavailable Unavailable [facility], [facility] Unavailable Unavailable [facility], [facility] Unavailable Unavailable PHYSICIANS, [facility] Unavailable Unavailable JOEY, [facility] JOEY CHRISTINE, JESSI Unavailable Unavailable EMMETT VERN [...] Provider Status [id number] ENC 04-12-2017 [facility]ORMAL INC PREG UNS TRIMESTER [id number] DECREASED 03-15-2017 [place] [facility] THIRD TRIMESTER NA/UNS Z3A30 30 WEEKS 03-15-2017 [facility] INC [id number] OTHER SPEC 01-03-2017 [place] [facility] RELATED [facility] COND 3RD TRIMESTER Z36 ENCOUNTER 01-03-2017 [facility] FOR [facility] SCREENING OF MOTHER Z3A20 20 WEEKS 01-03-2017 [place] [facility]ATION MEDICAL OF IMAGING ASS [id number] UTERINE 11-23-2016 [facility] SIZE-DATE [facility] DISCREPANCY INC FIRST TRIMESTER Z3492 ENC 11-23-2016 [facility] MEDICAL NORMAL IMAGING ASS UNS 2 TRIMESTER Z3A15 15 WEEKS 11-23-2016 [place] GESTATION MEDICAL OF IMAGING ASS E6601 MORBID 11-08-2016 [facility] OBESITY DUE GROUP TO EXCESS CALORIES Z3201 ENCOUNTER 11-08-2016 [facility] TEST RESULT POSITIVE O209 HEMORRHAGE 10-24-2016 ST. IN EARLY JOVITA JOEY UNSPECIFIED O210 MILD 10-24-2016 ST. HYPEREMESIS JOVITA GRAVIDARUM JOEY Z3A09 9 WEEKS 10-24-2016 ST. GESTATION JOVITA OF JOEY [id number] PERSONAL 10-24-2016 [facility]. HISTORY OF JOVITA NICOTINE JOEY DEPENDENCE X847SOU STRAIN 03-12-2016 [facility] H & TENDON [facility]TH[facility] NECK LEVL CTR INIT ENC [id number] STRAIN 03-12-2016 [facility] MUSCLE H FASCIA & ORTHOPAEDIC TENDON LOW CTR BACK INITIAL [id number] SPRAIN OTH 03-08-2016 [facility] LUMBAR INC SPINE & PELVIS INIT ENC Z720 TOBACCO USE 03-08-2016 [facility] [id number] OTHER LONG 02-21-2016 ST TERM JOVITA CURRENT MED CTR EQUIPMENT VALIDATION ENGINEER DRUG ST THERAPY H5203 HYPERMETROP 05-11-2015 CARSON IA AUBUCHON BILATERAL MARIA ALEJANDRA H5213 MYOPIA 05-11-2015 CORTEZ DURGA BILATERAL 5920 CALCULUS OF 01-04-[address]A KIDNEY 7880 RENAL COLIC 01-03-2015 [facility] 19090 UNSPECIFIED 12-09-2014 NEW INFECTIVE [facility] OTITIS FAMILY EXTERNA PRACTICE 90354 OBESITY, 11-22-2014 NEW UNSPECIFIED [facility] FAMILY PRACTICE 02134 UNSPECIFIED 11-22-2014 [facility] VULVOVAGINI TIS V7231 ROUTINE 11-22-2014 [facility] AL MEDICAL CE EXAMINATION 462 ACUTE 10-31-2014 NEW PHARYNGITIS [facility] 7862 COUGH 10-31-2014 [facility] 7867 ABNORMAL 10-31-2014 NEW CHEST [facility] SOUNDS MED CTR 34177 ACUTE 10-26-2014 NEW LARYNGITIS, [facility] WITHOUT FAMILY MENTION OF PRACTICE OBSTRUCTIO 4659 ACUTE URIS 10-26-2014 NEW OF [facility] UNSPECIFIED FAMILY SITE PRACTICE 50569 VOMITING 10-16-2014 [facility] 83326 DIARRHEA 10-16-2014 [facility] 93639 NAUSEA WITH 10-02-2014 [facility] 99125 DYSHIDROSIS 08-12-2014 NEW [facility] FAMILY PRACTICE 84077 NAUSEA 06-10-2014 [facility] ALONE RADI[facility]Y PC 52594 ABDOMINAL 06-10-2014 F&S PAIN RIGHT RADIOLOGY UPPER PC QUADRANT 37454 ABDOMINAL 06-10-2014 NEW PAIN OTHER [facility] SPECIFIED MED CTR SITE 5990 URINARY 06-08-2014 NEW TRACT [facility] INFECTION FAMILY SITE NOT PRACTICE SPECIFIED 7048 OTHER 05-06-2014 NEW SPECIFIED [facility] DISEASE OF FAMILY HAIR&HAIR PRACTICE FOLLICLES V2689 OTHER 05-04-2014 [facility] HEALTH PROCREATIVE CENTER MANAGEMENT V7241 05-04-2014 [facility] OR TEST CENTER NEGATIVE RESULT 1179 OTHER AND 04-02-2014 NEW UNSPECIFIED [facility] MYCOSES FAMILY PRACTICE 42291 OTHER 02-15-2014 NEW MALAISE AND [facility] FATIGUE MED CTR 7831 ABNORMAL 02-15-2014 NEW WEIGHT GAIN [facility] MED [facility] 6989 UNSPECIFIED 02-02-2014 NEW [place]URITIC [facility] [place] [address] UNSPECIFIED 10-12-2013 NEW SITE OF [facility] ANKLE PRIMARY SPRAIN AND CARE CL STRAIN 23788 MATERNAL 10-06-2013 [facility] MENTAL D/O ANASTASIA COND/COMPLI [...] 2859 UNSPECIFIED 08-16-2013 [facility] MEDICAL 04720 POST TERM 08-16-2013 [place] PG DELIV REGIONAL W/WO MEDICAL MENTION ANTPRTM COND 91097 MATERNAL 08-16-2013 [place] [facility], REGIONAL WITH MEDICAL DELIVERY 12559 TOBACCO USE 08-16-2013 [place] D/O COMP REGIONAL PG MEDICAL CHILDBIRTH/ PP DELIVERED 01446 SECOND-DEGR 08-16-2013 [place] EE PERINEAL REGIONAL LACERATION MEDICAL WITH DELIVERY 48048 POST TERM 08-14-2013 EVAN ANG ANTEPARTUM COND/COMPLI CATION V220 SUPERVISION 08-11-2013 [place] OF NORMAL MAR FIRST 2449 UNSPECIFIED 07-17-2013 [facility] HYPOTHYROID PRIMARY ISM CARE CL 4619 ACUTE 07-17-2013 NEW SINUSITIS, [facility] UNSPECIFIED PRIMARY CARE CL 01562 OTHER 07-06-2013 ACUTE CARE SPECIFED [facility]ILL[facility] [place] [facility] N ANTEPARTUM V222 07-06-2013 [facility] INCIDENTAL MED CTR 63132 TOB USE D/O 06-11-2013 [facility] COMP PG [place] /PP HIGH RISK O ANTEPARTM COND/COMP 72335 OBES COMP 06-11-2013 [facility] PG [place] /THE HIGH RISK O PP ANTEPARTUM COND/COMP 11957 UNS 06-11-2013 [facility] ABNORM MGMT [place] MOTH HIGH RISK O ANTPRTM COND/COMP V283 ENCOUNTER 06-11-2013 [facility] ROUTINE [place] SCREEN HIGH RISK O MALFORMATIO N ULTRASONIC 55203 THREATENED 02-12-2013 [facility] , MATERNAL ANTEPARTUM -MED 93668 UNSPEC 02-12-2013 [facility] ANTEPARTUM 15318 OTH SPEC 01-14-2013 [facility] CARE/INTRVN PHYSICIANS REL L&D UNS EOC 1330 SCABIES 12-17-2012 NEW [facility] PRIMARY CARE CL V7242 12-16-2012 [facility] OR TEST CENTER POSITIVE RESULT 1101 DERMATOPHYT 04-17-2012 NEW [facility] NAIL PRIMARY CARE CL V5869 LONG-TERM 04-17-2012 NEW (CURRENT) [facility] USE OF MED CTR OTHER MEDICATIONS V5883 ENCOUNTER 04-17-2012 NEW FOR [facility] THERAPEUTIC MED CTR DRUG MONITORING 7881 DYSURIA 01-21-2012 NEW [facility] PRIMARY CARE CL 37622 HEMATURIA 01-07-2012 NEW UNSPECIFIED [facility] PRIMARY CARE CL 8820 OPEN WOUND 12-07-2011 NEW HAND NO [facility] FINGER MED CTR ALONE W/O MENTION COMP 8821 OPEN WOUND 12-07-2011 [facility] HAND EXCEPT LIFE [facility] FINGER ALONE COMPLICATED 8910 OPEN WOUND 12-07-2011 [facility] KNEE LIFE [facility] LEG&ANK WITHOUT MENTION COMP 9160 HIP THI 12-07-2011 NEW LEG&ANK [facility] ABRASION/FR MED CTR ICION BURN W/O INF 34126 MORBID 09-17-2011 NEW OBESITY [facility] PRIMARY CARE CL 6264 IRREGULAR 09-01-2011 NEW MENSTRUAL [facility] CYCLE MED CTR 4660 ACUTE 08-31-2011 MARSHAL MCCORMACK BRONCHITIS YESIKA 24996 OVERWEIGHT 03-26-2011 [facility] 460 ACUTE [...] INSECT [employer] NONVENOMOUS W/O INF 48121 UNSPECIFIED 12-07-2009 [facility] CELLULITIS [facility] AND ABSCESS OF FINGER 7295 PAIN IN 12-07-2009 [facility] SO[facility] [employer]IS[employer] [facility] S[employer] LIMB V8289 SPECIAL 10-24-2009 [facility]CRE[facility] SPECIFIED CONDITIONS 5368 DYSPEPSIA&O 08-25-2009 [facility] THER SPEC [employer] DISORDERS S[employer]OL FUNCTION STOMACH 7840 HEADACHE 08-25-2009 [facility] 8900 OPEN WOUND 08-15-2008 SALGADO [...] Procedure DOS Code Location Performer Comment PARTICLE 06475 [facility] AGGLUTINA 7 [facility] TION INC INC SCREEN EACH ANTIBODY DOPPLER 80806 [facility] [place] VELOCIMET 7 MEDICAL RY IMAGING UMBILICAL ASS ARTERY CULTURE 19829 [facility] BACTERIAL 7 [facility]OS[facility] INC [place] [address] [facility] 7 [facility] MEM HOS[facility] UTERUS INC INC LIMITED 1/> FETUSES URNLS DIP 19572 [facility] 7 [facility] STICK/TAB INC INC LET REAGENT AUTO MICROSCOP Y 74368 [facility] [place] 7 MEDICAL AL IMAGING PROFILE ASS W/[place] [address] [facility] INFUSION 7 [facility]OS[facility] HYDRATION INC INC INITIAL 31 MIN-1 HOUR US PREG 56910 [facility] UTERUS 7 [facility] W/DETAIL INC INC SURY 1ST [place] PREG 92465 [facility] [place] UTERUS 7 MEDICAL AFTER 1ST IMAGING TRIMEST ASS 1/ [place] P[place] 82646 [facility] UTERUS 7 [facility] HOS[facility] AFTER 1ST INC INC TRIMEST 1/ [place] [address] [facility] [place] 7 MEDICAL UTERUS IMAGING LIMITED ASS 1/> FETUSES URINE 24283 [facility] TOMASZ 7 PHYSICIAN TEST S GROUP VISUAL COLOR CMPRSN METHS DRUG TEST 61335 [facility] TOLBERT PRSMV 7 PHYSICIAN QUAL DIR S GROUP OPTICAL OBS PER DAY IADNA [address] CHLAMYDIA 7 [place] JOVITA [facility] TRACHOMAT IS AMPLIFIED PROBE TQ IADNA [address] NEISSERIA 7 JOVITA JOVITA [facility] GONORRHOE AE AMPLIFIED PROBE TQ RADEX 72468 [facility] SPINE 6 LTH LTH LUMBOSACR ORTHOPAED ORTHOPAED AL 2/3 IC CTR IC CTR VIEWS RADEX 16525 [facility] SPINE 6 LTH LTH CERVICAL ORTHOPAED ORTHOPAED 2 OR 3 IC CTR IC CTR VIEWS THERAPEUT 33389 [facility] IC 6 MEM HOS[facility]OS[facility] PROPHYLAC INC INC TIC/DX INJECTION SUBQ/IM DRUG TEST G0479 ST ST 6 JOVITA HUSSEIN PRESUMP;I MED CTR MED CTR NSTRUMENT EQUIPMENT VALIDATION ENGINEER ST EQUIPMENT VALIDATION ENGINEER ST ED CHEMISTRY ANLYZER DRUG TEST G0480 ST ST DEFINITV [address] ID MED CTR MED CTR METH P EQUIPMENT VALIDATION ENGINEER ST EQUIPMENT VALIDATION ENGINEER ST DAY 1-7 DRUG CL FRAMES V2020 [facility] DURGA CORTEZ DURGA PURCHASES 5 SCRATCH V2760 [facility] DURGA CORTEZ DURGA RESISTANT 5 COATING PER LENS SPHERE V2100 [facility] DURGA CORTEZ DURGA SINGLE 5 VISION PLANO +/- 4.00 PER LENS FITTING 61691 PettaZGER SPECTACLE 5 AUBUCHON AUBUCHON S XCPT Feb APHAKIA MONOFOCAL LENS V2784 iLink DURGA POLYCARBO 5 [place] OR EQUAL ANY INDEX PER LENS OPHTH 56526 TABELING TABELING MEDICAL 5 JR GABE JR GABE XM&EVAL COMPRE NEW PT 1/> [place] [address] ORDMAN ORDMAN ABDOMEN & 5 STA STA PELVIS W/CONTRAS T MATERIAL THER 04937 NEW NEW PROPH/DX 5 [facility] NJX IV MED CTR MED CTR PUSH SINGLE/1S T SBST/DRUG BASIC 50453 NEW NEW METABOLIC 5 [facility] PANEL MED CTR MED CTR CALCIUM TOTAL COLLECTIO 89144 NEW NEW N VENOUS 5 [facility]ONS BLOOD MED CTR MED CTR VENIPUNCT URE THERAPEUT 71960 NEW NEW IC 5 [facility] INJECTION MED CTR MED CTR IV PUSH EACH NEW DRUG BLOOD 99725 NEW NEW COUNT 5 [facility] COMPLETE MED CTR MED CTR AUTO&AUTO DIFRNTL WBC URINALYSI 77973 NEW NEW S 5 [facility]ONS MICROSCOP MED CTR MED CTR IC ONLY GONADOTRO 26221 NEW NEW PIN 5 [facility] CHORIONIC MED CTR MED CTR QUALITATI VE INJECTION J2405 NEW NEW 5 [facility] HORIZONS ONDANSETR MED CTR MED CTR ON HCL PER 1 MG UNCLASSIF J3490 NEW NEW IED DRUGS 5 [facility]ONS MED CTR MED CTR CULTURE 76237 NEW NEW BACTERIAL 5 [facility]ONS MED CTR MED CTR QUANTTATI VE COLONY COUNT URINE URNLS DIP 97266 NEW NEW 5 [facility] STICK/TAB MED CTR MED CTR LET RGNT AUTO W/O MICROSCOP Y IADNA 99063 MEDICAL MEDICAL CHLAMYDIA 5 DIAGNOSTI DIAGNOSTI C LAB LLC C LAB LLC TRACHOMAT IS AMPLIFIED PROBE TQ [place]ADNA N[place] 40446 MEDICAL MEDICAL 5 DIAGNOSTI DIAGNOSTI AMPLIFIED C LAB [facility] C LAB LLC PROBE TQ EACH ORGANISM IADNA 00862 MEDICAL MEDICAL JAZMINE 5 DIAGNOSTI DIAGNOSTI SPECIES C LAB LLC C LAB LLC AMPLIFIED PROBE TQ IADNA 82052 MEDICAL MEDICAL GARDNEREL 5 DIAGNOSTI DIAGNOSTI LA C LAB LLC C LAB LLC VAGINALIS AMPLIFIED PROBE TQ IADNA 79949 MEDICAL MEDICAL NEISSERIA 5 DIAGNOSTI DIAGNOSTI C LAB LLC C LAB LLC GONORRHOE AE AMPLIFIED PROBE TQ IADNA 24592 MEDICAL MEDICAL TRICHOMON 5 DIAGNOSTI DIAGNOSTI C [facility] C [facility] LLC VAGINALIS AMPLIFIED PROBE TECH THERAPEUT 59004 NEW NEW IC 5 [facility] PROPHYLAC MED CTR MED CTR TIC/DX INJECTION SUBQ/[place] [address] F&S GRAHAM, ABDOMINAL 4 RADIOLOGY [facility] REAL PC TIME W/IMAGE LIMITED URNLS DIP 65037 NEW MALVIN 4 [facility] LAR STICK/TAB FAMILY LET RGNT PRACTICE NON-AUTO W/O MICRSCP URINE 29867 TONNY DONATOEN [address] [place] [address] [place] [address] NEW NEW THYROXINE 4 [facility] TOTAL MED CTR MED CTR BLOOD 12577 NEW NEW COUNT 4 [facility] COMPLETE MED CTR MED CTR AUTO&[place] [address] NEW NEW INSULIN 4 [facility]ONS [place] [address] NEW NEW THYROID 4 HORIZONS HORIZONS STIMULATI MED CTR MED CTR NG HORMONE TSH COMPREHEN 86740 NEW NEW SIVE 4 [facility] METABOLIC MED CTR MED CTR PANEL COLLECTIO 81176 NEW NEW N VENOUS 4 HOR[facility]ONS HORIZONS BLOOD MED CTR MED CTR VENIPUNCT URE OPHTH [address] [facility] 4 SUZIE SUZIE XM&EVAL COMPRE NEW PT 1/> [place] [address] LAB MANDY LAB MANDY THYROID 4 [facility] STIMULATI HOLDINGS HOLDINGS NG HORMONE TSH BLOOD 00302 LAB MANDY LAB MANDY COUNT 4 [facility] COMPLETE HOLDINGS HOLDINGS AUTO&AUTO DIFRNTL [facility] 07040 HORN MARIBEL HORN MARIBEL DISCHARGE 4 DAY MANAGEMEN T 30 MIN/< SBSQ 65340 [facility] 4 T MAR T MAR CARE/DAY 15 MINUTES VAGINAL 01374 HORN MARIBEL HORN MARIBEL DELIVERY 4 ONLY W/POSTPAR SHANELLE CARE NEURAXIAL 47237 [facility] JAYCEE LABOR 4 KAYLEEN ANALG/ANE ANESTHESI [...] 4 REGIONAL REGIONAL ASSISTED MEDICAL MEDICAL DELIVERY 89481 [facility] EV[facility] 4 ANG ANG AL PROFILE W/O NON-STRES S TESTING CULTURE 73935 LAB MANDY LAB MANDY TYPING 3 KAR KAR NUCLEIC HOLDINGS HOLDINGS ACID PROBE DIR EA ORGANSM CUL 91920 LAB MANDY LAB MANDY PRSMPTV 3 KAR KAR PTHGNC HOLDINGS HOLDINGS ORGANISM SCRN W/[place]IMJ [place] PREG 68189 [facility] VERN UTERUS 3 [place] LIS W/DETAIL HIGH RISK O SURY 1ST GESTATION URINE 82997 [facility] AMA 3 D FAMILY TEST MEDICAL VISUAL CE COLOR CMPRSN [place]HS [place] P[place] 86674 [facility] PELON SUZIE UTERUS 3 MATERNAL REAL TIME W/[place] [address] [facility] PELON SUZIE 3 MATERNAL UTERUS 14 WK -[place] P[place] [address] UTERUS 3 [facility] AFTER [address] [place] [address] TRIMEST CENTER CENTER GESTATION IADNA [address] GARDNEREL 3 [facility] VAGINALIS CENTER CENTER DIRECT PROBE TQ IADNA [address] TRICHOMON 3 [facility] VAGINALIS CENTER CENTER DIRECT PROBE TQ IADNA [address] JAZMINE 3 [facility] SPECIES [facility] DIRECT CENTER CENTER PROBE TQ IADNA [address] ST NEISSERIA 3 [facility] GONORRHOE CENTER CENTER AE AMPLIFIED PROBE TQ IADNA 75839 [facility] CHLAMYDIA 3 [facility] TRACHOMAT CENTER CENTER IS AMPLIFIED PROBE TQ URINE 12483 TONNY LANCASTER 3 [facility] VISUAL CENTER CENTER COLOR CMPRSN METHS TRANSFERA 71904 NEW NEW SE 2 [facility]IZONS ASPARTATE MED CTR MED CTR AMINO AST SGOT TRANSFERA 55614 NEW NEW SE 2 [facility] HORIZONS ALANINE MED CTR MED CTR AMINO ALT SGPT COLLECTIO 80103 NEW NEW N VENOUS 2 [facility]IZONS BLOOD MED CTR MED CTR VENIPUNCT URE FITTING 31961 VISION SHEWMAKER SPECTACLE 2 ONE ASTON S XCPT APHAKIA MONOFOCAL OPHTH 99640 JEROME BASILIO DURGA MEDICAL 2 XM&EVAL COMPRE NEW PT 1/> VST DETERMINA 60842 JEROME BASILIO DURGA TION 2 REFRACTIV E STATE FRAMES V2020 VISION SHEWMAKER PURCHASES 2 ONE ASTON SPHERE V2100 VISION SHEWMAKER SINGLE 2 ONE ASTON VISION PLANO +/- 4.00 PER LENS LENS V2784 VISION SHEWMAKER POLYCARBO 2 ONE ASTON [place] OR EQUAL ANY INDEX PER LENS AMB A0427 TONNY LANCASTER SERVICE [address] [place] [address] ALS LIFE LIFE EMERGENCY SQUAD SQUAD TRANSPORT LEVEL 1 GROUND A0425 TONNY LANCASTER MILEAGE [address] [place] [address] PER LIFE LIFE STATUTE SQUAD SQUAD MILE GONADOTRO 23432 NEW NEW PIN 2 [facility] HORIZONS LUTEINIZI MED CTR MED CTR NG HORMONE GONADOTRO 42483 NEW NEW PIN 2 [facility] HORIZONS FOLLICLE MED CTR [place] [address] NEW NEW THYROID 2 [facility] HORIZONS STIMULATI MED [place] [address] NEW NEW INSULIN 2 [facility] HORIZONS TOTAL MED CTR MED CTR COLLECTIO 66269 NEW NEW N VENOUS 2 [facility] HORIZONS BLOOD MED CTR MED CTR VENIPUNCT URE LIPID 41135 NEW NEW PANEL 2 [facility] HORIZONS MED CTR MED CTR COMPREHEN 94029 NEW NEW SIVE 2 [facility]IZONS METABOLIC MED CTR MED CTR PANEL BLOOD 31365 FAMILY FAMILY COUNT 1 CARE 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 AUTO&AUTO S S DIFRNTL WBC SPHERE V2100 YVONNE RUSSELL, SINGLE 0 LIZZY Aaron VISION PLANO +/- 4.00 PER LENS FRAMES V2020 YVONNE RUSSELL, PURCHASES 0 LIZZY Aaron OPHTH 03237 YVNONE RUSSELL, MEDICAL 0 LIZZY Aaron XM&EVAL COMPRHNSV ESTAB PT 1/> FITTING 08420 YVONNE RUSSELL, SPECTACLE 0 LIZZY Aaron S XCPT APHAKIA MONOFOCAL DETERMINA 88757 YVONNE RUSSELL, TION 0 LIZZY Aaron REFRACTIV E STATE SMR PRIM 09321 [facility] SRC 0 [place] [employer] GRAM/GIEM SA STAIN BCT FUNGI/ANASTASIA L CUL BACT 27904 [facility] XCPT 0 [employer] INC URINE BLOOD/STO OL AEROBIC ISOL CULTURE 81513 [facility] BACTERIAL 0 [employer] ANY SOURCE ANAEROBIC ISO&ID FRAMES V2020 YVONNE RUSSELL, PURCHASES 9 LIZZY Aaron SPHERE V2100 YVONNE RUSSELL, SINGLE 9 LIZZY Aaron VISION PLANO +/- 4.00 PER LENS OPHTH 49527 YVONNE RUSSELL, MEDICAL 9 LIZZY Aaron XM&EVAL COMPRE NEW PT 1/> VST DETERMINA 19894 YVONNE RUSSELL, TION 9 LIZZY Aaron REFRACTIV E STATE FITTING 56829 YVONNE RUSSELL, SPECTACLE 9 LIZZY Aaron S XCPT APHAKIA MONOFOCAL CLOSURE 8659 [facility] SKIN&SUBC 9 [facility] UTANEOUS INC INC TISSUE OTHER SITES SMPL 60251 SALGADO KARTHIKEYAN, REPAIR 9 NATIONAL GALEN S SCALP/NEC CORPORATI K/AX/MADDIE ON T/TRUNK 2.6-7.5CM Encounters Encounter Start End Date Code Location Performer Type Date [facility]OSPITAL PET[facility] - 7 7 [facility] T OFFICE 14677 [facility] K[facility]EN 7 7 PHYSICIAN T VISIT S GROUP 15 MINUTES HOSPITAL PETR - 7 7 [facility] T OFFICE 13589 [facility] OUTPATIEN 7 7 PHYSICIAN T VISIT S GROUP 15 MINUTES HOSPITAL PETR - 7 7 [facility] INC T OFFICE 72463 [facility] OUT[facility]IEN 7 7 PHYSICIAN T NEW 45 S GROUP MINUTES EMERGENCY [address] [facility] - 7 7 [facility] 82825 [facility] 7 7 EMERGENCY DEPARTMEN T VISIT PHYSICIAN HIGH/URGE S NT SEVERITY OFFICE 61401 [facility] 6 6 LTH T NEW 30 ORTHOPAED MINUTES IC CTR EMERGENCY 80021 [facility] 6 6 PHYSICIAN DEPARTMEN S, PLLC T VISIT MODERATE SEVERITY HOSPITAL PETR - 6 6 [facility]EN [facility] 6 6 JOVITA MED CTR EQUIPMENT VALIDATION ENGINEER [facility] NEW - 5 5 [facility] OUT[facility] T EMERGENCY 59413 NEW 5 5 [facility] DEPARTMEN MED CTR T VISIT HIGH/URGE NT SEVERITY OFFICE 83384 [facility] 5 5 [facility] LAR T VISIT FAMILY 10 PRACTICE MINUTES OFFICE 85491 [facility] 5 5 [facility] LAR T VISIT FAMILY 10 PRACTICE MINUTES PERIODIC 60804 [facility] PREVENTIV 5 5 D FAMILY E MED EST MEDICAL PATIENT CE 18-39 YRS HOSPITAL NEW - 5 5 [facility] T OFFICE 05764 [facility] 5 5 [facility] LAR T VISIT FAMILY 10 PRACTICE MINUTES EMERGENCY 91929 [facility] 5 5 EMERGENCY DURGA DEPARTMEN T VISIT PHYSICIAN HIGH/URGE S NT SEVERITY OFFICE 48792 [facility] OUTPATIEN 5 5 [facility] LAR T VISIT FAMILY 10 PRACTICE MINUTES EMERGENCY 94695 [facility] 5 5 EMERGENCY N YESIKA DEPARTMEN T VISIT PHYSICIAN HIGH/URGE S NT SEVERITY OFFICE 17429 [facility] BARROSPATIEN 5 5 [facility] BERNICE T VISIT FAMILY 10 PRACTICE MINUTES HOSPITAL NEW - 4 4 [facility] T OFFICE [id number] FORREST BARROSPATIEN 4 4 [facility] LAR T VISIT FAMILY 15 PRACTICE MINUTES OFFICE 89382 FORREST ARAYA OUTPATIEN 4 4 CARMEN MCCORMACK YESIKA T VISIT FAMILY 15 PRACTICE MINUTES OFFICE 27015 TONNY TONNY OUTPATIEN 4 4 [facility] T VISIT [address] CENTER MINUTES OFFICE 81750 [place] OUTPATIEN 4 4 [facility] BERNICE T VISIT FAMILY 10 PRACTICE MINUTES HOSPITAL NEW - 4 4 [facility] T OFFICE 21792 NEW SMALARA OUTPATIEN 4 4 [facility] B[facility] T VISIT PRIMARY 15 CARE CL MINUTES OFFICE 11027 NEW JOSE RRA OUTPATIEN 4 4 [facility] BERNICE T VISIT PRIMARY 10 CARE CL MINUTES OFFICE 95964 CARLITOS URBINA OUTPATIEN 4 4 ANASTASIA ANASTASIA T VISIT 15 MINUTES OFFICE 00328 CARLITOS URBINA OUTPATIEN 4 4 ANASTASIA ANASTASIA T VISIT 10 MINUTES OFFICE 05956 DIAL VINAYAK DIAL VINAYAK OUTPATIEN 4 4 T VISIT 15 MINUTES OFFICE 06495 DIAL VINAYAK DIAL VINAYAK OUTPATIEN 4 4 T VISIT 15 MINUTES HOSP[facility] - 4 4 [facility] INPATIENT MEDICAL OFFICE 29453 [place]AN [place]ON OUTPATIEN 4 4 ANG ANG T VISIT 15 MINUTES OFFICE 76738 ROSA LEE OUTPATIEN 4 4 T MAR T MAR T VISIT 15 MINUTES OFFICE 44751 AMY NELSON OUTPATIEN 3 3 D FAMILY T VISIT MEDICAL 15 CE MINUTES OFFICE 83905 AMY LEE OUTPATIEN 3 3 D FAMILY T MAR T VISIT MEDICAL 15 CE MINUTES OFFICE 31544 AMY LEE OUTPATIEN 3 3 D FAMILY T MAR T VISIT MEDICAL 15 CE MINUTES OFFICE 38409 NEW SMALARA OUTPATIEN 3 3 [facility] T VISIT PRIMARY 15 CARE CL MINUTES OFFICE 62561 AMY LEE OUTPATIEN 3 3 D FAMILY T MAR T VISIT MEDICAL 15 CE MINUTES OFFICE 78449 AMY COSTA AMA OUTPATIEN 3 3 D FAMILY T VISIT MEDICAL 15 CE MINUTES EMERGENCY 43144 NEW 3 3 [facility] T VISIT LOW/MODER SEVERITY EMERGENCY 02309 ACUTE MALVIN 3 3 CARE CHR DEPARTMEN BILLING T VISIT [facility] MODERATE [facility]VERITY HOSP[facility] NEW - 3 3 [facility] T OFFICE 62681 AMY OSHEA OUTPATIEN 3 3 D FAMILY T VISIT MEDICAL 15 CE MINUTES OFFICE 26299 AMY GORDON OUTPATIEN 3 3 D FAMILY ANG T VISIT MEDICAL 15 CE MINUTES OFFICE 10182 AMY COSTA AMA OUTPATIEN 3 3 D FAMILY T NEW 45 MEDICAL MINUTES CE OFFICE [address]36 ST MERYL II OUTPATIEN 3 3 JOVITA KAYLEEN T VISIT 15 PHYSICIAN [facility] - 3 [facility] [address] [facility] JONI 3 3 JOVITA KRI DEPARTMEN MED CTR T VISIT HIGH/URGE NT SEVERITY OFFICE [address]554 ST MERYL II OUTPATIEN 3 3 JOVITA KAYLEEN T VISIT 25 PHYSICIAN [facility] - 3 3 JOV[facility] OUTPATIEN MEDICAL T CENTER OFFICE 11238 [place] OUTPATIEN 3 3 [facility] BERNICE T VISIT PRIMARY 15 CARE CL MINUTES OFFICE 65966 TONNY [place] OUTPATIEN 3 3 [facility] T NEW [address] [facility] CENTER OFFICE 43013 NEW [place]OU OUTPATIEN 2 2 [facility] BERNICE T VISIT PRIMARY 15 CARE CL MINUTES HOSPITAL NEW - 2 2 [facility] T OFFICE 62045 NEW JESSI OUTPATIEN 2 2 [facility] EMMETT T VISIT PRIMARY 25 CARE CL MINUTES OFFICE 73495 NEW JESSI OUTPATIEN 2 2 [facility] EMMETT T VISIT PRIMARY 15 CARE CL MINUTES HOSPITAL NEW - 2 2 [facility] T EMERGENCY 39296 NEW 2 2 [facility] T VISIT LOW/MODER SEVERITY OFFICE 17986 FORREST ARAYA OUTPATIEN 2 2 HORIZONDiana MCCORMACK YESIKA T VISIT PRIMARY 15 CARE CL MINUTES HOSPITAL NEW - 2 2 [facility] T OFFICE 30684 MARSHAL ARAYA OUTPATIEN 2 2 YESIKA YESIKA T VISIT 15 MINUTES OFFICE 85261 FAMILY DEYANIRA OUTPATIEN 1 1 CARE R H T VISIT ASSOCIATE 25 S MINUTES OFFICE 14891 FAMILY MULBERRY OUTPATIEN 1 1 CARE CAROLA T VISIT ASSOCIATE 15 S MINUTES OFFICE 67498 FAMILY DEYANIRA OUTPATIEN 1 1 CARE R H T VISIT ASSOCIATE 15 S MINUTES OFFICE 10373 FAMILY DEYANIRA, OUTPATIEN 0 0 CARE R ALBINO T VISIT ASSOCIATE 15 S MINUTES OFFICE 58236 [facility] 0 0 MIDDLE MIDDLE T VISIT [facility] 15773 [facility] 0 0 MIDDLE MID[facility]LE T VISIT [facility] MIN[facility] OFFICE 09784 FAMILY DEYANIRA, OUTPATIEN 0 0 CARE R ALBINO T VISIT ASSOCIATE 15 S MINUTES OFFICE 18576 [facility] 0 0 MIDDLE MIDDLE T VISIT 5 [facility] OFFICE 18544 [facility] OUTPATI[facility] 0 0 MIDDLE MIDDLE T VISIT 5 [facility] MIN[facility] OFFICE 41891 [facility] OUT[facility] 0 0 MIDDLE MIDDLE T VISIT 5 [facility] MINUT[facility] OFFICE 27870 [facility] OUTPATIEN 0 0 MIDDLE MIDDLE T VISIT 5 [facility] MINUTES OFFICE 63087 FAMILY DEYANIRA, OUTPATIEN 0 0 CARE R ALBINO T VISIT ASSOCIATE 25 S MINUTES OFFICE 65207 [facility] OUT[facility] 0 0 MIDDLE MIDDLE T VISIT 5 [facility] OFFICE 41988 [facility] OUTPATI[facility] 9 9 MIDDLE MIDDLE T VISIT 5 [facility] MINUT[facility] OFFICE 63243 [facility] 9 9 MIDDLE MIDDLE T VISIT 5 [facility] MINUTES OFFICE 73447 [facility] 9 9 [facility]DLE MID[facility]LE T NEW 10 [facility] MINUTES [facility] - 9 9 [facility] EMERGENCY 00634 PETR 9 9 [facility] T VISIT MODERATE SEVERITY EMERGENCY 10477 DAMIAN NAPIER, 9 9 [facility] T VISIT ON LOW/MODER SEVERITY
--- OUTSIDE RECORDS SUMMARY | 2017-05-18 07:55 | External Medical Summary Rpt | CCD ---
Author Author , JOANN Barreto JOANN Address Unknown Phone [email or web address] Immunization Name Date Rout CVX Reac Dose Comm Prov Is Faci e tion ent ider Refu lity Give sed n Augusto 10-1 10 999 Hist H196 No H196 o-IP 8-20 oric V 00 al Info rmat ion - Sour ce Unsp ecif ied MMR 10-1 3 999 Hist H196 No H196 8-20 oric 00 al Info rmat ion - Sour ce Unsp ecif ied DTaP 10-1 107 999 Hist H196 No H196 , UF 8-20 oric 00 al Info rmat ion - Sour ce Unsp ecif ied Hep 03-1 8 999 Hist H196 No H196 B, 2-19 oric ped/ 98 al adol Info rmat ion - Sour ce Unsp ecif ied Vari 03-1 21 999 Hist H196 No H196 cell 2-19 oric a 98 al Info rmat ion - Sour ce Unsp ecif ied Augusto 01-2 2 999 Hist H196 No H196 o-OP 6-19 oric V 98 al Info rmat ion - Sour ce Unsp ecif ied MMR 01-2 3 999 Hist H196 No H196 6-19 oric 98 al Info rmat ion - Sour ce Unsp ecif ied DTP- 01-2 22 999 Hist H196 No H196 Hib 6-19 oric 98 al Info rmat ion - Sour ce Unsp ecif ied DTP- 04-0 22 999 Hist H196 No H196 Hib 9-19 oric 97 al Info rmat ion - Sour ce Unsp ecif ied Augusto 04-0 2 999 Hist H196 No H196 o-OP 9-19 oric V 97 al Info rmat ion - Sour ce Unsp ecif ied DTP- 01-1 22 999 Hist H196 No H196 Hib 5-19 oric 97 al Info rmat ion - Sour ce Unsp ecif ied MMR 01-1 3 999 Hist H196 No H196 5-19 oric 97 al Info rmat ion - Sour ce Unsp ecif ied Hep 11-0 8 999 Hist H196 No H196 B, 6-19 oric ped/ 96 al adol Info rmat ion - Sour ce Unsp ecif ied DTP- 11-0 22 999 Hist H196 No H196 Hib 6-19 oric 96 al Info rmat ion - Sour ce Unsp ecif ied Augusto 11-0 2 999 Hist H196 No H196 o-OP 6-19 oric V 96 al Info rmat ion - Sour ce Unsp ecif ied
--- OUTSIDE RECORDS SUMMARY | 2017-05-18 07:55 | External Medical Summary Rpt | CCD ---
Author Author , JOANN Barreto JOANN Address Unknown Phone [email or web address] Immunization Name Date Rout CVX Reac Dose [...]
--- OUTSIDE RECORDS SUMMARY | 2017-05-18 07:56 | External Medical Summary Rpt ---
Author Author JOANN Pinto, NAJMANITA [employer] Organization [employer] Address Unknown Phone Unavailable Results Drugs identified in Urine by Screen method Observa Value Referen Units Interpr Notes Date tion ce etation Range Collected by nurse? Y Hold specimen in OE? N Positive urine drug screen samples are stored for 7 days. Contact the Lab if confirmation of positives is needed. Ampheta NEGATIV <1000 ng/mL No No Oct 2 mine E informa informa 2017 [Presen tion in tion in 10:20 ce] in source source PM Urine data data by Screen method Barbitura <200 ng/mL No No Oct 2 jazmín informati informati 2017 [Mass/vol on in on in 10:20 PM ume] in source source Urine by data data Screen method Benzodiaz 200 ng/mL ng/mL No No Oct 2 epines informati informati 2017 [Mass/vol on in on in 10:20 PM ume] in source source Serum or data data Plasma by Screen method Cocaine <300 ng/g No No Oct 2 [Mass/vol informati informati 2017 ume] in on in on in 10:20 PM Unspecifi source source ed data data specimen Methadone <300 ng/mL No No Oct 2 informati informati 2017 [Mass/vol on in on in 10:20 PM ume] in source source Unspecifi data data ed specimen Opiates <300 ng/mL No No Oct 2 [Mass/vol informati informati 2017 ume] in on in on in 10:20 PM Unspecifi source source ed data data specimen Phencycli <25 ng/mL No No Oct 2 dine informati informati 2017 [Mass/vol on in on in 10:20 PM ume] in source source Unspecifi data data ed specimen 11-Hydr NEGATIV <50 ng/mL No No Oct 2 oxy E informa informa 2017 delta-9 tion in tion in 10:20 source source PM tetrahy data data drocann abinol [Presen ce] in Unspeci fied specime n Choriogonadotropin.beta subunit [Units] in 24 hour Urine Observa Value Referen Units Interpr Notes Date tion ce etation Range 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 IS THIS PT'S Choriogon NEG No No No Oct 2 adotropin informati informati informati 2017 .beta on in on in on in 10:20 PM subunit source source source [Units] data data data in 24 hour Urine POC UA Observa Value Referen Units Interpr Notes Date tion ce etation Range UA Yellow No No No No Sep 25 Color informa informa informa informa 2017 POC tion in tion in tion in tion in 1:44 PM source source source source data data data data UA Clear Clear No No No Sep 25 Appear informa informa informa 2017 POC tion in tion in tion in 1:44 PM source source source data data data UA Gluc Negativ Negativ No No No Sep 25 POC e e informa informa informa 2017 tion in tion in tion in 1:44 PM source source source data data data UA Negativ Negativ No No No Sep 25 Ketones e e informa informa informa 2017 POC tion in tion in tion in 1:44 PM source source source data data data UA Negativ Negativ No No No Sep 25 Blood e e informa informa informa 2017 POC tion in tion in tion in 1:44 PM source source source data data data UA pH 6.5 5.0 - No No No Sep 25 POC 8.0 informa informa informa 2017 tion in tion in tion in 1:44 PM source source source data data data UA Trace Negativ No Abnorma No Sep 25 Protein e informa l informa 2017 POC tion in tion in 1:44 PM source source data data UA 0.2 <=1 No No No Sep 25 Urobili mg/dl mg/dl informa informa informa 2017 nogen tion in tion in tion in 1:44 PM POC source source source data data data UA Negativ Negativ No No No Sep 25 Nitrite e e informa informa informa 2017 POC tion in tion in tion in 1:44 PM source source source data data data UA Leuk Small Negativ No Abnorma No Sep 25 Est e informa l informa 2017 POC tion in tion in 1:44 PM source source data data UA SG 1.025 1.001 - No No No Apr 29 POC 1.035 informa informa informa 2017 tion in tion in tion in 1:44 PM source source source data data data Urinalysis dipstick W Reflex Microscopic panel in Urine Observa Value Referen Units Interpr Notes Date tion ce etation Range Appeara CLEAR CLEAR No No No Sep nce of informa informa informa 2017 Urine tion in tion in tion in 9:58 PM source source source data data data Amorpho 3+ NONE No No No Sep us informa informa informa 2017 sedimen tion in tion in tion in 9:58 PM t source source source [Presen data data data ce] in Urine sedimen t by Light microsc opy Bacteri 3+ O No No No Sep a informa informa informa 2016 [Presen tion in tion in tion in 9:58 PM ce] in source source source Urine data data data sedimen t by Light microsc opy Bilirub NEGATIV NEG No No No Sep in E informa informa informa 2016 [Presen tion in tion in tion in 9:58 PM ce] in source source source Urine data data data by Test strip Erythro NEGATIV NEG No No No Sep cytes E informa informa informa 2016 [Presen tion in tion in tion in 9:58 PM ce] in source source source Urine data data data Color YELLOW YELLOW No No No Sep of informa informa informa 2017 Urine tion in tion in tion in 9:58 PM source source source data data data Glucose NEG No No No Sep [Mass/vol informati informati informati 2017 9:58 ume] in on in on in on in PM Urine by source source source Test data data data strip Ketones NEGATIV NEG mg/dL No No Sep E informa informa 2016 [Presen tion in tion in 9:58 PM ce] in source source Urine data data by Automat ed test strip Mucus 2+ NEG No Abnorma No Sep 19 [Presen informa l informa 2017 ce] in tion in tion in 9:58 PM Urine source source sedimen data data t by Light microsc opy Nitrite NEGATIV NEG No No No Sep 19 E informa informa informa 2017 [Presen tion in tion in tion in 9:58 PM ce] in source source source Urine data data data by Test strip pH of 5.0 - 8.5 No Normal No Sep 19 Urine informati informati 2017 9:58 on in on in PM source source data data Protein NEG mg/dL No No Sep 19 [Mass/vol informati informati 2017 9:58 ume] in on in on in PM Urine by source source Automated data data test strip Erythro 3-5 0 rbc/hpf No No Sep 19 cytes informa informa 2017 [Presen tion in tion in 9:58 PM ce] in source source Urine data data sedimen t by Light microsc opy Specific 1.005 - No Normal No Sep 19 gravity 1.030 informati informati 2017 9:58 of Urine on in on in PM source source data data Epithel TNTC 0 - 5 #/hpf No No Sep 19 ial informa informa 2017 cells.s tion in tion in 9:58 PM quamous source source data data [Presen ce] in Urine sedimen t by Microsc opy high power field Urobili 0.2 NEG E.U./dL No No Sep 19 nogen informa informa 2017 [Presen tion in tion in 9:58 PM ce] in source source Urine data data by Test strip Leukocy [20 O wbc/hpf No No Sep 19 jazmín wbc/hpf informa informa 2017 [#/volu ; 50 tion in tion in 9:58 PM me] in wbc/hpf source source Urine ] data data Urinalysis dipstick W Reflex Microscopic panel in Urine Observa Value Referen Units Interpr Notes Date tion ce etation Range Appeara CLEAR CLEAR No No No Sep 19 nce of informa informa informa 2017 Urine tion in tion in tion in 9:58 PM source source source data data data Bilirub NEGATIV NEG No No No Sep 19 in E informa informa informa 2017 [Presen tion in tion in tion in 9:58 PM ce] in source source source Urine data data data by Test strip Erythro NEGATIV NEG No No No Sep 19 cytes E informa informa informa 2016 [Presen tion in tion in tion in 9:58 PM ce] in source source source Urine data data data Color YELLOW YELLOW No No No Sep 19 of informa informa informa 2017 Urine tion in tion in tion in 9:58 PM source source source data data data Glucose NEG No No No Sep [Mass/vol informati informati informati 2017 9:58 ume] in on in on in on in PM Urine by source source source Test data data data strip Ketones NEGATIV NEG mg/dL No No Sep E informa informa 2016 [Presen tion in tion in 9:58 PM ce] in source source Urine data data by Automat ed test strip Mucus 2+ NEG No Abnorma No Sep [Presen informa l informa 2016 ce] in tion in tion in 9:58 PM Urine source source sedimen data data t by Light microsc opy Nitrite NEGATIV NEG No No No Sep E informa informa informa 2016 [Presen tion in tion in tion in 9:58 PM ce] in source source source Urine data data data by Test strip pH of 5.0 - 8.5 No Normal No Sep 19 Urine informati informati 2017 9:58 on in on in PM source source data data Protein NEG mg/dL No No Sep 19 [Mass/vol informati informati 2017 9:58 ume] in on in on in PM Urine by source source Automated data data test strip Specific 1.005 - No Normal No Sep 19 gravity 1.030 informati informati 2017 9:58 of Urine on in on in PM source source data data Urobili 0.2 NEG E.U./dL No No Sep 19 nogen informa informa 2016 [Presen tion in tion in 9:58 PM ce] in source source Urine data data by Test strip Amylase [Enzymatic activity/volume] in Serum or Plasma Observa Value Referen Units Interpr Notes Date tion ce etation Range Amylase 25 - 115 U/L Normal No Sep 19 [Enzymati informati 2017 9:40 c on in PM activity/ source volume] data in Serum or Plasma Comprehensive metabolic 2000 panel in Serum or Plasma Observa Value Referen Units Interpr Notes Date tion ce etation Range Albumin/G 1.1 - 1.8 No Low No Sep 19 lobulin informati informati 2017 9:40 [Mass on in on in PM ratio] in source source Serum or data data Plasma Albumin 3.4 - 5.0 gm/dL Low No Sep 19 [Mass/vol informati 2017 9:40 ume] in on in PM Serum or source Plasma data Alkaline 46 - 116 U/L High No Sep 19 phosphata informati 2017 9:40 se on in PM [Enzymati source c data activity/ volume] in Serum or Plasma Bilirubin 0.2 - 1.0 mg/dL Normal No Sep 19 .total informati 2017 9:40 [Mass/vol on in PM ume] in source Serum or data Plasma Urea 7 - 18 mg/dL Low No Sep 19 nitrogen informati 2017 9:40 [Mass/vol on in PM ume] in source Serum or data Plasma Calcium 8.5 - mg/dL Normal No Sep 19 [Mass/vol 10.1 informati 2017 9:40 ume] in on in PM Serum or source Plasma data Chloride 98 - 107 mmoL/L Normal No Sep 19 [Moles/vo informati 2017 9:40 lume] in on in PM Serum or source Plasma data Carbon 21.0 - mmoL/L Normal No Sep 19 dioxide, 32.0 informati 2017 9:40 total on in PM [Moles/vo source lume] in data Serum or Plasma Creatinin 0.55 - mg/dL Normal No Sep 19 e 1.02 informati 2017 9:40 [Mass/vol on in PM ume] in source Serum or data Plasma Creatinin 50 - 200 ML/MIN High No Sep 19 e renal informati 2017 9:40 clearance on in PM source predicted data by Cockcroft -Gault formula Estimated 59- ML/MIN No REFERENCE Sep 19 informati RANGE: 2017 9:40 glomerula on in >60 PM r source ML/MIN/1. filtratio data 73 SQUARE n rate METERSIf (GF this patient is -A merican, then multiply theresult by 1.210. Globulin 1.3 - 3.2 gm/dL High No Sep 19 [Mass/vol informati 2017 9:40 ume] in on in PM Serum source data Glucose 74 - 106 mg/dL Normal No Sep 19 [Mass/vol informati 2017 9:40 ume] in on in PM Serum or source Plasma data Potassium 3.5 - 5.1 mmoL/L Normal No Sep 19 inform2016 9:40 [Moles/vo on in PM lume] in source Serum or data Plasma Sodium 136 - 145 mmoL/L Normal No Sep 19 [Moles/vo inform2016 9:40 lume] in on in PM Serum or source Plasma data Aspartate 15 - 37 U/L Low No Sep 19 inform2016 9:40 aminotran on in PM sferase source [Enzymati data c activity/ volume] in Serum or Plasma Alanine 12 - 78 U/L Normal No Sep 19 aminotran inform2016 9:40 sferase on in PM [Enzymati source c data activity/ volume] in Serum or Plasma Protein 6.4 - 8.2 gm/dL Normal No Apr 19 [Mass/vol inform2016 9:40 ume] in on in PM Serum or source Plasma data Lipase [Enzymatic activity/volume] in Serum or Plasma Observa Value Referen Units Interpr Notes Date tion ce etation Range Lipase 73 - 393 U/L Normal No Apr 19 [Enzymati informati 2016 9:40 c on in PM activity/ source volume] data in Serum or Plasma CBC W Auto Differential panel in Blood Observa Value Referen Units Interpr Notes Date tion ce etation Range Basophils 0 - 0.2 K/MM3 Normal No Sep 19 inform2016 9:40 [#/volume on in PM ] in source Blood by data Automated count Basophils 0.1 - 2.0 % Normal No Apr 19 /100 informati 2016 9:40 leukocyte on in PM s in source Blood by data Automated count Eosinophi 0.0 - 0.4 K/mm3 Normal No Sep 19 ls informati 2016 9:40 [#/volume on in PM ] in source Blood by data Automated count Eosinophi 0.1 - % Normal No Sep 19 ls/100 12.0 informati 2016 9:40 leukocyte on in PM s in source Blood by data Automated count Granulocy 1.8 - 7.8 K/mm3 Normal No Sep 19 jazmín inform2016 9:40 [#/volume on in PM ] in source Blood by data Automated count Granulocy 37.0 - % Normal No Sep 19 jazmín/100 80.0 informati 2016 9:40 leukocyte on in PM s in source Blood by data Automated count Hematocri 37.0 - % Low No Sep 19 t [Volume 47.0 informati 2017 9:40 on in PM Fraction] source of Blood data Hemoglobi 12.2 - g/dL Low No Sep 19 n 16.2 informati 2017 9:40 [Mass/vol on in PM ume] in source Blood data Lymphocyt 0.7 - 4.5 K/mm3 Normal No Sep 19 es informati 2017 9:40 [#/volume on in PM ] in source Unspecifi data ed specimen by Automated count Lymphocyt 10 - 50.0 % Normal No Sep 19 es informati 2017 9:40 [#/volume on in PM ] in source Unspecifi data ed specimen by Automated count Erythrocy 27 - 31.2 pg Normal No Sep 19 te mean informati 2017 9:40 corpuscul on in PM ar source hemoglobi data n [Entitic mass] Erythrocy 31.8 - g/dl Normal No Sep 19 te mean 35.4 informati 2017 9:40 corpuscul on in PM ar source hemoglobi data n concentra tion [Mass/vol ume] by Automated count Erythrocy 82.2 - fl Normal No Sep 19 te mean 97.8 informati 2017 9:40 corpuscul on in PM ar volume source [Entitic data volume] by Automated count Monocytes 0.1 - 1.0 K/mm3 Normal No Sep 19 informati 2017 9:40 [#/volume on in PM ] in source Blood by data Automated count Monocytes 1.7 - 9.3 % Normal No Sep 19 /100 informati 2017 9:40 leukocyte on in PM s in source Blood by data Automated count Platelet 7.4 - fl Normal No Sep 19 mean 10.4 informati 2017 9:40 volume on in PM [Entitic source volume] data in Blood by Automated count Platelets 142 - 424 K/mm3 Normal No Sep 19 informati 2017 9:40 [#/volume on in PM ] in source Blood data Erythrocy 4.2 - 5.4 M/mm3 Low No Sep 19 jazmín informati 2017 9:40 [#/volume on in PM ] in source Amniotic data fluid Erythrocy 11.5 - % Normal No Sep 19 te 17.5 informati 2017 9:40 distribut on in PM ion width source [Entitic data volume] by Automated count Leukocyte 4.8 - K/MM3 High No Sep 19 s 10.8 informati 2017 9:40 [#/volume on in PM ] in source Blood data Chlamydia/GC Amplification Observa Value Referen Units Interpr Notes Date tion ce etation Range Chlamyd Negativ Negativ No No No December 19 ia e e informa informa informa 2017 trachom tion in tion in tion in atis source source source rRNA data data data [Presen ce] in Unspeci fied specime n by Probe & target amplifi cation method Neisser Negativ Negativ No No Perform December 19 ia e e informa informa ed at: 2017 gonorrh tion in tion in CB - oeae source source [facility] rRNA data data [Presen [place] ce] in [address], specime [place], [place] by [place] Probe & [id number] target 69Lab Directo amplifi r: cation Vincent method Gloria ti PhD, Phone: [phone] Chlamyd/GC TMA Observa Value Referen Units Interpr Notes Date tion ce etation Range Chlamyd Negativ No No No No Oct 25 ia e informa informa informa informa 2017 trachom tion in tion in tion in tion in 12:01 atis source source source source PM data data data data Neisser Negativ No No No Testing Oct 25 ia e informa informa informa 2017 gonorrh tion in tion in tion in methodo 12:01 oeae source source source logy is PM data data data transcr iption mediate d amplifi cation (TMA) using the Aptima Combo 2 assay from [employer] be.\\.br \\A negativ e result does not complet rubens rule out a Chlamyd ia trachom atis or Neisser ia gonorrh oeae infecti on due to potenti al inhibit ors or levels present below the limit of detecti on by this assay. Results are depende nt on proper collect ion and transpo rt of specime n. This test is indicat ed for medical purpose s only and should not be used for legal or forensi c purpose s.\\.br\\ \\.br\\Th e perform ance charact eristic s of this test were validat ed by [facility] are laborat ory. This assay is FDA cleared to test the followi ng specime ns: clinici an-mitchell ected endocer vical, vaginal and male urethra l swab specime ns, patient collect ed vaginal specime ns within a clinic setting , Thin Prep Specime ns in Preserv Cyt Solutio n, and first-s tream, unprese rved male urine specime ns. Testing on female urine is not FDA approve d by this methodo logy, but has been develop ed and validat ed by the [facility] are laborat ory. Detaile d methodo logy is availab le upon request . hCG Quant Observa Value Referen Units Interpr Notes Date tion ce etation Range hCG 24559 No mIU/mL No \\.br\\< Oct 24 Quant informa informa 5 2017 tion in ti in mIU/mL 4:52 PM source source data data Negativ e\\.br\\5 -25 mIU/mL Indeter minate\\ .br\\> 25 mIU/mL Positiv e\\.br\\\\ .br\\Izabel ues between 5 and 25 mIU/mL are indeter minate for pregnan cy. Conside r confirm ing with repeat test in 48-72 hours. Values in pregnan cy should double every 3 days for the first 6 weeks. UA Observa Value Referen Units Interpr Notes Date ti ce etation Range UA Yellow No No No No Oct 24 Color informa informa informa informa 2017 tion in tion in tion in ti in 4:29 PM source source source source data data data data UA Clear Clear No No No Oct 24 Appear informa informa informa 2016 ti in ti in ti in 4:29 PM source source source data data data UA Negativ Negativ No No No Oct 24 Glucose e e informa informa informa 2016 ti in ti in tion in 4:29 PM source source source data data data UA Negativ Negativ No No No Oct 24 Ketones e e informa informa informa 2016 tion in ti in tion in 4:29 PM source source source data data data UA Trace-i Negativ No Abnorma No Oct 24 Blood ntact e informa l informa 2016 tion in ti in 4:29 PM source source data data UA pH 6.0 5.0 - No No Referen Oct 24 8.0 informa informa ce 2016 tion in tion in range 4:29 PM source source valid data data for random specime ns only. UA Negativ Negativ No No No Oct 24 Protein e e informa informa informa 2017 tion in tion in tion in 4:29 PM source source source data data data UA 0.2 <=1 No No No Oct 24 Urobili E.U./dL E.U./dL informa informa informa 2017 nogen tion in tion in tion in 4:29 PM source source source data data data UA Negativ Negativ No No No Oct 24 Nitrite e e informa informa informa 2017 tion in tion in tion in 4:29 PM source source source data data data UA Leuk Negativ Negativ No No No Oct 24 Est e e informa informa informa 2017 tion in tion in tion in 4:29 PM source source source data data data UA Spec >=1.030 1.001 - No No Referen Oct 24 Grav 1.035 informa informa ce 2017 tion in tion in range 4:29 PM source source valid data data for random specime ns only. UA WBC 3-5 0 - 4 /HPF No No Oct 24 informa informa 2017 tion in tion in 4:29 PM source source data data UA RBC 0-2 0 - 3 /HPF No No Oct 24 informa informa 2017 tion in tion in 4:29 PM source source data data UA 2+ No No No No Oct 24 Squam informa informa informa informa 2017 Epi tion in tion in tion in tion in 4:29 PM source source source source data data data data UA Trace No No No No Oct 24 Mucous informa informa informa informa 2017 tion in tion in tion in tion in 4:29 PM source source source source data data data data UA Trace No No No No Oct 24 Amorph informa informa informa informa 2017 tion in tion in tion in tion in 4:29 PM source source source source data data data data UA 2+ No No No No Oct 24 Bacteri informa informa informa informa 2017 a tion in tion in tion in tion in 4:29 PM source source source source data data data data Auto Diff Observa Value Referen Units Interpr Notes Date tion ce etation Range Neutrop 67.4 No % No No Mar 22 hils informa informa informa 2017 [#/volu tion in tion in tion in 4:23 PM me] in source source source Blood data data data by Automat ed count Lymphoc 20.7 No % No No Mar 22 ytes informa informa informa 2017 [#/volu tion in tion in tion in 4:23 PM me] in source source source Blood data data data by Automat ed count Monocyt 8.6 No % No No Oct 22 es informa informa informa 2017 [#/volu tion in tion in tion in 4:23 PM me] in source source source Blood data data data by Automat ed count Eos 2.1 No % No No Oct 22 Percent informa informa informa 2017 tion in tion in tion in 4:23 PM source source source data data data Baso 1.2 No % No No Oct 22 Percent informa informa informa 2017 tion in tion in tion in 4:23 PM source source source data data data Neut# 6.7 1.8 - x10(3)/ No No Oct 22 7.7 mcL informa informa 2017 tion in tion in 4:23 PM source source data data Lymph# 2.0 0.6 - x10(3)/ No No Mar 22 4.8 mcL informa informa 2017 tion in tion in 4:23 PM source source data data [place]# 0.9 0.0 - x10(3)/ No No Mar 22 1.3 mcL informa informa 2017 tion in tion in 4:23 PM source source data data Eos# 0.2 0.0 - x10(3)/ No No Mar 22 0.5 mcL informa informa 2017 tion in tion in 4:23 PM source source data data Baso# 0.1 0.0 - x10(3)/ No No Mar 22 0.2 mcL informa informa 2017 tion in tion in 4:23 PM source source data data CBC Observa Value Referen Units Interpr Notes Date tion ce etation Range LEUKOCY 9.9 4.0 - x10(3)/ No No Mar 22 JAZMÍN 11.0 mcL informa informa 2017 tion in tion in 4:23 PM source source data data Erythro 4.39 3.80 - x10(6)/ No No Oct 24 cytes 5.10 mcL informa informa 2016 [#/volu tion in tion in 4:23 PM me] in source source Blood data data by Automat ed count Hemoglo 12.7 12.0 - gm/dL No Oct 24 bin 15.6 informa informa 2017 [Mass/v tion in tion in 4:23 PM olume] source source in data data Blood Hematoc 37.9 35.7 - % No Oct 24 rit 45.9 informa informa 2017 [Volume tion in tion in 4:23 PM source source Fractio data data n] of Blood by Automat ed count Erythro 86.4 82.5 - fL No Oct 24 cyte 99.8 informa informa 2017 mean tion in tion in 4:23 PM corpusc source source ular data data volume [Entiti c volume] by Automat ed count Erythro 28.9 27.0 - pg No Oct 24 cyte 34.3 informa informa 2016 mean tion in tion in 4:23 PM corpusc source source ular data data hemoglo bin [Entiti c mass] by Automat ed count Erythro 33.5 32.1 - gm/dL No Oct 24 cyte 35.3 informa informa 2016 mean tion in tion in 4:23 PM corpusc source source ular data data hemoglo bin concent ration [Mass/v olume] by Automat ed count Erythro 13.4 11.5 - % No Oct 24 cyte 15.0 informa informa 2016 distrib tion in tion in 4:23 PM ution source source width data data [Ratio] by Automat ed count Platele 219 144 - x10(3)/ No No Oct 24 ts 423 mcL informa informa 2016 [#/volu tion in tion in 4:23 PM me] in source source Blood data data by Automat ed count MPV 8.6 6.8 - fL No Oct 24 10.8 informa informa 2017 tion in tion in 4:23 PM source source data data Lipase Observa Value Referen Units Interpr Notes Date tion ce etation Range Lipase 14 13 - 60 IU/L No No Mar 14 Lvl informa informa 2014 tion in tion in 9:51 PM source source data data CMP Observa Value Referen Units Interpr Notes Date tion ce etation Range Sodium 139 136 - mmol/L No No Oct 16 145 informa informa 2014 tion in tion in 9:51 PM source source data data Potassi 3.5 3.5 - mmol/L No No Oct 16 um 5.0 informa informa 2014 [Moles/ tion in tion in 9:51 PM volume] source source in data data Serum or Plasma Chlorid 107 98 - mmol/L No No Oct 16 e 107 informa informa 2014 tion in tion in 9:51 PM source source data data Carbon 22 22 - 29 mmol/L No No Oct 16 dioxide informa informa 2014 , total tion in tion in 9:51 PM source source [Moles/ data data volume] in Serum or Plasma Anion 10 7 - 16 mmol/L No No Oct 16 Gap informa informa 2014 tion in tion in 9:51 PM source source data data CALCIUM 9.1 8.6 - mg/dL No Oct 16 .TOTAL 10.2 informa informa 2014 tion in tion in 9:51 PM source source data data Glucose 89 74 - mg/dL No No Oct 16 Lvl 100 informa informa 2014 tion in tion in 9:51 PM source source data data BUN 9 6 - 20 mg/dL No No Oct 16 informa informa 2014 tion in tion in 9:51 PM source source data data Creatin 0.77 0.51 - mg/dL No No Oct 16 ine 1.30 informa informa 2014 tion in tion in 9:51 PM source source data data Albumin 4.1 3.5 - gm/dL No No Oct 16 5.2 informa informa 2014 [Mass/v tion in tion in 9:51 PM olume] source source in data data Serum or Plasma Protein 7.5 6.4 - gm/dL No No Oct 16 8.3 informa informa 2014 [Mass/v tion in tion in 9:51 PM olume] source source in data data Serum or Plasma Bilirub 0.4 0.1 - mg/dL No No Oct 16 in.tota 1.3 informa informa 2014 l tion in tion in 9:51 PM [Mass/v source source olume] data data in Serum or Plasma ASPARTA 16 <=40 IU/L No No Oct 14 TE informa informa 2015 AMINOTR tion in tion in 9:51 PM ANSFERA source source SE data data Alanine 17 <=41 IU/L No No Oct 14 informa informa 2015 aminotr tion in tion in 9:51 PM ansfera source source se data data [Enzyma tic activit y/volum e] in Serum or Plasma Alkalin 100 35 - IU/L No No Oct 14 e 104 informa informa 2014 phospha tion in tion in 9:51 PM tase source source [Enzyma data data tic activit y/volum e] in Serum or Plasma HCG Qual Observa Value Referen Units Interpr Notes Date tion ce etation Range HCG Negativ No No No No Oct 14 QUAL e informa informa informa informa 2015 tion in tion in tion in tion in 9:45 PM source source source source data data data data Auto Diff Observa Value Referen Units Interpr Notes Date tion ce etation Range Neutrop 55.5 No % No No Oct 14 hils informa informa informa 2014 [#/volu tion in tion in tion in 9:32 PM me] in source source source Blood data data data by Automat ed count Lymphoc 28.0 No % No No Oct 14 ytes informa informa informa 2014 [#/volu tion in tion in tion in 9:32 PM me] in source source source Blood data data data by Automat ed count Monocyt 12.8 No % No No Oct 14 es informa informa informa 2014 [#/volu tion in tion in tion in 9:32 PM me] in source source source Blood data data data by Automat ed count Eos 3.1 No % No No Oct 14 Percent informa informa informa 2014 tion in tion in tion in 9:32 PM source source source data data data Baso 0.6 No % No No Oct 14 Percent informa informa informa 2015 tion in tion in tion in 9:32 PM source source source data data data Neut# 4.1 1.8 - x10(3)/ No No Oct 14 7.7 mcL informa informa 2015 tion in tion in 9:32 PM source source data data Lymph# 2.0 0.6 - x10(3)/ No No Oct 14 4.8 [facility] informa informa 2014 tion in tion in 9:32 PM source source data data Rutland# 0.9 0.0 - x10(3)/ No No Oct 14 1.3 mcL informa informa 2014 tion in tion in 9:32 PM source source data data Eos# 0.2 0.0 - x10(3)/ No No Oct 14 0.5 [facility] informa informa 2014 tion in tion in 9:32 PM source source data data Baso# 0.0 0.0 - x10(3)/ No No Oct 14 0.2 [facility] informa informa 2014 tion in tion in 9:32 PM source source data data CBC Observa Value Referen Units Interpr Notes Date tion ce etation Range LEUKOCY 7.3 4.0 - x10(3)/ No No Oct 14 JAZMÍN 11.0 [facility] informa informa 2014 tion in tion in 9:32 PM source source data data Erythro 4.75 3.80 - x10(6)/ No No Oct 14 cytes 5.10 [facility] informa informa 2014 [#/volu tion in tion in 9:32 PM me] in source source Blood data data by Automat ed count Hemoglo 13.1 12.0 - gm/dL No No Oct 14 bin 15.6 informa informa 2014 [Mass/v tion in tion in 9:32 PM olume] source source in data data Blood Hematoc 39.2 35.7 - % No No Oct 14 rit 45.9 informa informa 2014 [Volume tion in tion in 9:32 PM source source Fractio data data n] of Blood by Automat ed count Erythro 82.6 82.5 - fL No No Oct 14 cyte 99.8 informa informa 2014 mean tion in tion in 9:32 PM corpusc source source ular data data volume [Entiti c volume] by Automat ed count Erythro 27.5 27.0 - pg No No Oct 14 cyte 34.3 informa informa 2014 mean tion in tion in 9:32 PM corpusc source source ular data data hemoglo bin [Entiti c mass] by Automat ed count Erythro 33.4 32.1 - gm/dL No No Oct 16 cyte 35.3 informa informa 2014 mean tion in tion in 9:32 PM corpusc source source ular data data hemoglo bin concent ration [Mass/v olume] by Automat ed count Erythro 14.4 11.5 - % No No Oct 16 cyte 15.0 informa informa 2015 distrib tion in tion in 9:32 PM ution source source width data data [Ratio] by Automat ed count Platele 261 144 - x10(3)/ No No Oct 16 ts 423 mcL informa informa 2015 [#/volu tion in tion in 9:32 PM me] in source source Blood data data by Automat ed count MPV 7.9 6.8 - fL No No Oct 16 10.8 informa informa 2015 tion in tion in 9:32 PM source source data data UA Observa Value Referen Units Interpr Notes Date tion ce etation Range UA Yellow No No No No Oct 02 Color informa informa informa informa 2015 tion in tion in tion in tion in 10:15 source source source source PM data data data data UA Slightl Clear No Abnorma No Oct 02 Appear y Hazy informa l informa 2014 tion in tion in 10:15 source source PM data data UA Negativ Negativ No No No Oct 02 Glucose e e informa informa informa 2014 tion in tion in tion in 10:15 source source source PM data data data UA Negativ Negativ No No No Oct 02 Ketones e e informa informa informa 2014 tion in tion in tion in 10:15 source source source PM data data data UA Negativ Negativ No No No Oct 02 Blood e e informa informa informa 2014 tion in tion in tion in 10:15 source source source PM data data data UA pH 6.0 5.0 - No No Referen Oct 02 8.0 informa informa ce 2014 tion in tion in range 10:15 source source valid PM data data for random specime ns only. UA 30 Negativ No Abnorma No Oct 02 Protein mg/dl e informa l informa 2014 tion in tion in 10:15 source source PM data data UA 0.2 <=1 No No No Oct 02 Urobili mg/dl mg/dl informa informa informa 2014 nogen tion in tion in tion in 10:15 source source source PM data data data UA Negativ Negativ No No No Oct 02 Nitrite e e informa informa informa 2014 tion in tion in tion in 10:15 source source source PM data data data UA Leuk Negativ Negativ No No No Oct 02 Est e e informa informa informa 2014 tion in tion in tion in 10:15 source source source PM data data data UA Spec >=1.030 No No No Referen Oct 02 Grav informa informa informa ce 2014 tion in tion in tion in range 10:15 source source source valid PM data data data for random specime ns only. UA WBC 0-3 No /HPF No No Oct 02 informa informa informa 2014 tion in tion in tion in 10:15 source source source PM data data data UA RBC 0 No /HPF No No Oct 02 informa informa informa 2014 tion in tion in tion in 10:15 source source source PM data data data UA Few No No No No Oct 02 Squam informa informa informa informa 2014 Epi tion in tion in tion in tion in 10:15 source source source source PM data data data data UA 1+ No No No No Oct 02 Bacteri informa informa informa informa 2015 a tion in tion in tion in tion in 10:15 source source source source PM data data data data UA Hyal Rare No /LPF No No Oct 02 Cast informa informa informa 2014 tion in tion in tion in 10:15 source source source PM data data data PN US OB DETAIL ANATOMY SINGLE OR FIRST GESTATION Observa Value Referen Units Interpr Notes Date tion ce etation Range Obstetr No No No No Mar 25 ic informa informa informa informa 2013 Ultraso tion in tion in tion in tion in und source source source source Report\\ data data data data .br\\Det selina Survey\\ .br\\Ref erral from:\\. br\\MANINDER GODINEZ MD [facility] are\\.br \\[facility] [address]\\. br\\[address] [facility] [place] [address]\\. br\\[address] \\.br\\F [place] martin [address] [address] \\.br\\P robert: [phone] Fax \\.br\\F ax: \\.br\\- ------- ------- ------- ------- ------- ------- ------- ------- ------- ------\\ .br\\PAT IENT INFORMA TION:\\. br\\Name : CHRIS BOWEN MR#: [id number] 0\\.br\\A ge: 17 y/o G1 Exam Date: 03/25/20 13\\.br\\ : 04/20/19 96 Visit #: 3\\.br\\L MP: 10/21/19 13 Locatio n: [facility]\\.br\\ [facility] are-- [facility] tomer\\.br\\# Fetuses : 1\\.br\\I NDICATI ON: Exclude anomali es\\.br\\ ------- ------- ------- ------- ------- ------- ------- ------- ------- ------- \\.br\\PH YSICAL EXAM:\\. br\\Heig ht: 5' 8"\\.br\\ Pre-Pre gnancy Weight: 249 lbs.\\.b r\\Pre-P regnanc y BMI: 37.9 (Overwe ight)\\. br\\Curr ent Weight: 251 lbs.\\.b r\\MEDIC AL HISTORY :\\.br\\A llergie s: No\\.br\\ Other/C omments : Medicat ions: Prenata l vitamin s\\.br\\- ------- ------- ------- ------- ------- ------- ------- ------- ------- ------\\ .br\\NICHOLE ING:\\.b r\\Assig bina GA\\.br\\ GA by LMP GA by US (CRL) SAMIRA\\.br \\22 2/7 wks 19 5/7 wks 20 0/7 wks 08/12/13\\ .br\\BIO METRY:\\ .br\\BPD : 47.1 mm 20 2/7 wks HC: 175.6 mm 20 0/7 wks\\.br \\(59%) (44%)\\. br\\Femu r: 31.1 mm 19 5/7 wks AC: 144.5 mm 19 5/7 wks\\.br \\(25%) (32%)\\. br\\Ceph Index:7 4 % (75%-85 %) HC/AC: 1.22 (0.99-1 .23)\\.b r\\EFW: 335 gms 0 lbs 12 oz (%)\\.br \\Lat Ventric les: R-5.7 mm Cerebel lum: 19.5 mm (40%)\\. br\\Cist con Magna: 5.3 mm Nuchal Fold: 3.51 mm\\.br\\ Heart Rate: 129 bpm FL/AC: 0.22\\.b r\\HL/BP D: 0.69 FL/BPD: 0.66\\.b r\\Humer us: 32.5 mm 20\\.br\\ 7 (68%)\\. br\\PRES ENTATIO N/CORD/ PLACENT A/FLUID /CERVIX :\\.br\\P resenta tion: Cephali c\\.br\\U mbilica l Cord: 3 Vessel Cord. Normal inserti on into the placent a.\\.br\\ Placent a: Anterio r. There Is No Evidenc e Of Placent a Previa. \\.br\\Gr lorie 1\\.br\\A mniotic Fluid: Maximum Vertica l Pocket = 6.1 cm. Subject alexia AF\\.br\\ Volume: Normal. \\.br\\Ce rvix: Normal\\ .br\\FET AL ANATOMI KSENIA SURVEY: \\.br\\No rmal\\.b r\\----- -\\.br\\C alvariu m Lateral Ventric les\\.br \\Cerebe llum Choroid Plexus\\ .br\\Cis terna Magna Midline Falx\\.b r\\Cavum Septum Pelluci dum Neck\\.b r\\Nucha l Fold Orbits\\ .br\\Fac e Nose\\.b r\\Lips Cervica l Spine\\. br\\Thor acic Spine Lumbar Spine\\. br\\Sacr um Four Chamber View\\.b r\\RVOT LVOT\\.b r\\Aorti c Arch Cardiac Arnold\\.b r\\Cardi ac Positio n Heart Motion\\ .br\\Be radha Arch IVC\\.br \\SVC Cardiac Rhythm\\ .br\\Jennie phragm Ventral Wall\\.b r\\Stoma ch Left Kidney\\ .br\\Rig ht Kidney Bladder \\.br\\Jeffrey wel Genital ia\\.br\\ Left Humerus Right Humerus \\.br\\Le ft Forearm Right Forearm \\.br\\Le ft Hand Right Hand\\.b r\\Lower Extremi ties Umbilic al Cord\\.b r\\Subop timal\\. br\\---- ------\\ .br\\Lef t Fingers Right Fingers \\.br\\No t Visuali zed\\.br \\------ ------- -\\.br\\P rofile\\ .br\\Abn ormal\\. br\\---- ----\\.b r\\None identif ied\\.br \\WHIZZER OPERATOR FINDING S:\\.br\\ Uterus: Normal\\ .br\\Ova melissa: Left: Not Seen\\.b r\\Right : Not Seen\\.b r\\EFW Summary Table\\. br\\Exam Date Fetus # EFW Percent ile\\.br \\------ --- ------- ---- ------- ---\\.br \\ 3 1 335\\.br \\AMNIOT IC FLUID VOLUME: \\.br\\NO RMAL Subject alexia AF Volume: Normal. Maximum Vertica l\\.br\\P ocket: 6.1 cm\\.br\\ CERVIX: Visuali zed\\.br \\Cervic al Evaluat ion: No\\.br\\ ------- ------- ------- ------- ------- ------- ------- ------- ------- ------- \\.br\\CO MMENTS: \\.br\\Vi sualiza tion of anatomy is limited by materna l obesity ,\\.br\\s uboptim al positio n.\\.br\\ The biometr ic measure ments are consist ent with the\\.br \\gestat ional age establi shed by a prior ultraso und perform ed here.\\. br\\The amnioti c fluid volume is within normal limits. There are no\\.br\\ gross abnorma lities identif ied.\\.b r\\Thank you for this referra l.\\.br\\ Electro nically signed by KYLEIGH Heck\\.br\\S MD AYO, PhD on 03/25/20 13 at\\.br\\ 2:02 pm\\.br\\ ------- ------- ------- ------- ------\\ .br\\DORIE MAZA MD, PhD\\.br \\------ ------- ------- ------- ------- ------- -\\.br\\S onograp her: Flaca Mejía BSN, RNC, RDMS PN US OB 14+ WEEKS SINGLE OR FIRST GESTATION Observa Value Referen Units Interpr Notes Date tion ce etation Range Obstetr No No No No Feb 12 ic informa informa informa informa 2012 Ultraso tion in tion in tion in tion in und source source source source Report\\ data data data data .br\\Ear ly Limited Survey\\ .br\\Ref erral from:\\. br\\MANINDER GODINEZ MD [facility] are\\.br \\[facility] 1 Related Content Database (RCDb) [address]\\. br\\[address] [facility] [place] [place] [address]\\. br\\[address] Att[address] [phone]\\.br\\[place] [address] Reading Room \\.br\\P robert: [phone] Fax \\.br\\F ax: [phone]\\.br\\- ------- ------- ------- ------- ------- ------- ------- ------- ------- ------\\ .br\\PAT IENT INFORMA TION:\\. br\\Name : CHRIS BOWEN MR#: [id number] 0\\.br\\A ge: 17 y/o G1 Exam Date: 02/13/20 13\\.br\\ : 04/20/19 96 Visit #: 1\\.br\\L MP: 10/21/19 13 [facility]ati n[facility] \\.br\\ [facility] are-- [place]\\.br\\# Fetuses : 1\\.br\\I NDICATI ONS: Vaginal bleedin g, tobacco use\\.br \\------ ------- ------- ------- ------- ------- ------- ------- ------- ------- -\\.br\\P HYSICAL EXAM:\\. br\\Heig ht: 5' 8"\\.br\\ Pre-Pre gnancy Weight: 240 lbs.\\.b r\\Pre-P regnanc y BMI: 36.5 (Overwe ight)\\. br\\Curr ent Weight: 246 lbs.\\.b r\\MEDIC AL HISTORY :\\.br\\A llergie s: No\\.br\\ Other/C omments : Medicat ions: Prenata l vitamin s\\.br\\- ------- ------- ------- ------- ------- ------- ------- ------- ------- ------\\ .br\\LAZARO LAROSE: Transab dominal and transva ginal.\\ .br\\--- ------- ------- ------- ------- ------- ------- ------- ------- ------- ----\\.b r\\DATIN G:\\.br\\ Assigne d GA\\.br\\ GA by LMP GA by Ultraso und (CRL) SAMIRA\\.br \\16 10/09 wks 08/11 wks 08/11 wks 08/12/13\\ .br\\ECT OPIC PREGNAN CY:\\.br \\Locati on:\\.br \\EGA:\\. br\\Uter ine Changes :\\.br\\V iabilit y:\\.br\\ GESTATI ON:\\.br \\\\ .br\\Sac [place]-R ump Heart\\. br\\Marquise urement Yolk Sac Length Rate\\.b r\\----- ------- -- ------- ------- ------- ------- - ------- \\.br\\Pr esent --- 80.8mm (08/11 Present \\.br\\wk s)\\.br\\ UTERUS: \\.br\\No rmal\\.b r\\OVARI ES:\\.br \\Right: Normal - 28 x 9 x 10 mm. Left: Normal - 28 x 15 x 17\\.br\\ mm.\\.br \\------ ------- ------- ------- ------- ------- ------- ------- ------- ------- -\\.br\\C OMMENTS :\\.br\\A n intraut erine pregnan cy is identif ied. A well formed gestati onal\\.b r\\sac is present . A single fetus is noted. The crown-r ump\\.br \\length is consist ent with 14 1/7 weeks gestati on, corresp onding to\\.br\\ an off-nichole es scenari o. cardiac activit y is present . The\\.br \\right ovary is normal in size and positio n. The left ovary is\\.br\\ normal in size and positio n. A sonoluc ency with mixed echoes is\\.br\\ noted adjacen t to the cervix measuri ng 6 x 6 x 7 mm.\\.br \\Recomm end correct ion of the SAMIRA to 4, as well as a repeat\\ .br\\sca n at 20 weeks gestati on to evaluat e anatomy .\\.br\\T reinaldo you for this referra l.\\.br\\ Electro nically signed by DAVID BIRD\\. Edson thrasher on 02/13/20 13 at 11:03 am\\.br\\ ------- ------- ------- ------- ------\\ .br\\DAVID BIRD M.D.\\.b r\\----- ------- ------- ------- ------- ----\\.b r\\Sonog rapher: Radha Lopez , RT, RDMS PN US OB TRANSVAGINAL Observa Value Referen Units Interpr Notes Date tion ce etation Range Obstetr No No No No Feb 12 ic informa informa informa informa 2013 Ultraso tion in tion in tion in tion in und source source source source Report\\ data data data data .br\\Ear ly Limited Survey\\ .br\\Ref erral from:\\. br\\MANINDER GODINEZ MD [facility] are\\.br \\[facility] [address] [place] [address]\\. br\\[address] [place] [address]\\. br\\[address] \\.br\\[place] [address] Reading Room \\.br\\P robert: [phone] Fax \\.br\\F ax: \\.br\\- ------- ------- ------- ------- ------- ------- ------- ------- ------- ------\\ .br\\PAT IENT INFORMA TION:\\. br\\Name : CHRIS BOWEN MR#: [id number]\\.br\\A ge: 17 y/o G1 Exam Date: 02/13/20 13\\.br\\ : 04/20/19 96 Visit #: 2\\.br\\L MP: 10/21/19 13 [facility]atio [facility] \\.br\\ [facility] are-- [place]\\.br\\# Fetuses : 1\\.br\\I NDICATI ON: Vaginal bleedin g\\.br\\- ------- ------- ------- ------- ------- ------- ------- ------- ------- ------\\ .br\\--- ------- ------- ------- ------- ------- ------- ------- ------- ------- ----\\.b r\\DATIN G:\\.br\\ Assigne d GA\\.br\\ GA by LMP GA by Ultraso und (VENUS) SAMIRA\\.br \\16 3/7 wks 14 7 wks 08/12/13\\ .br\\ECT OPIC PREGNAN CY:\\.br \\Locati on:\\.br \\EGA:\\. br\\Uter ine Changes :\\.br\\V iabilit y:\\.br\\ GESTATI ON:\\.br \\\\ .br\\Sac [place]-R ump Heart\\. br\\Marquise urement Yolk Sac Length Rate\\.b r\\----- ------- -- ------- ------- ------- ------- - ------- \\.br\\-- - --- --\\.br\\ ------- ------- ------- ------- ------- ------- ------- ------- ------- ------- \\.br\\CO MMENTS: \\.br\\Se e >14 weeks exam for report. \\.br\\El ectroni zeus signed by DAVID BIRD\\. Edson thrasher on 02/13/20 13 at 10:13 am\\.br\\ ------- ------- ------- ------- ------\\ .brCURT BIRD M.D.\\.b r\\----- ------- ------- ------- ------- ----\\.b r\\Sonog rapher: Radha Lopez , RT, RDMS Chl/GC Genital Results Observa Value Referen Units Interpr Notes Date tion ce etation Range C. Genital No No No Extract Feb 10 trachom informa informa informa ion of 2012 atis/N. tion in tion in tion in genetic 10:17 source source source AM gonorrh data data data materia oeae l from Specime urine n and Thin Prep samples was perform ed using a method that was develop ed and validat ed in the perform ing laborat ory. Fadi d methodo logy is availab le upon request .\\.br\\ Chlamyd Negativ No No No No Zay 9 ia e informa informa informa informa 2013 trachom tion in tion in tion in tion in 10:17 atis source source source source AM data data data data Neisser Negativ No No No No Feb 10 ia e informa informa informa informa 2013 gonorrh tion in tion in tion in tion in 10:17 oeae source source source source AM data data data data Ag Trich Observa Value Referen Units Interpr Notes Date tion ce etation Range Trichom Negativ No No No No Feb 6 onas Ag e informa informa informa informa 2013 tion in tion in tion in tion in 1:29 PM source source source source data data data data ABORh Observa Value Referen Units Interpr Notes Date tion ce etation Range ABORh O POS No No No No Feb 07 Int informa informa informa informa 2013 tion in tion in tion in tion in 7:27 PM source source source source data data data data BhCG Quant Observa Value Referen Units Interpr Notes Date tion ce etation Range Beta 14920 0 - 5 mIU/mL High No Feb 07 hCG informa 2013 Quant tion in 1:33 PM source data Auto Diff Observa Value Referen Units Interpr Notes Date tion ce etation Range Neutrop 68.7 No % No No Feb 07 hils informa informa informa 2012 [#/volu tion in tion in tion in 12:58 me] in source source source PM Blood data data data by Automat ed count Lymphoc 18.5 No % No No Feb 07 ytes informa informa informa 2012 [#/volu tion in tion in tion in 12:58 me] in source source source PM Blood data data data by Automat ed count Monocyt 8.7 No % No No Feb 07 es informa informa informa 2012 [#/volu tion in tion in tion in 12:58 me] in source source source PM Blood data data data by Automat ed count Eos 3.0 No % No No Feb 07 Percent informa informa informa 2013 tion in tion in tion in 12:58 source source source PM data data data Baso 1.1 No % No No Feb 07 Percent informa informa informa 2013 tion in tion in tion in 12:58 source source source PM data data data Neut# 6.4 1.8 - x10(3)/ No No Feb 07 7.7 mcL informa informa 2013 tion in tion in 12:58 source source PM data data Lymph# 1.7 1.0 - x10(3)/ No No Feb 6 4.8 mcL informa informa 2013 tion in tion in 12:58 source source PM data data [place]land# 0.8 0.0 - x10(3)/ No No Feb 07 1.3 mcL informa informa 2013 tion in tion in 12:58 source source PM data data Eos# 0.3 0.1 - x10(3)/ No No Feb 07 0.5 mcL informa informa 2013 tion in tion in 12:58 source source PM data data Baso# 0.1 0.0 - x10(3)/ No No Feb 07 0.2 mcL informa informa 2013 tion in tion in 12:58 source source PM data data CBC Observa Value Referen Units Interpr Notes Date tion ce etation Range LEUKOCY 9.3 4.0 - x10(3)/ No No Feb 07 JAZMÍN 11.0 mcL informa informa 2012 tion in tion in 12:58 source source PM data data Erythro 4.32 4.00 - x10(6)/ No No Feb 07 cytes 5.10 mcL informa informa 2012 [#/volu tion in tion in 12:58 me] in source source PM Blood data data by Automat ed count Hemoglo 12.8 12.0 - gm/dL No No Feb 07 bin 15.7 informa informa 2012 [Mass/v tion in tion in 12:58 olume] source source PM in data data Blood Hematoc 36.9 36.0 - % No No Feb 07 rit 45.9 informa informa 2012 [Volume tion in tion in 12:58 source source PM Fractio data data n] of Blood by Automat ed count Erythro 85.5 80.0 - fL No No Feb 07 cyte 95.8 informa informa 2013 mean tion in tion in 12:58 corpusc source source PM ular data data volume [Entiti c volume] by Automat ed count Erythro 29.6 27.0 - pg No No Feb 07 cyte 33.2 informa informa 2012 mean tion in tion in 12:58 corpusc source source PM ular data data hemoglo bin [Entiti c mass] by Automat ed count Erythro 34.6 33.0 - gm/dL No No Feb 07 cyte 36.0 informa informa 2013 mean tion in tion in 12:58 corpusc source source PM ular data data hemoglo bin concent ration [Mass/v olume] by Automat ed count Erythro 12.9 11.5 - % No No Feb 07 cyte 14.5 informa informa 2013 distrib tion in tion in 12:58 ution source source PM width data data [Ratio] by Automat ed count Platele 210 150 - x10(3)/ No No Feb 07 ts 400 mcL informa informa 2013 [#/volu tion in tion in 12:58 me] in source source PM Blood data data by Automat ed count MPV 8.7 7.0 - fL No No Feb 07 12.0 informa informa 2013 tion in tion in 12:58 source source PM data data
--- OUTSIDE RECORDS SUMMARY | 2017-05-18 07:56 | External Medical Summary Rpt ---
[...] Date tion ce etation Range COMMENTS TO INDIVIDUAL PENSION CONSULTANT: VERIFYING URINE SAMPLE IS THIS PT'S Choriogon [...] in [address], [place], [place] Probe & [id number] target 69Lab Directo amplifi r: cation Vincent method Gloria ti PhD, Phone: [phone] Chlamyd/GC TMA Observa Value Referen Units [...] using the Aptima Combo 2 assay from [employer] /[employer] be.\\.br \\A negativ e result does not [...] of this test were validat ed by [facility] are laborat ory. This assay is FDA [...] develop ed and validat ed by the [facility] are laborat ory. Detaile d methodo logy is availab le upon request . hCG Quant Observa Value Referen Units Interpr Notes Date tion ce etation Range hCG 20747 No mIU/mL No \\.br\\< Oct 24 Quant [...] in 4:23 PM source source data data Mcclain# 0.9 0.0 - x10(3)/ No No Mar [...] - x10(3)/ No No Oct 14 4.8 [facility] informa informa 2014 tion in tion in 9:32 PM source source data data Mcclain# 0.9 0.0 - x10(3)/ No No Oct 14 1.3 mcL informa informa 2014 tion in tion in 9:32 PM source source data data Eos# 0.2 0.0 - x10(3)/ No No Oct 14 0.5 [facility] informa informa 2014 tion in tion in 9:32 PM source source data data Baso# 0.0 0.0 - x10(3)/ No No Oct 14 0.2 [facility] informa informa 2014 tion in tion in 9:32 PM source source data data CBC Observa Value Referen Units Interpr Notes Date tion ce etation Range LEUKOCY 7.3 4.0 - x10(3)/ No No Oct 14 JAZMÍN 11.0 [facility] informa informa 2014 tion in tion in 9:32 PM source source data data Erythro 4.75 3.80 - x10(6)/ No No Oct 14 cytes 5.10 [facility] informa informa 2014 [#/volu tion in [...] erral from:\\. br\\MANINDER GODINEZ MD Marietta Meyer [facility] are\\.br \\[facility] [address]\\. br\\[address] [facility] [place] [address]\\. br\\[address] \\.br\\F HELENA martin [address] [address] \\.br\\P robert: Fax \\.br\\F ax: \\.br\\- ------- ------- ------- ------- ------- ------- ------- ------- ------- ------\\ .br\\PAT IENT INFORMA TION:\\. br\\Name : CHRIS BOWEN MR#: [id number] 0\\.br\\A ge: 17 y/o G1 Exam Date: 03/25/20 13\\.br\\ : 04/20/19 96 Visit #: 3\\.br\\L MP: 10/21/19 13 Locatio n: [facility]\\.br\\ [facility] are-- [facility] tomer\\.br\\# Fetuses : 1\\.br\\I NDICATI ON: [...] View\\.b r\\RVOT LVOT\\.b r\\[facility]i c [facility] Card[facility] [place]\\.b r\\Cardi ac Positio n Heart Motion\\ .br\\Be [...] .br\\Abn ormal\\. 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 br\\MANINDER GODINEZ MD [facility] are\\.br \\[facility] [address]\\. br\\[address] [facility] [place] [address]\\. br\\[address] \\.br\\[place] [address] Reading Room [phone]\\.br\\P robert: Fax \\.br\\F ax: \\.br\\- ------- ------- ------- ------- ------- ------- ------- ------- ------- ------\\ .br\\PAT IENT INFORMA TION:\\. br\\Name : CHRIS BOWEN MR#: [id number] 0\\.br\\A ge: 17 y/o G1 Exam Date: 02/13/20 13\\.br\\ : 04/20/19 96 Visit #: 1\\.br\\L MP: 10/21/19 13 Locati n: [facility] \\.br\\ [facility] are-- [place]\\.br\\# Fetuses : [...] :\\.br\\V iabilit y:\\.br\\ GESTATI ON:\\.br \\\\ .br\\Sac Oyens-R ump Heart\\. br\\Marquise urement Yolk Sac Length [...] Survey\\ .br\\Ref erral from:\\. br\\MANINDER GODINEZ MD [facility] are\\.br \\[facility] [address] [place] [address]\\. br\\[address] [place] [address]\\. br\\[address] [phone]\\.br\\[place] [address] Reading Room \\.br\\P robert: Fax \\.br\\F ax: [phone]\\.br\\- ------- ------- ------- ------- ------- ------- ------- ------- ------- ------\\ .br\\PAT IENT INFORMA TION:\\. br\\Name : CHRIS BOWEN MR#: [id number] 0\\.br\\A ge: 17 y/o G1 Exam Date: 02/13/20 13\\.br\\ : 04/20/19 96 Visit #: 2\\.br\\L MP: 10/21/19 13 Locatio n: [facility] \\.br\\ [facility] are-- [place]\\.br\\# Fetuses : [...] :\\.br\\V iabilit y:\\.br\\ GESTATI ON:\\.br \\\\ .br\\Sac [place]yens-R ump Heart\\. br\\Marquise urement Yolk Sac Length [...] Notes Date tion ce etation Range Beta 68075 0 - 5 mIU/mL High No Feb [...] in 12:58 source source PM data data Mcclain# 0.8 0.0 - x10(3)/ No No Feb [...]
[2017-05-18 08:40] VITALS: BP 119/64
== END 2017-05-18 15:52 | disposition home or self-care (01) | DRG 766 ==
LOC: OB 01:55
PROVIDERS: Nurse Practitioner Obstetrics & Gynecology
PROC: 10D00Z1 Extraction of Products of Conception, Low, Open Approach (ICD-10-PCS; principal; 2017-05-15 18:00)
DX: O13.3 Gestational [pregnancy-induced] hypertension without significant proteinuria, third trimester (principal); O99.214 Obesity complicating childbirth; Z37.0 Single live birth; Z3A.39 39 weeks gestation of pregnancy; O33.8 Maternal care for disproportion of other origin
CPT/HCPCS: C1758; G0238; J2405